=== PATIENT | male | born 1965 | race Caucasian/White ===

== ENCOUNTER 2019-12-07 19:04 | Emergency (ER) | payer SELFPAY ==
[~2019-12-07] VITALS: Ht 180.3 cm; Wt 81.6 kg
--- OUTSIDE RECORDS SUMMARY | 2019-12-07 19:59 | XMS REPORT | Continuity of Care Document ---
Author Author [facility] t Organization [facility] Address [address] [place] [address] Phone Unavailable Care Team Providers Care Surgical Aide Name Role Phone Unavailable Unavailable Payers Payer Name Policy Type Policy Number Effective Date Expiration Date S ource Problems This patient has no known problems. Allergies, Adverse Reactions, Alerts Allergy Name Allergy Type Status Severity Reaction(s) Onset Date Inacti ve Date Treating Clinician Comments Source Penicillins DA Active U 2019-08-23 00:00:00 [facility] No Known Allergies DA Active U 2019-08-23 00:00:00 [facility] Medications This patient has no known medications. Procedures This patient has no known procedures. Results Test Description Test Time Test Comments Results Result Comments Source COVID 19 Asymptomatic IH AG 2019-11-23 14:23:00 Test Item COVID 19 Asymptomatic IH AG (test code = COVNONPUIAG) NEGATIVE BASIC METABOLIC [id number] 07:18:00* Test Item Value Reference Range Interpretation Comments SODIUM (test code = NA) 140 mmol/L 136-145 N POTASSIUM (test code = K) 3.8 mmol/L 3.5-5.1 N CHLORIDE (test code = CL) 108.0 mmol/L 98-107 H CARBON DIOXIDE (test code = CO2) 26.0 mmol/L 21-32 N ANION GAP (test code = GAP) 9.8 10-20 L GLUCOSE (test code = GLU) 86 mg/dL 74-106 N BLOOD UREA NITROGEN (test code = BUN) 16 mg/dL 7-18 N GLOMERULAR FILTRATION RATE (test code = GFR) > 60 mL/min >=60 Estimated GFR by using Modified MDRD formula.Chronic kidney disease is defined as either kidney damageor GFR <60 mL/min/1.73 m2 for >3 months. CREATININE (test code = CREAT) 1.00 mg/dL 0.7-1.3 N BUN/CREATININE RATIO (test code = BUN/CREA) 15.7 10-20 N CALCIUM (test code = CA) 8.5 mg/dL 8.5-10.1 N BASIC METABOLIC [id number] 06:57:00* Test Item Value Reference Range Interpretation Comments SODIUM (test code = NA) 140 mmol/L 136-145 N POTASSIUM (test code = K) 3.8 mmol/L 3.5-5.1 N CHLORIDE (test code = CL) 108.0 mmol/L 98-107 H CARBON DIOXIDE (test code = CO2) mmol/L 21-32 ANION GAP (test code = GAP) 10-20 GLUCOSE (test code = GLU) mg/dL 74-106 BLOOD UREA NITROGEN (test code = BUN) mg/dL 7-18 GLOMERULAR FILTRATION RATE (test code = GFR) mL/min >=60 CREATININE (test code = CREAT) mg/dL 0.7-1.3 BUN/CREATININE RATIO (test code = BUN/CREA) 10-20 CALCIUM (test code = CA) mg/dL 8.5-10.1 PROTHROMBIN [id number] 06:37:00* Test Item Value Reference Range Interpretation Comments PROTHROMBIN TIME PATIENT (test code = PTP) 12.7 seconds 9.0-14.0 N INTERNATIONAL NORMAL RATIO (test code = INR) 1.1 0.8-1.2 N The therapeutic range for oral anticoagulant therapy formost indications is an international normalized ratio (INR)of between 2.0 and 3.0. The recommended therapeutic INRrange for various clinical situations is listed below: Clinical Situation INR range Pulmonary e mbolism treatment (2.0-3.0)Venous thrombosis treatmentVenous thrombosis prophylaxis (high risk surgery)Prevention of systemic embolism from: Acute myocardial infarction Valvular heart disease Atrial fibrillation Mechanical prosthetic heart valves (2.5-3.5) IS PATIENT ON ANTICOAGULANTS? YLIST ANTICOAGULANTS LOVENOXCBC W/AUTO DIFF 2019-11-23 06:32:00* Test Item Value Reference Range Interpretation Comments WHITE BLOOD CELL (test code = WBC) 6.8 K/mm3 4.5-12.5 N RED BLOOD CELL (test code = RBC) 5.07 mill/mm3 4.0-5.8 N HEMOGLOBIN (test code = HGB) 15.7 gram/dL 13.0-17.5 N HEMATOCRIT (test code = HCT) 47.0 % 42.0-52.0 N MEAN CELL VOLUME (test code = MCV) 92.7 fL 80-98 N MEAN CELL HGB (test code = MCH) 31.0 picogram 27.0-33.0 N MEAN CELL HGB CONCETRATION (test code = MCHC) 33.4 gram/dL 33.0-36. 0 N RED CELL DISTRIBUTION WIDTH (test code = RDW) 13.4 % 11.6-16. 2 N RED CELL DISTRIBUTION WIDTH SD (test code = RDW-SD) 45.7 fL 37 .0-51.0 N PLATELET COUNT (test code = PLT) 241 K/mm3 150-450 N MEAN PLATELET VOLUME (test code = MPV) 10.4 fL 6.7-11.0 N NEUTROPHIL % (test code = NT%) 43.6 % 39.0-69.0 N IMMATURE GRANULOCYTE % (test code = IG%) 0.3 % 0.0-5.0 N LYMPHOCYTE % (test code = LY%) 41.0 % 25.0-55.0 N MONOCYTE % (test code = MO%) 11.4 % 0.0-10.0 H EOSINOPHIL % (test code = EO%) 2.8 % 0.0-5.0 N BASOPHIL % (test code = BA%) 0.9 % 0.0-1.0 N NUCLEATED RBC % (test code = NRBC%) 0.0 % 0-0 N NEUTROPHIL # (test code = NT#) 2.94 K/mm3 1.8-7.7 N IMMATURE GRANULOCYTE # (test code = IG#) 0.02 x10 3/uL 0-0.03 N LYMPHOCYTE # (test code = LY#) 2.77 K/mm3 1.0-5.0 N MONOCYTE # (test code = MO#) 0.77 K/mm3 0-0.8 N EOSINOPHIL # (test code = EO#) 0.19 K/mm3 0.0-0.5 N BASOPHIL # (test code = BA#) 0.06 K/mm3 0.0-0.2 N NUCLEATED RBC # (test code = NRBC#) 0.00 K/mm3 0.0-0.1 N MANUAL DIFF REQUIRED (test code = MDIFF) NO - XR FEMUR MIN 2 VWS [id number] 18:17:00 FAX: Harvey Rodgers MD [phone] [place]: St: ADM FAX: Sumit Villavicencio NP [phone] FAX: Sven Wild [phone] Name: JAEMELVIN MIRANDA [facility] : 1965 Age/S: 54/M [address] [facility] Unit #: [id number] Loc: V.[address] [place] [address] Phys: Sumit Villavicencio NP Acct: [id number] Dis Date: Status: ADM IN ONE #: [phone] Exam Date: 11/20/20191811 FAX #: [phone] Reason: PAIN S/P FALL AT HOME EXAMS: CPT CODE: [id number] XR FEMUR MIN 2 VWS 70158 REASON FOR EXAM: PAIN S/P FALL AT HOME EXAM ORDER DATE: 11/20/2019 12:00 AM Ordering: Sumit Villavicencio NP Attending:Nilo Rodgers MD Location:[facility] PROCEDURE: - XR FEMUR MIN 2 VWS LT FINDINGS: 3 views of the left femur were obtained. The oss eous structures are unremarkable in size and shape. The joint spaces are maintained. No evidence of fracture. There is normal alignment of the left hip joint IMPRESSION: Unremarkable left femur at 1817 Reported and signed by: Costa Pantoja M.D. CC: Harvey Rodgers MD; Sumit Villavicencio NP; Sven Ayers DO Technologist: RT JAVIER(Michelle) Trnscrd Date/Time/By: 11/20/2019 (1816) : By: Coleman Orig Print D/T: S: 11/20/2019 (1819) PAGE 1 Signed Report - XR SHOULDER 2 + V [id number] 18:16:00 FAX: Harvey Rodgers MD [phone] [place]: St: ADM FAX: Sumit Villavicencio NP [phone] FAX: Sven Wild DO [phone] Name: MELVIN ROWE [facility] : 1965 Age/S: 54/M [address] [facility] Unit #: [id number] Loc: V[address] [place] [address] Phys: Sumit Villavicencio NP Acct: [id number] Dis Date: Status: ADM IN [facility] #: [phone] Exam Date: 11/20/20191811 FAX #: [phone] Reason: PAIN S/P FALL AT HOME EXAMS: CPT CODE: [id number] XR SHOULDER 2 + [place] [address] REASON FOR EXAM: PAIN S/P FALL AT HOME EXAM ORDER DATE: 11/20/2019 12:00 AM Ordering: Sumit Villavicencio NP Attending:Nilo Rodgers MD Location:[facility] PROCEDURE: - XR SHOULDER 2 + V LT FINDINGS: 3 views of the left shoulder were obtained. The o sseous structures are unremarkable in size and shape. The joint spaces ar e maintained. There is normal alignment of the humeral head. No e vidence of fracture. The acromial clavicular joint is intact I MPRESSION: Unremarkable left shoulder at 1816 Reported and signed by: Marguerite Pantoja M.D. CC: Harvey Rodgers MD; Sumit Villavicencio NP; Sven Luna DO Technologist: RT JAVIER(R) Tori rnscrd Date/Time/By: 11/20/2019 (1815) : By: Coleman Orig Print D/T: S: 11/20/2019 (1818) PAGE 1 Sign ed Report [id number] 23:10:00* Test Item Value Reference Range Interpretation Comments TROPONIN-I (test code = TROPI) <0.015 ng/mL 0-0.045 N COMMENTS TO FUNERAL ARRANGEMENT DIRECTOR: COLLECT 3 HOURS AFTER PREVIOUS [id number] 18:56:00* Test Item Value Reference Range Interpretation Comments TROPONIN-I (test code = TROPI) <0.015 ng/mL 0-0.045 N COMMENTS TO FUNERAL ARRANGEMENT DIRECTOR: COLLECT 3 HOURS AFTER PREVIOUS SAMPLEDRUGS OF ABUSE SCREEN [id number] 15:32:00* Test Item Value Reference Range Interpretation Comments UA PH DIPSTICK (test code = CIERA) 5.5 5.0-8.0 URN COCAINE (test code = COCAURN) NEGATIVE <300 ng/mL URN CANNABINOIDS (test code = CANNABURN) NEGATIVE <50 ng/mL URN AMPHETAMINE (test code = AMPHETURN) NEGATIVE <1000 ng/mL URN BARBITURATE (test code = BARBITURN) NEGATIVE <200 ng/mL URN BENZODIAZEPINE (test code = BENZOURN) NEGATIVE <200 ng/mL URN OPIATES (test code = OPIATURN) NEGATIVE <300 ng/mL URN PHENCYCLIDINE (PCP) (test code = PHENCURN) NEGATIVE <25 ng/ mL URN METHADONE (test code = METHAURN) NEGATIVE <300 ng/mL SAMPLE TO BE COLLECTED BY NURSEDRUGS OF ABUSE SCREEN [id number] 14:48:00* Test Item Value Reference Range Interpretation Comments UA PH DIPSTICK (test code = CIERA) 5.0-8.0 URN COCAINE (test code = COCAURN) NEGATIVE <300 ng/mL URN CANNABINOIDS (test code = CANNABURN) NEGATIVE <50 ng/mL URN AMPHETAMINE (test code = AMPHETURN) NEGATIVE <1000 ng/mL URN BARBITURATE (test code = BARBITURN) NEGATIVE <200 ng/mL URN BENZODIAZEPINE (test code = BENZOURN) NEGATIVE <200 ng/mL URN OPIATES (test code = OPIATURN) NEGATIVE <300 ng/mL URN PHENCYCLIDINE (PCP) (test code = PHENCURN) NEGATIVE <25 ng/ mL URN METHADONE (test code = METHAURN) NEGATIVE <300 ng/mL SAMPLE TO BE COLLECTED BY NURSEURINALYSIS [id number] 10:52:00* Test Item Value Reference Range Interpretation Comments UA COLOR (test code = COLU) COLORLESS YELLOW A UA APPEARANCE (test code = APPU) CLEAR CLEAR UA GLUCOSE DIPSTICK (test code = DGLUU) NEGATIVE mg/dL NEGATIVE UA BILIRUBIN DIPSTICK (test code = BILU) NEGATIVE mg/dL NEGATIVE UA KETONE DIPSTICK (test code = KETU) NEGATIVE mg/dL NEGATIVE UA SPECIFIC GRAVITY (test code = SGU) 1.005 1.001-1.035 UA BLOOD DIPSTICK (test code = YAYA) Negative mg/dL NEGATIVE UA PH DIPSTICK (test code = CIERA) 5.5 5.0-8.0 UA PROTEIN DIPSTICK (test code = PROU) NEGATIVE mg/dL NEGATIVE UA UROBILINIOGEN DIPSTICK (test code = URO) Normal mg/dL NEGATIVE UA NITRITE DIPSTICK (test code = JANUSZ) NEGATIVE NEGATIVE UA LEUKOCYTE ESTERASE W REFLEX (test code = LEUUR) NEGATIVE Osmar/uL NEGATIVE UA WBC (test code = WBCU) 0-5 per HPF 0-5 UA RBC (test code = RBCU) NONE SEEN #/HPF 0-5 UA EPITHELIAL CELLS (test code = EPIU) None seen per HPF FEW UA BACTERIA (test code = BACU) NONE SEEN #/HPF NONE Urine Source? Clean Catch- CT C-SPINE W/O [id number] 10:27:00 Name: MELVIN ROWE [facility] : 1965 Age/S: 54 / M [address] [facility] Unit #: [id number] Loc: [place] [address] Phys: NikoKyra tony DO Acct: [id number] Di s Date: Status: REG ER PHONE #: Exam Date: 11/19/2019 1011 FAX #: Reason: Neck Pain EXAMS: CPT CODE: [id number] CT C-SPINE W/O CONTRAST 30519 HISTORY: Neck pain. COMPARISON: None available. CT cervical spine without con trast: Automated exposure control. Location: [facility]. No acute fracture of the cervical spine. No prevertebral soft tissue swelling is noted either. Scattered posterior osteophyte and mild facet hypertrophy without significant canal or foraminal stenosis throughout the cervical spine. Unremarkable thyroid glands. Superior mediastinum is unremarkable. Lung apices are clear. Anatomic alignment. Vertebral body heights are maintained. Disc spaces are preserved. Uncovertebral joints are prese rved. IMPRESSION: No acute fracture. Anatomic alignment. Vertebral body heights are maintained. Electronic ally Signed by Shaista Watson on 11/19/2019 at 1027 R eported and signed by: Ced Watson M.D. CC: Sven Ayers DO; Becky Pope DO Technologist:Nieves HerrmannRT(R),CT CTDI: DLP: Trnscb Date/Time: 11/19/2019 (1027) [email or web address] Orig Print D/T: S: 11/19/2019 (7150) PAGE 1 Signed Report BASIC METABOLIC PANEL 2019-11-19 10:18:00* Test Item Value Reference Range Interpretation Comments SODIUM (test code = NA) 139 mmol/L 136-145 N POTASSIUM (test code = K) 3.9 mmol/L 3.5-5.1 N CHLORIDE (test code = CL) 108.0 mmol/L 98-107 H CARBON DIOXIDE (test code = CO2) 28.0 mmol/L 21-32 N ANION GAP (test code = GAP) 6.9 10-20 L GLUCOSE (test code = GLU) 82 mg/dL 74-106 N BLOOD UREA NITROGEN (test code = BUN) 15 mg/dL 7-18 N GLOMERULAR FILTRATION RATE (test code = GFR) > 60 mL/min >=60 Estimated GFR by using Modified MDRD formula.Chronic kidney disease is defined as either kidney damageor GFR <60 mL/min/1.73 m2 for >3 months. CREATININE (test code = CREAT) 1.00 mg/dL 0.7-1.3 N BUN/CREATININE RATIO (test code = BUN/CREA) 14.9 10-20 N CALCIUM (test code = CA) 8.7 mg/dL 8.5-10.1 N HEPATIC FUNCTION [id number] 10:18:00* Test Item Value Reference Range Interpretation Comments TOTAL PROTEIN (test code = PROT) 6.9 gram/dL 6.4-8.2 N ALBUMIN (test code = ALB) 3.1 g/dL 3.4-5.0 L GLOBULIN (test code = GLOB) 3.8 gram/dL 2.7-4.2 N ALBUMIN/GLOBULIN RATIO (test code = A/G) 0.8 0.75-1.50 N BILIRUBIN TOTAL (test code = BILT) 0.60 mg/dL 0.0-1.0 N BILIRUBIN DIRECT (test code = BILD) 0.15 mg/dL 0.0-0.20 N SGOT/AST (test code = AST) 15 IUnit/L 15-37 N SGPT/ALT (test code = ALT) 30 IUnit/L 12-78 N ALKALINE PHOSPHATASE TOTAL (test code = ALKP) 104 IUnit/L 45-117 N Note change in reference range due to change in reagent. [id number] 10:18:00* Test Item Value Reference Range Interpretation Comments LIPASE (test code = LIP) 71 U/L 73.0-393.0 L [id number] 10:18:00* Test Item Value Reference Range Interpretation Comments TROPONIN-I (test code = TROPI) <0.015 ng/mL 0-0.045 N - CT HEAD/BRAIN W/O [id number] 10:16:00 Name: MELVIN ROWE [facility] : 1965 Age/S: 54 / M [address] Unit #: [id number] Loc: [place] [address] Phys: Becky Pope DO Acct: [id number] Dis Date: Status: REG ER PHONE #: [phone] Exam Date: 11/19/2019 1011 FAX #: [phone] Reason: HEADACHE EXAMS: CPT CODE: [id number] CT HEAD/BRAIN W/O CONT 68629 HISTORY: Pain after trauma. COMPARISON: Head CT from September 09, 2019. Location: [facility]. CT brain without contrast: Automated exposure control. No acute intracranial bleeds or extra-axial collections are noted. No acute territorial vascular infarction is noted. 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 The sulci, gyri, ventricles and subarachnoid spaces and the basilar cisterns are normal for patient's age. No herniation or hydrocephalus or midline shift is noted. Mild periventricular ischemic gliosis is noted. Age-appropriate atrophy is noted as well. Portions of the visualized paranasal sinuses are normal. Underpneumatized and sclerotic bilateral mastoid air cells, greater on the left with mild otitis. No obvious bony calvarial defect is noted. IMPRESSION: No acute intracranial bleeds or extra-axial jose ections. No acute territorial vascular infarction. No herniation or hydrocephalus or midline shift. Chron ic white matter ischemic disease and atrophy . E lectronically Signed by Shaista Watson on 11/19/2019 at 1016 Reported and signed by: Ced Watson M.D. PAGE 1 Signed Report (CONTINUED) Name: MELVIN ROWE [facility] : 1965 Age/S: 54 / M [address] Unit #: [id number] Loc: [place] [address] Phys: Becky Pope DO Acct: [id number] Dis Date: Status: REG ER PHONE #: [phone] Exam Date: 11/19/2019 1011 FAX #: [phone] Reason: HEADACHE EXAMS: CPT CODE: [id number] CT HEAD/BRAIN W/O CONT 47414 <Continued> CC: Sven Ayers DO; Becky Pope DO Technologist:Nieves Herrmann,RT(R),CT CTDI: DLP: Trnscb Date/Time: 11/19/2019 (1016) [email or web address] Orig Print D/T: S: 11/19/2019 (8870) PAGE 2 Signed Report - XR PELVIS 1/2 [id number] 10:12:00 FAX: Sven Wild DO [phone] [place]: St: [facility] FAX: Becky Pope DO Name: MELVIN ROWE [facility] : 1965 Age/S: 54/M [address] [facility] Unit #: [id number] Loc: [place] [address] Phys: Becky Pope DO Acct: [id number] Dis Date: Status: REG ER PHONE #: [phone] Exam Date: 11/19/2019 0957 FAX #: [phone] Reason: PELVIC PAIN EXAMS: CPT CODE: [id number] XR PELVIS 1/2 VIEWS 96090 HISTORY: Pain after trauma. Location: [facility]. Single view chest: COMPARISON: September 02, 2019. No acute infiltrates, effusion or congestion is noted. Mild cardiomegaly. Elevated right hemidiaphragm. IMPRESSION: No acute infiltrates, effusion or congestion. Single v iew pelvis: COMPARISON: September 09, 2019. Pelvi c ring is intact on a single view. Symphysis is well opposed. Pelvic rin g is intact on a single view. Additional views would be of value. Hip wanda ints are preserved without AVN. Trabecular pattern and mineralization ar e normal. SI joints are preserved. IMPRESSION: No acute fracture or dislocation. Hip joints are preserved without AV N. at 1012 Reported and signed by: Ced Watson M.D. CC: Sven Ayers DO; Becky Pope DO Technologist: Lizeth Jones(R); RT Taryn(R) [facility] Date/Time/By: 11/19/2019 (1 012) : By: [email or web address] Orig Print D/T: S: 11/19/2019 (7547) PAGE 1 Signed Report - XR CHEST 1 [id number] 10:12:00 FAX: Sven Wild DO [phone] [place]: St: REG FAX: Becky Pope DO Name: MELVIN ROWE [facility] : 1965 Age/S: 54/M [address] [facility] Unit #: [id number] Loc: [place] [address] Phys: Becky Pope DO Acct: [id number] Dis Date: Status: REG ER PHONE #: [phone] Exam Date: 11/19/2019 0953 FAX #: [phone] Reason: CHEST PAIN EXAMS: CPT CODE: [id number] XR CHEST 1 V 96097 HISTORY: Pain after trauma. Location: [facility]. Single view chest: COMPARISON: September 02, 2019. No acute infiltrates, effusion or congestion is noted. Mild cardiomegaly. Elevated right hemidiaphragm. IMPRESSION: No acute infiltrates, effusion or congestion. Single v iew pelvis: COMPARISON: September 09, 2019. Pelvi c ring is intact on a single view. Symphysis is well opposed. Pelvic rin g is intact on a single view. Additional views would be of value. Hip wanda ints are preserved without AVN. Trabecular pattern and mineralization ar e normal. SI joints are preserved. IMPRESSION: No acute fracture or dislocation. Hip joints are preserved without AV N. at 1012 Reported and signed by: Ced Watson M.D. CC: Sven Ayers DO; Becky Pope DO Technologist: Lizeth Jones(R); RT Taryn(R) Trnnhrd Date/Time/By: 11/19/2019 (1 012) : By: [email or web address] Orig Print D/T: S: 11/19/2019 (7836) PAGE 1 Signed Report PROTHROMBIN [id number] 10:11:00* Test Item Value Reference Range Interpretation Comments PROTHROMBIN TIME PATIENT (test code = PTP) 18.6 seconds 9.0-14.0 H INTERNATIONAL NORMAL RATIO (test code = INR) 1.6 0.8-1.2 H The therapeutic range for oral anticoagulant therapy formost indications is an international normalized ratio (INR)of between 2.0 and 3.0. The recommended therapeutic INRrange for various clinical situations is listed below: Clinical Situation INR range Pulmonary e mbolism treatment (2.0-3.0)Venous thrombosis treatmentVenous thrombosis prophylaxis (high risk surgery)Prevention of systemic embolism from: Acute myocardial infarction Valvular heart disease Atrial fibrillation Mechanical prosthetic heart valves (2.5-3.5) IS PATIENT ON ANTICOAGULANTS? NTHROMBOPLASTIN TIME [id number] 10:11:00* Test Item Value Reference Range Interpretation Comments THROMBOPLASTIN TIME PARTIAL (test code = PTT) 47.5 seconds 23.0-37. 0 H IS PATIENT ON ANTICOAGULANTS? NBASIC METABOLIC [id number] 10:04:00* Test Item Value Reference Range Interpretation Comments SODIUM (test code = NA) 139 mmol/L 136-145 N POTASSIUM (test code = K) 3.9 mmol/L 3.5-5.1 N CHLORIDE (test code = CL) 108.0 mmol/L 98-107 H CARBON DIOXIDE (test code = CO2) mmol/L 21-32 ANION GAP (test code = GAP) 10-20 GLUCOSE (test code = GLU) mg/dL 74-106 BLOOD UREA NITROGEN (test code = BUN) mg/dL 7-18 GLOMERULAR FILTRATION RATE (test code = GFR) mL/min >=60 CREATININE (test code = CREAT) mg/dL 0.7-1.3 BUN/CREATININE RATIO (test code = BUN/CREA) 10-20 CALCIUM (test code = CA) mg/dL 8.5-10.1 HEPATIC FUNCTION [id number] 10:04:00* Test Item Value Reference Range Interpretation Comments TOTAL PROTEIN (test code = PROT) gram/dL 6.4-8.2 ALBUMIN (test code = ALB) g/dL 3.4-5.0 GLOBULIN (test code = GLOB) gram/dL 2.7-4.2 ALBUMIN/GLOBULIN RATIO (test code = A/G) 0.75-1.50 BILIRUBIN TOTAL (test code = BILT) mg/dL 0.0-1.0 BILIRUBIN DIRECT (test code = BILD) mg/dL 0.0-0.20 SGOT/AST (test code = AST) IUnit/L 15-37 SGPT/ALT (test code = ALT) IUnit/L 12-78 ALKALINE PHOSPHATASE TOTAL (test code = ALKP) IUnit/L 45-117 [id number] 10:04:00* Test Item Value Reference Range Interpretation Comments LIPASE (test code = LIP) U/L 73.0-393.0 [id number] 10:04:00* Test Item Value Reference Range Interpretation Comments TROPONIN-I (test code = TROPI) ng/mL 0-0.045 CBC W/O [id number] 10:02:00* Test Item Value Reference Range Interpretation Comments WHITE BLOOD CELL (test code = WBC) 6.7 K/mm3 4.5-12.5 N RED BLOOD CELL (test code = RBC) 5.16 mill/mm3 4.0-5.8 N HEMOGLOBIN (test code = HGB) 16.2 gram/dL 13.0-17.5 N HEMATOCRIT (test code = HCT) 48.1 % 42.0-52.0 N MEAN CELL VOLUME (test code = MCV) 93.2 fL 80-98 N MEAN CELL HGB (test code = MCH) 31.4 picogram 27.0-33.0 N MEAN CELL HGB CONCETRATION (test code = MCHC) 33.7 gram/dL 33.0-36. 0 N RED CELL DISTRIBUTION WIDTH (test code = RDW) 13.4 % 11.6-16. 2 N PLATELET COUNT (test code = PLT) 259 K/mm3 150-450 N MEAN PLATELET VOLUME (test code = MPV) 10.0 fL 6.7-11.0 N COMPREHENSIVE METABOLIC [id number] 12:54:00* Test Item Value Reference Range Interpretation Comments SODIUM (test code = NA) 139 mEq/L 134-147 N POTASSIUM (test code = K) 3.5 mEq/L 3.4-5.0 N CHLORIDE (test code = CL) 107 mEq/L 100-108 N CARBON DIOXIDE (test code = CO2) 26 mEq/L 21-33 N ANION GAP (test code = GAP) 10 0-20 N GLUCOSE (test code = GLU) 130 mg/dL 70-110 H BLOOD UREA NITROGEN (test code = BUN) 17 mg/dL 7-18 N GLOMERULAR FILTRATION RATE (test code = GFR) 78.5 90-95 L Units of measure = ml/min/1.73 m2 CREATININE (test code = CREAT) 1.0 mg/dL 0.6-1.3 N TOTAL PROTEIN (test code = PROT) 6.2 g/dL 6.4-8.2 L ALBUMIN (test code = ALB) 2.50 g/dL 3.4-5.0 L CALCIUM (test code = CA) 8.2 mg/dL 8.0-10.5 N BILIRUBIN TOTAL (test code = BILT) 0.3 MG/DL <1.5 N SGOT/AST (test code = AST) 32 IUnit/L 15-37 N SGPT/ALT (test code = ALT) 100 IUnit/L 15-65 H ALKALINE PHOSPHATASE TOTAL (test code = ALKP) 111 IUnit/L 20-125 N CBC W/AUTO [id number] 12:51:00* Test Item Value Reference Range Interpretation Comments WHITE BLOOD CELL (test code = WBC) 7.95 x10 3/uL 4.5-11.0 N RED BLOOD CELL (test code = RBC) 4.67 x10 6/uL 4.00-5.60 N HEMOGLOBIN (test code = HGB) 15.0 g/dL 12.5-16.9 N HEMATOCRIT (test code = HCT) 44.9 % 37.5-50.7 N MEAN CELL VOLUME (test code = MCV) 96.1 fL 81.0-99.0 N MEAN CELL HGB (test code = MCH) 32.1 pg 27.0-33.0 N MEAN CELL HGB CONCETRATION (test code = MCHC) 33.4 g/dL 33.0-37. 0 N RED CELL DISTRIBUTION WIDTH CV (test code = RDW) 12.8 % 11.5- 14.5 N RED CELL DISTRIBUTION WIDTH SD (test code = RDW-SD) 45.3 fL 37 .0-54.0 N PLATELET COUNT (test code = PLT) 308 x10 3/uL 150-400 N MEAN PLATELET VOLUME (test code = MPV) 10.0 fL 7.0-9.0 H NEUTROPHIL % (test code = NT%) 61.2 % 56.0-77.0 N IMMATURE GRANULOCYTE % (test code = IG%) 0.5 % 0.0-2.0 N LYMPHOCYTE % (test code = LY%) 27.4 % 14.0-32.0 N MONOCYTE % (test code = MO%) 8.6 % 4.8-9.0 N EOSINOPHIL % (test code = EO%) 1.9 % 0.3-3.7 N BASOPHIL % (test code = BA%) 0.4 % 0.0-2.0 N NUCLEATED RBC % (test code = NRBC%) 0.0 % 0-0 N NEUTROPHIL # (test code = NT#) 4.87 x10 3/uL 2.0-7.6 N IMMATURE GRANULOCYTE # (test code = IG#) 0.04 x10 3/uL 0.00-0.03 H LYMPHOCYTE # (test code = LY#) 2.18 x10 3/uL 1.0-3.8 N MONOCYTE # (test code = MO#) 0.68 x10 3/uL 0.1-0.8 N EOSINOPHIL # (test code = EO#) 0.15 x10 3/uL 0.0-0.2 N BASOPHIL # (test code = BA#) 0.03 x10 3/uL 0.0-0.2 N NUCLEATED RBC # (test code = NRBC#) 0.00 x10 3/uL 0.0-0.1 N MANUAL DIFF REQUIRED (test code = MDIFF) NO [id number] 05:50:00* Test Item Value Reference Range Interpretation Comments GLUBED (test code = GLUBED) 98 MG/DL 70-110 N Performed by certified well flow operator at [facility] [id number] 23:37:00* Test Item Value Reference Range Interpretation Comments GLUBED (test code = GLUBED) 120 MG/DL 70-110 H Performed by certified well flow operator at [facility] [id number] 20:53:00* Test Item Value Reference Range Interpretation Comments GLUBED (test code = GLUBED) 114 MG/DL 70-110 H Performed by certified well flow operator at [facility] [id number] 11:55:00* Test Item Value Reference Range Interpretation Comments GLUBED (test code = GLUBED) 112 MG/DL 70-110 H Performed by certified well flow operator at [facility] [id number] 07:59:00* Test Item Value Reference Range Interpretation Comments GLUBED (test code = GLUBED) 102 MG/DL 70-110 N Performed by certified well flow operator at [facility] [id number] 17:46:00* Test Item Value Reference Range Interpretation Comments GLUBED (test code = GLUBED) 106 MG/DL 70-110 N Performed by certified well flow operator at [facility] [id number] 16:57:00* Test Item Value Reference Range Interpretation Comments AMMONIA (test code = AMM) 45 umol/L 0-35 H [id number] 12:22:00* Test Item Value Reference Range Interpretation Comments GLUBED (test code = GLUBED) 102 MG/DL 70-110 N Performed by certified well flow operator at [facility] CBC W/AUTO [id number] 09:42:00* Test Item Value Reference Range Interpretation Comments WHITE BLOOD CELL (test code = WBC) 9.11 x10 3/uL 4.5-11.0 N RED BLOOD CELL (test code = RBC) 4.83 x10 6/uL 4.00-5.60 N HEMOGLOBIN (test code = HGB) 15.7 g/dL 12.5-16.9 N HEMATOCRIT (test code = HCT) 47.9 % 37.5-50.7 N MEAN CELL VOLUME (test code = MCV) 99.2 fL 81.0-99.0 H MEAN CELL HGB (test code = MCH) 32.5 pg 27.0-33.0 N MEAN CELL HGB CONCETRATION (test code = MCHC) 32.8 g/dL 33.0-37. 0 L RED CELL DISTRIBUTION WIDTH CV (test code = RDW) 12.5 % 11.5- 14.5 N RED CELL DISTRIBUTION WIDTH SD (test code = RDW-SD) 45.8 fL 37 .0-54.0 N PLATELET COUNT (test code = PLT) 381 x10 3/uL 150-400 N MEAN PLATELET VOLUME (test code = MPV) 10.1 fL 7.0-9.0 H NEUTROPHIL % (test code = NT%) 57.6 % 56.0-77.0 N IMMATURE GRANULOCYTE % (test code = IG%) 0.7 % 0.0-2.0 N LYMPHOCYTE % (test code = LY%) 24.6 % 14.0-32.0 N MONOCYTE % (test code = MO%) 11.7 % 4.8-9.0 H EOSINOPHIL % (test code = EO%) 4.9 % 0.3-3.7 H BASOPHIL % (test code = BA%) 0.5 % 0.0-2.0 N NUCLEATED RBC % (test code = NRBC%) 0.0 % 0-0 N NEUTROPHIL # (test code = NT#) 5.24 x10 3/uL 2.0-7.6 N IMMATURE GRANULOCYTE # (test code = IG#) 0.06 x10 3/uL 0.00-0.03 H LYMPHOCYTE # (test code = LY#) 2.24 x10 3/uL 1.0-3.8 N MONOCYTE # (test code = MO#) 1.07 x10 3/uL 0.1-0.8 H EOSINOPHIL # (test code = EO#) 0.45 x10 3/uL 0.0-0.2 H BASOPHIL # (test code = BA#) 0.05 x10 3/uL 0.0-0.2 N NUCLEATED RBC # (test code = NRBC#) 0.00 x10 3/uL 0.0-0.1 N MANUAL DIFF REQUIRED (test code = MDIFF) NO COMPREHENSIVE METABOLIC [id number] 08:45:00* Test Item Value Reference Range Interpretation Comments SODIUM (test code = NA) 139 mEq/L 134-147 N POTASSIUM (test code = K) 3.9 mEq/L 3.4-5.0 N CHLORIDE (test code = CL) 108 mEq/L 100-108 N CARBON DIOXIDE (test code = CO2) 29 mEq/L 21-33 N ANION GAP (test code = GAP) 6 0-20 N GLUCOSE (test code = GLU) 100 mg/dL 70-110 N BLOOD UREA NITROGEN (test code = BUN) 22 mg/dL 7-18 H GLOMERULAR FILTRATION RATE (test code = GFR) 88.6 90-95 L Units of measure = ml/min/1.73 m2 CREATININE (test code = CREAT) 0.9 mg/dL 0.6-1.3 N TOTAL PROTEIN (test code = PROT) 6.7 g/dL 6.4-8.2 N ALBUMIN (test code = ALB) 2.40 g/dL 3.4-5.0 L CALCIUM (test code = CA) 8.9 mg/dL 8.0-10.5 N BILIRUBIN TOTAL (test code = BILT) 0.4 MG/DL <1.5 N SGOT/AST (test code = AST) 27 IUnit/L 15-37 N SGPT/ALT (test code = ALT) 41 IUnit/L 15-65 N ALKALINE PHOSPHATASE TOTAL (test code = ALKP) 122 IUnit/L 20-125 N [id number] 07:57:00* Test Item Value Reference Range Interpretation Comments GLUBED (test code = GLUBED) 104 MG/DL 70-110 N Performed by certified well flow operator at [facility] - CT HEAD/BRAIN W/O [id number] 23:34:00 Name: MELVIN ROWE : 1965 Age/S: 54 / M [address] [place] [address] Unit #: [id number] Loc: [place] [address] Phys: Anat Chan SERVICE OBSERVER Acct: [id number] Dis Date: Status: ADM IN PHONE #: [phone] Exam Date: 09/09/2019 2311 FAX #: [phone] Reason: ams eval for hemorrhagic transformation EXAMS: CPT CODE: [id number] CT HEAD/BRAIN W/O CONT 55717 CT HEAD WITHOUT CONTRAST DATED 09/09/2019. INDICATION: Right MCA infarct. Altered mental status. Evaluate for hemorrhagic transformation. COMPARISON: CT head dated 09/03/2019. A CT of the head was performed using thin slice noncontrast axial images with subsequent sagittal and coronal reconstruction. CT imaging performed at this location utilizes radiation dose optimization techniques which include one or more of the followin) Automated exposure control; 2) Adjustment of mA and/or kV; 3) Use of iterative reconstructive technique. CT radiation dose DLP (mGy-cm): 601. FINDINGS: Examination of the intracranial structures reveals no new abnormal areas of increased or decreased density. The subacute nonhemorrhagic infarct involving the right basal ganglia is unchanged in appearance. The ventricular system is stable in size and configuration without midline shift. No intra or extra-axial masses or fluid collections are identified. There is no CT evidence of acute intracranial hemorrhage. No acute CT abnormalities of the calvarium are detected. The included portions of the paranasal sinuses and mastoid air cells appear clear of acute disease. Chronic inflammatory changes are noted in the left frontal recess. IMPRESSION: 1. Stable subacute nonhemorrhagic infarct in the right MCA distribution with involvement the right basal ganglia. There is no CT evidence of acute intracranial hemorrhage, intracranial mass or new intracranial ischemia. SL: 131 at 2334 Reported and signed by: Josr Rapp M.D. PAGE 1 Signed Report (CONTINUED) Name: MELVIN ROWE : 1965 Age/S: 54 / M [address] [place] [address] Unit #: [id number] Loc: [place] [address] Phys: Abraham Chan [facility] SERVICE OBSERVER Acct: [id number] Dis Date: Status: ADM IN PHONE #: Exam Date: 09/09/20192310 FAX #: Reason: ams eval for hemorrhagic transformation EXAMS: CPT CODE: [id number] CT HEAD/BRAIN W /O CONT 07935 <Continued> CC: Sven Ayers DO; Anat Chan SERVICE OBSERVER; Storm Woods MD Technologist:Massiel Cao, RT(R) CTDI: DLP: Trnscb Date/Time: 09/09/2019 (0598) t.XI Orig Print D/T: S: 09/09/2019 (4123) PAGE 2 Signed Report - XR ABDOMEN 1V (KUB)2019-09-09 21:24:00 FAX: Sven Wild DO [phone] [place]: St: ADM FAX: Anat Chan NP [phone] FAX: Storm Granda I --------- Name: MELVIN ROWE [facility] : 1965 Age/S: 54/M [address] [place] [address] Un it #: [id number] Loc: [place] [address] Phys: Anat Chan SERVICE OBSERVER Acct: [id number] Dis Date: Status: ADM IN PH ONE #: [phone] Exam Date: 09/09/20192036 FAX #: [phone] Reason: decreased appetite-eval for constipation EXAMS: CPT CODE: [id number] XR ABDOMEN 1V (KUB) 23335 Abdomen, single view dated 09/09/2019. HISTORY: Decreased appetite. Constipation. AP supine images the abdomen demonstrate an unremarkable bowel gas pattern. Contrast-containing stool is noted in the rectum, likely related to the modified barium swallow on 09/03/2019. There is no evidence of organomegaly or pathologic abdominal calcification. Assessment for f ree intraperitoneal air is limited by supine positioning. The lung bases appear clear. IMPRESSION: 1. No acute radiographic abno rmalities of the abdomen are detected. SL: 131 at 2123 Reported and sig petty by: Josr Rapp M.D. CC: Sven Ayers DO; Anat Chan NP; Storm Woods MD Technologist: DAGMAR Jefferson) Trnscrd Date/Time/By: 09/09/2019 (2123) : By: Darron Orig Print D/T: S: 09/09/2019 (2126) PAGE 1 Signed Report - XR HIP W/PEL UNI 2+V [id number] 19:41:00 FAX: Sven Wild DO [phone] [place]: St: ADM FAX: Anat Chan NP [phone] FAX: Storm Granda I [phone] Name: MELVIN ROWE [facility] : 1965 Age/S: 54/M [address] [place] [address] Unit #: [id number] Loc: [place] [address] Phys: Anat Chan NP Acct: [id number] Dis Date: Status: ADM IN ONE #: [phone] Exam Date: 09/09/20191922 FAX #: [phone] Reason: LEFT HIP PAIN EXAMS: CPT CODE: [id number] XR HIP W/PEL UNI 2+[place] [address] Left hip, 2 vi ews dated 09/09/2019. HISTORY: Left hip pain. Images of the left hip were obtained in 2 projections. The proximal left femur d emonstrates no evidence of fracture or bone destruction. The femoral head is normally located. The left acetabulum and bony pelvis are unremarkabl e. IMPRESSION: 1. No acute bony abnormalities of the le ft hip are detected. SL: 131 a t 1940 Reported and signed by: Josr Rapp M.D. CC: Sven Ayers DO; Anat Chan NP; Storm Woods MD Technologist: RT Mo(R) Trnscrd Date/Time/By: 09/09/2019 (1940) : By: Darron Orig Print D/T: S: 09/09/2019 (1943) PAGE 1 Signed Report [id number] 16:30:00* Test Item Value Reference Range Interpretation Comments GLUBED (test code = GLUBED) 96 MG/DL 70-110 N Performed by certified well flow operator at [facility] [id number] 11:42:00* Test Item Value Reference Range Interpretation Comments GLUBED (test code = GLUBED) 144 MG/DL 70-110 H Performed by certified well flow operator at [facility] [id number] 07:48:00* Test Item Value Reference Range Interpretation Comments GLUBED (test code = GLUBED) 103 MG/DL 70-110 N Performed by certified well flow operator at [facility] COMPREHENSIVE METABOLIC [id number] 07:39:00* Test Item Value Reference Range Interpretation Comments SODIUM (test code = NA) 137 mEq/L 134-147 N POTASSIUM (test code = K) 3.8 mEq/L 3.4-5.0 N CHLORIDE (test code = CL) 106 mEq/L 100-108 N CARBON DIOXIDE (test code = CO2) 29 mEq/L 21-33 N ANION GAP (test code = GAP) 6 0-20 N GLUCOSE (test code = GLU) 97 mg/dL 70-110 N BLOOD UREA NITROGEN (test code = BUN) 18 mg/dL 7-18 N GLOMERULAR FILTRATION RATE (test code = GFR) 101.5 90-95 H Units of measure = ml/min/1.73 m2 CREATININE (test code = CREAT) 0.8 mg/dL 0.6-1.3 N TOTAL PROTEIN (test code = PROT) 6.6 g/dL 6.4-8.2 N ALBUMIN (test code = ALB) 2.20 g/dL 3.4-5.0 L CALCIUM (test code = CA) 8.5 mg/dL 8.0-10.5 N BILIRUBIN TOTAL (test code = BILT) 0.5 MG/DL <1.5 N SGOT/AST (test code = AST) 25 IUnit/L 15-37 N SGPT/ALT (test code = ALT) 33 IUnit/L 15-65 N ALKALINE PHOSPHATASE TOTAL (test code = ALKP) 113 IUnit/L 20-125 N [id number] 07:39:00* Test Item Value Reference Range Interpretation Comments MAGNESIUM (test code = MAG) 2.40 mg/dL 1.8-2.4 N [id number] 20:42:00* Test Item Value Reference Range Interpretation Comments GLUBED (test code = GLUBED) 111 MG/DL 70-110 H Performed by certified well flow operator at [facility] [id number] 12:57:00* Test Item Value Reference Range Interpretation Comments GLUBED (test code = GLUBED) 107 MG/DL 70-110 N Performed by certified well flow operator at [facility] [id number] 09:14:00* Test Item Value Reference Range Interpretation Comments GLUBED (test code = GLUBED) 105 MG/DL 70-110 N Performed by certified well flow operator at [facility] [id number] 07:45:00* Test Item Value Reference Range Interpretation Comments GLUBED (test code = GLUBED) 92 MG/DL 70-110 N Performed by certified well flow operator at [facility] [id number] 17:34:00* Test Item Value Reference Range Interpretation Comments GLUBED (test code = GLUBED) 132 MG/DL 70-110 H Performed by certified well flow operator at [facility] Coronavirus 2019 nCoV [id number] 06:50:00* Test Item Value Reference Range Interpretation Comments Coronavirus 2019 nCoV Bedside (test code = [id number]) Negative Negative Negative results should be treated as presumptive and, ifinconsistent with clinical signs and symptoms or necessaryfor patient management, should be tested with an alternativemolecular assay. Negative results do not preclude [id number] and should not be used as the sole basis forpatient management decisions. Negative results should beconsidered in the context of a patient's recent exposures,history, presence of clinical signs and symptoms consistentwith COVID-19. Acknowledged? [id number] 21:21:00* Test Item Value Reference Range Interpretation Comments GLUBED (test code = GLUBED) 83 MG/DL 70-110 N Performed by certified well flow operator at [facility] [id number] 13:41:00* Test Item Value Reference Range Interpretation Comments GLUBED (test code = GLUBED) 92 MG/DL 70-110 N Performed by certified well flow operator at [facility] - XR SWLW FUNC W/C [id number] 11:24:00 FAX: Sven Wild DO [phone] [place]: St: ADM FAX: Anat Chan NP [phone] FAX: Storm Granda I [phone] Name: MELVIN ROWE [facility] : 1965 Age/S: 54/M [address] [place] [address] Unit #: [id number] Loc: [address] [place] [address] Phys: Anat Chan NP Acct: [id number] Dis Date: Status: ADM IN ONE #: [phone] Exam Date: 09/03/2019 1055 FAX #: [phone] Reason: EVOLVING CVA; WORSENING SWALLOW FUNCTION EXAMS: CPT CODE: [id number] XR SWLW FUNC W/C V 26297 Modified barium swallow: HISTORY: Cerebrovascular accident with worsening swallow function. FINDINGS: The study was performed with speech pathology using various barium consistencies. The oral stage of the swallow is pr olonged with reduced oral pharyngeal coordination. There is a delay in in itiation of the swallow for the pharyngeal phase. Pooling and residual no mini in the valleculae and piriform sinuses with all consistencies. There is a flash of laryngeal penetration with thin liquid. There is no a spiration with any material. Please refer to speech pathology report for additional exam detail. Reference air kerma: 15 mGy, fluoroscopy t ze 4 minutes, 33 seconds SL: EG-H at 1124 Reported and signed by: Carroll Bright M.D. CC: Sven Ayers DO; Anat Chan SERVICE OBSERVER; Storm Woods MD Technologist: RT Josh(R) Trnscrd Date/Time/By: 09/03/2019 (112 4) : By: GuilhermeETG Orig Print D/T: S: 09/03/2019 (1123) PAGE 1 Signed Report - CT HEAD/BRAIN W/O [id number] 11:19:00 Name: MELVIN ROWE [facility] : 1965 Age/S: 54 / M [address] [place] [address] Unit #: [id number] Loc: [place] [address] Phys: Bao Hauser MD Acct: [id number] Dis Date: Status: ADM IN PHONE #: [phone] Exam Date: 09/03/2019 1040 FAX #: [phone] Reason: POSSIBLE HGIC TRANSFORMATION OF RIGHT BG ISCHEM EXAMS: CPT CODE: [id number] CT HEAD/BRAIN W/O CONT 04094 CT head without contrast 09/03/2019 HISTORY: Possible hemorrhagic transformation of basal ganglia stroke PROCEDURE: Multiple axial images from the skull base to the skull vertex were obtained without contrast. Coronal and sagittal reconstructed images were performed CT imaging performed at this location utilizes radiation dose optimization techniques which include one or more of the following: -Automated exposure control -Adjustment of the mA and/or kV according to patient size -Use of iterative reconstruction technique CT Radiation Dose DLP 1016.5 mGy-cm No prior exams are available for comparison FINDINGS: Subacute infarct involving the right basal ganglia is unchanged. There are curvilinear areas of hyperdensity in the right frontal lobe near the insular cortex and sylvian fissure. Since there is no blooming artifact on the MRI performed at same time, this most likely represents cortical laminar necrosis. There is no new infarct identified. No midline shift or hydrocephalus is noted. There are mild white matter hypodensities. The visualized mastoid air cells are clear. There is no paranasal sinus air-fluid level. IMPRESSION: 1. Evolution of subacute infarct in right MCA distribution with developing mild cortical laminar necrosis. 2. No acute intracranial hemorrhage. 3. Mild chronic microvascular ischemic changes. 4. No new infarct. SL: [id number] Electronically Signed by Shaista Sutherland on 0 09/03/2019 at 1119 Reported and signed by: Dayami Sutherland M.D. CC: Bao Hauser MD; Sven Ayers DO; Storm Woods MD Technologist:Pia Choudhary RT(R)(CT) CTDI: DLP: Trn scb Date/Time: 09/03/2019 (1119) [email or web address] Orig Print D/T : S: 09/03/2019 (5318) PAGE 1 Signed Report - MRI BRAIN W/O [id number] 11:10:00 FAX: Sven Wild DO [phone] [place]: St: ADM FAX: Anat Chan NP [phone] FAX: Storm Granda I --------- Name: MELVIN ROWE [facility] : 1965 Age/S: 54/M [address] [place] [address] Un it #: [id number] Loc: [place] [address] Phys: Anat Chan SERVICE OBSERVER Acct: [id number] Dis Date: Status: ADM IN ONE #: [phone] Exam Date: 09/03/2019 1013 FAX #: [phone] Reason: eval degree of icb EXAMS: CPT CODE: [id number] MR I BRAIN W/O CONT 87342 MRI brain with out contrast 09/03/2019 HISTORY: Right MCA infarct. IN OCEDURE: Multiplanar multisequence imaging of the brain is performed witho ut contrast Comparison is made to CT performed 09/02/2019 FINDINGS: Subacute infarct involving the right basal ganglia, right co anurag radiata, and right frontal lobe is unchanged. There is no acute intr acranial hemorrhage, midline shift, extra-axial fluid collection, or hydro cephalus. Craniocervical junction and corpus callosum are within normal l imits. Mild left mastoid fluid is noted. Right mastoid air cells are betina ar. There is no paranasal sinus air-fluid level. The expected intracrani al flow voids are present. IMPRESSION: 1. Evolution of subacute right MCA distribution infarct. 2. No acute intracranial hemor rhage. SL: [id number] Electronically Si gned by Shaista Sutherland on 09/03/2019 at 1110 Reported and signed by: Martir Sutherland M.D. CC: Sven Ayers DO; Anat Chan SERVICE OBSERVER; Storm rodriguez MD Technologist: Loyd German, RT(R)(CT)(MR) Trnscrd Waqas e/Time/By: 09/03/2019 (1110) : By: GuilhermeBJM4 Orig Print D/T: S: 2019 (1113) PAGE 1 Signed Report [id number] 10:46:00* Test Item Value Reference Range Interpretation Comments GLUBED (test code = GLUBED) 82 MG/DL 70-110 N Performed by certified well flow operator at [facility] COMPREHENSIVE METABOLIC [id number] 08:21:00* Test Item Value Reference Range Interpretation Comments SODIUM (test code = NA) 140 mEq/L 134-147 N POTASSIUM (test code = K) 3.9 mEq/L 3.4-5.0 N CHLORIDE (test code = CL) 105 mEq/L 100-108 N CARBON DIOXIDE (test code = CO2) 27 mEq/L 21-33 N ANION GAP (test code = GAP) 12 0-20 N GLUCOSE (test code = GLU) 63 mg/dL 70-110 L BLOOD UREA NITROGEN (test code = BUN) 16 mg/dL 7-18 N GLOMERULAR FILTRATION RATE (test code = GFR) 78.5 90-95 L Units of measure = ml/min/1.73 m2 CREATININE (test code = CREAT) 1.0 mg/dL 0.6-1.3 N TOTAL PROTEIN (test code = PROT) 7.6 g/dL 6.4-8.2 N ALBUMIN (test code = ALB) 3.00 g/dL 3.4-5.0 L CALCIUM (test code = CA) 9.0 mg/dL 8.0-10.5 N BILIRUBIN TOTAL (test code = BILT) 0.6 MG/DL <1.5 N SGOT/AST (test code = AST) 33 IUnit/L 15-37 N SGPT/ALT (test code = ALT) 45 IUnit/L 15-65 N ALKALINE PHOSPHATASE TOTAL (test code = ALKP) 134 IUnit/L 20-125 H CBC W/AUTO [id number] 07:50:00* Test Item Value Reference Range Interpretation Comments WHITE BLOOD CELL (test code = WBC) 9.44 x10 3/uL 4.5-11.0 N RED BLOOD CELL (test code = RBC) 5.44 x10 6/uL 4.00-5.60 N HEMOGLOBIN (test code = HGB) 17.7 g/dL 12.5-16.9 H HEMATOCRIT (test code = HCT) 54.1 % 37.5-50.7 H MEAN CELL VOLUME (test code = MCV) 99.4 fL 81.0-99.0 H MEAN CELL HGB (test code = MCH) 32.5 pg 27.0-33.0 N MEAN CELL HGB CONCETRATION (test code = MCHC) 32.7 g/dL 33.0-37. 0 L RED CELL DISTRIBUTION WIDTH CV (test code = RDW) 13.1 % 11.5- 14.5 N RED CELL DISTRIBUTION WIDTH SD (test code = RDW-SD) 47.9 fL 37 .0-54.0 N PLATELET COUNT (test code = PLT) 363 x10 3/uL 150-400 N MEAN PLATELET VOLUME (test code = MPV) 10.0 fL 7.0-9.0 H NEUTROPHIL % (test code = NT%) 54.9 % 56.0-77.0 L IMMATURE GRANULOCYTE % (test code = IG%) 0.5 % 0.0-2.0 N LYMPHOCYTE % (test code = LY%) 25.3 % 14.0-32.0 N MONOCYTE % (test code = MO%) 14.8 % 4.8-9.0 H EOSINOPHIL % (test code = EO%) 4.0 % 0.3-3.7 H BASOPHIL % (test code = BA%) 0.5 % 0.0-2.0 N NUCLEATED RBC % (test code = NRBC%) 0.0 % 0-0 N NEUTROPHIL # (test code = NT#) 5.17 x10 3/uL 2.0-7.6 N IMMATURE GRANULOCYTE # (test code = IG#) 0.05 x10 3/uL 0.00-0.03 H LYMPHOCYTE # (test code = LY#) 2.39 x10 3/uL 1.0-3.8 N MONOCYTE # (test code = MO#) 1.40 x10 3/uL 0.1-0.8 H EOSINOPHIL # (test code = EO#) 0.38 x10 3/uL 0.0-0.2 H BASOPHIL # (test code = BA#) 0.05 x10 3/uL 0.0-0.2 N NUCLEATED RBC # (test code = NRBC#) 0.00 x10 3/uL 0.0-0.1 N MANUAL DIFF REQUIRED (test code = MDIFF) NO [id number] 00:13:00* Test Item Value Reference Range Interpretation Comments GLUBED (test code = GLUBED) 84 MG/DL 70-110 N Performed by certified well flow operator at [facility] - CT HEAD/BRAIN W/O [id number] 19:26:00 Name: MELVIN ROWE [place] : 1965 Age/S: 54 / M [address] [place] [address] Unit #: [id number] Loc: [place] [address] Phys: Anat Chan NP Acct: [id number] Dis Date: Status: ADM IN PHONE #: [phone] Exam Date: 09/02/2019 1858 FAX #: [phone] Reason: slurred speech EXAMS: CPT CODE: [id number] CT HEAD/BRAIN W/O CONT 27347 Clinical Indication: Slurred speech. Comparison: Prior CT brain study dated 09/01/2019. TECHNIQUE: CT images were obtained from the foramen magnum to the vertex without the use of intravenous contrast on a multidetector CT. Coronal and sagittal reconstructions were obtained. CT imaging performed at this location utilizes radiation dose optimization techniques which include one or more of the following: -Automated exposure control -Adjustment of the mA and/or kV according to patient size -Use of iterative reconstruction technique CT Radiation Dose DLP 964.8 mGy-cm FINDINGS: BRAIN PARENCHYMA: Evolving recent infarct in the right frontotemporal lobe as well as right insula and right basal ganglia. Subtle linear hyperdensity along the right anterior temporal convexity concerning for hemorrhagic transformation within. Unchanged mass effect. No midline shift. No large acute intraparenchymal hemorrhage, extra-axial collection or hydrocephalus. ORBITS, MASTOIDS AND PARANASAL SINUSES: The visualized orbits and paranasal sinuses are unremarkable. The mastoid air cells are clear. SKULL: There are no osseous abnormalities. If there is further concern for intracranial pathology or acute stroke, MRI of the brain may be performed for complete assessment. IMPRESSION: Evolving recent infarct in the right frontote mporal lobe, right insula and right basal ganglia with questionable focu s of hemorrhagic transformation in the right anterior temporal lobe. Fu rther evaluation with MRI brain would be of value. Rambo dominguez were called to Anat Chan NP on 09/02/2019 at 7:20 PM via tele phone. SL: APATIL-H PAGE 1 Sign ed Report (CONTINUED) Name: MELVIN ROWE : 1965 Age/S: 54 / M [address] [place] [address] Unit #: [id number] Loc: [place] [address] Phys: Anat Chan NP Acct: [id number] Dis Date: Status: ADM IN PHONE #: [phone] Exam Date: 09/02/2019 1858 FAX #: [phone] Reason: slurred speech EXAMS: CPT CODE: [id number] CT HEAD/BRAIN W/O CONT 14685 <Continued> at 1926 Reported and signed by: Gena Borja M.D. CC: Sven Ayers DO; Anat Chan NP; Storm Woods MD Technologist:RT Vira(R) CTDI: DLP: Trnscb Date/Time: 09/02/2019 (1925) [email or web address] Orig Print D/T: S: 09/02/2019 (1929) PAGE 2 Signed Report - XR CHEST 1 [id number] 15:29:00 FAX: Sven Wild DO [phone] [place]: St: ADM FAX: Anat Chan NP [phone] FAX: Storm Granda I [phone] Name: MELVIN ROWE [facility] : 1965 Age/S: 54/M [address] [place] [address] Unit #: [id number] Loc: [address] [place] [address] Phys: Anat Chan NP Acct: [id number] Dis Date: Status: ADM IN PH ONE #: [phone] Exam Date: 09/02/2019 1456 FAX #: [phone] Reason: aspiration pna EXAMS: CPT CODE: [id number] XR CHEST 1 V 63247 Single view ch est: HISTORY: Aspiration pneumonia. FINDINGS: Develo pment of minimal infiltrate in the left lung base compared with 08/25/2019. This could be early pneumonia or atelectasis. The right lung is clear. The heart and mediastinal contours are stable. IMPRESSION: M inimal left basilar infiltrate SL: [id number] at 15 29 Reported and signed by: Carroll Bright M.D. CC: Sven Ayers DO; Anat Chan SERVICE OBSERVER; Storm Woods MD Technolo gist: Chelsie Montiel, RT(R), RTT Trnscrd Date/Time/B y: 09/02/2019 (1529) : By: Tam Orig Print D/T: S: 09/02/2019 (15 32) PAGE 1 Signed Report [id number] 12:19:00* Test Item Value Reference Range Interpretation Comments GLUBED (test code = GLUBED) 97 MG/DL 70-110 N Performed by certified well flow operator at [facility] [id number] 09:11:00* Test Item Value Reference Range Interpretation Comments GLUBED (test code = GLUBED) 102 MG/DL 70-110 N Performed by certified well flow operator at [facility] - CT HEAD/BRAIN W/O [id number] 20:43:00 Name: MELVIN [facility] : 1965 Age/S: 54 / M [address] [place] [address] Bl Unit #: [id number] Loc: [place] [address] Phys: Anat Chan NP Acct: [id number] Dis Date: Status: ADM IN PHONE #: [phone] Exam Date: 09/01/20192023 FAX #: [phone] Reason: INCREASED SLURRED SPEECH EXAMS: CPT CODE: [id number] CT HEAD/BRAIN W/O CONT [id number] Clinical Indication: Increased slurred speech.; Comparison: Prior CT brain study dated 08/24/2019 TECHNIQUE: CT images were obtained from the foramen magnum to the vertex without the use of intravenous contrast on a multidetector CT. Coronal and sagittal reconstructions were obtained. 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 No midline shift. No hemorrhagic transformation. There are no intra-axial or extra-axial fluid collections, intraventricular or intraparenchymal hemorrhage. The pineal, sellar, brainstem, cerebellum and skull base regions appear unremarkable. VENTRICLES: The lateral ventricles, third and fourth ventricles appear unremarkable. The basilar cisterns are normal. ORBITS, MASTOIDS AND PARANASAL SINUSES: The visualized orbits and paranasal sinuses are unremarkable. The mastoid air cells are clear. SKULL: There are no osseous abnormalities. If there is further concern for intracranial pathology or acute stroke, MRI of the brain may be performed for complete assessment. IMPRESSION: Evolving recent infarct in the right insula and r ight ganglio- capsular region in the right middle cerebral artery territ ory distribution. No hemorrhagic transformation or midline shift. If there is further concern for intracranial pathology or acute stroke, MRI of the brain may be performed for complete assessment. SL: TOM-Porsche PAGE 1 Signed Report (CONTINUED) Name: MELVIN ROWE [facility] : 1965 Age/S: 54 / M [address] [place] [address] Unit #: [id number] Loc: [place] [address] Phys: Anat Chan SERVICE OBSERVER Acct: [id number] Dis Date: Status: ADM IN PHONE #: [phone] Exam Date: 09/01/20192023 FAX #: [phone] Reason: INCREASED SLURRED SPEECH EXAMS: CPT CODE: [id number] CT HEAD/BRAIN W/O CONT [id number] < Continued> at 2043 Reported and signed by: Gena Borja M.D. CC: Sven Ayers DO; Anat Chan SERVICE OBSERVER; Storm Woods MD Technologist:Neyda Macias, RT(R)(CT) CTDI: DLP: Trnscb Date/Time: 09/01/2019 (2042) [email or web address] Orig Print D/T: S: 09/01/2019 (2045) PAGE 2 Signed Report ANTIPHOSPHATIDYL SERINE [id number] 07:14:00* Test Item Value Reference Range Interpretation Comments APS ABS IGG (test code = APSIGG) 2 GPS IgG 0-11 Performed At: [facility] [id number] Sanjai MD Ph:[phone] APS ABS IGM (test code = APSIGM) 9 MPS IgM 0-25 APS ABS IGA (test code = APSIGA) 2 APS IgA 0-20 [id number] 16:18:00* Test Item Value Reference Range Interpretation Comments GLUBED (test code = GLUBED) 88 MG/DL 70-110 N Performed by certified well flow operator at [facility] [id number] 11:54:00* Test Item Value Reference Range Interpretation Comments GLUBED (test code = GLUBED) 99 MG/DL 70-110 N Performed by certified well flow operator at [facility] ARTERIAL THROMBOPHILIA [id number] 09:52:00* Test Item Value Reference Range Interpretation Comments PROTHROMBIN 3 UNTRANSLATED (test code = [id number]) NO MUTATION DETECT ED () PROTHROMBIN (FACTOR II (H58761P) MUTATION INTERPRETATION:This individual is negative (normal) for the [id number] in the Prothrombin/Factor II gene. Increased riskof thrombophilia can be caused by a variety of genetic andnon- genetic factors not screened for this assay. Laboratory testing supervised and results monitored byDebo Willoughby M.D. MUTATION ANALYSIS:The [id number] mutation in the Prothrombin/FactorII gene is thesecond most common inherited risk factor for thrombosisoccuring in approximately 2% of Caucasions. Presence of themutation is associated with an elevation of prothrombinlevels to about 30% above normal in heterozygotes and to 70%above normal in homozygotes. The Prothrombin/Factor II isperformed on an automated system and integrates samplepurification, nucleic acid amplification, and detection ofthe target sequence in whole blood using real-time polymerase chain reaction (PCR) assays. Although rare. falsepositive or false negative results may occur. All resultsshould be interpreted in the context of clinical findings,relevant history, and other laboratory data. [facility] is certifiedunder the Clinical Laboratory Improvement Amendment (CLIA)as qualified to perform high complexity testing. PROTHROMBIN TIME PATIENT (test code = PTP) 11.7 SECONDS 9.3-12.9 N INTERNATIONAL NORMAL RATIO (test code = INR) 1.1 0.8-1.2 N TARGET INR BY INDICATION Indication INR1. Prophylaxis of venous thrombosis 2.0 - 3.0 (orthopedic surgery), Prophylaxis of venous thrombosis (other than high-risk surgery), Treatment of Deep Vein Thrombosis/Pulmonary Embolism, Prevention of systemic embolism - Tissue heart valves, Acute Myocardial Infarction (to prevent systemic embolism), Valvular heart disease, Atrial Fibrillation, Bileaflet mechanical valve in aortic position.2. Mechanical prosthetic valves (high risk), 2.5 - 3.5 Presence of Lupus Anticoagulant or Antiphospholipid Antibodies, Prevention of systemic embolism - Acute Myocardial Infarction (to prevent recurrent infarct). THROMBOPLASTIN TIME PARTIAL (test code = PTT) 26.2 Seconds 25.0-39. 5 N Therapeutic Range: 50.4 - 88.3 Seconds Effective 06/10/2018 PTT 1:1 MIX SERVICE OBSERVER (test code = PTTMIX2) TEST NOT PERFORMED SECONDS () PTT 1:3 MIX (test code = PTTMIX3) TEST NOT PERFORMED SECONDS () PT 1:2 MIX (test code = PTMIX2) TEST NOT PERFORMED SECONDS () Mixing study not indicated due to normal PT and PTT. RVVT PATIENT (test code = RVVTPAT) 0.9 RATIO 0.0-1.3 ACTIVATED PROT C RESISTANCE (test code = APC) 2.73 RATIO 2.31-5.0 0 Ratios > or = to 2.31 are considered negative for the FactorV Leiden. SILICA CLOTTING TIME (test code = SILCLOT) 0.94 <1.18 PT 12.9 sec (10.5- 13.4)PTT 28 sec (25-37) A Lupus Anticoagulant is NOT DETECTED. This interpretationis based on the test results. PROTEIN S FREE (test code = PROTSFR) 100 % 68-126 Protein S deficiency may be acquired due to recentthrombosis, oral anticoagulant therapy, , oralcontraceptives or hormone replacement therapy, liverdysfunction, recent surgery, DIC, and vitamin K deficiency.Hereditary deficiency of Protein S show decreased levels butare rare. Elevated Protein S levels are not clinicallysignificant. Only decreased levels are associated with anincreased thrombotic risk. LIZET IGG (test code = ACAG) 2.3 GPL <=15 LIZET IGA (test code = ACAA) 2.1 APL <=12 LIZET IGM (test code = ACAM) 7.5 MPL <=12.5 T he Antiphospholipid Syndrome (APS) is a clinical pathologiccondition that includes a clinical event (vascularthrombosis, mortality, thrombocytopenia, etc.) andpersistent positivity of antiphospholipid antibodies (IgG orIgM LIZET>40 GPL/MPL, IgG or IgM anti-B2GPI antibodies, or thepresence of a Lupus Anticoagulant). The InternationalConsensus guidelines suggest that these isotypes must bepresent on two or more occasions and at least 12 weeks apartto confirm antibody persistence. Although the IgA isotypehas been implicated in thrombotic events, these isotypeshave not yet been included into the APS criteria. MPME-4-AFAZU I IGM (test code = GPIIGM) 3.8 SMU 0.0-20.0 PHRB-3-VYQYJ I IGG (test code = GPIIGG) 3.1 SGU 0.0-20.0 ZHPS-7-AZKPG I IGA (test code = GPIIGA) 1.4 LUIS 0.0-20.0 The Antiphospholipid Syndrome (APS) is a clinical pathologiccondition that includes a clinical event (vascularthrombosis, mortality, thrombocytopenia, etc.) andpersistent positivity of antiphospholipid antibodies (IgG orIgM LIZET>40 GPL/MPL, IgG or IgM anti-B2GPI antibodies, or thepresence of a Lupus Anticoagulant). The InternationalConsensus guidelines suggest that these isotypes must bepresent on two or more occasions and at least 12 weeks apartto confirm antibody persistence. Although the IgA isotypehas been implicated in thrombotic events, these isotypeshave not yet been included into the APS criteria. HOMOCYSTEINE (test code = HOMOCY) 10.2 umol/L 3.2-10.7 N [id number] 09:52:00* Test Item Value Reference Range Interpretation Comments FIBRINOGEN (test code = FIB) 368 MG/DL 160-450 N Excess administration of anticoagulants and/or FibrinDegradation Products may affect Fibrinogen value. FACTOR [id number] 09:52:00* Test Item Value Reference Range Interpretation Comments FACTOR VII (test code = FAC7) 86 % 60-140 ANTITHROMBIN III (ATIII)2019-08-31 09:52:00* Test Item Value Reference Range Interpretation Comments ANTITHROMBIN III (ATIII) (test code = AT3) 114 % 83-128 Acquired antithrombin deficiency may occur with renalfailure associated with proteinuria nephrotic syndrome,liver failure or cirrhosis or an immature liver secondary topremature , accelerated consumption due to severeinjury, DIC, or recent thrombosis, and heparin therapy.Hereditary deficiency of antithrombin show decreased levelsbut are rare. Elevated antithrombin levels are notclinicallt significant. PROTEIN C [id number] 09:52:00* Test Item Value Reference Range Interpretation Comments PROTEIN C FUNCTIONAL (test code = PROTCFN) 87 % 70-140 Protein C deficiency may be acquired due to recentthrombosis, oral anticoagulant therapy, hepatic disorders,post-surgery, DIC, and vitamin K deficiency. Hereditarydeficiency show decreased levels but are rare. ElevatedProtein C levels are not clinically significant. Only decreased levels are associated with increased thromboticrisk. However, oral anti-Xa or anti-thrombin medications maycause falsely increased levels of Protein C. PROTEIN C [id number] 09:52:00* Test Item Value Reference Range Interpretation Comments PROTEIN C ANTIGENIC (test code = PROTCAG) 89 % 70-140 Decreased levels of Protein C Antigen may be found incongenital deficiency, treatment with oral anticoagulants,liver disease, D.I.C. and post surgery. Performed by: [facility] [place] [address] PROTEIN S [id number] 09:52:00* Test Item Value Reference Range Interpretation Comments PROTEIN S FUNC (test code = PROTSFN) 128 % 74-148 Protein S deficiency may be acquired due to recentthrombosis, oral anticoagulant therapy, , oralcontraceptives or hormone replacement therapy, liverdysfunction, recent surgery, DIC, and vitamin K deficiency.Hereditary deficiency of Protein S show decreased levels butare rare. Elevated Protein S levels are not clinicallysignificant. Only decreased levels are associated with anincreased thrombotic risk. [id number] 20:46:00* Test Item Value Reference Range Interpretation Comments GLUBED (test code = GLUBED) 97 MG/DL 70-110 N Performed by certified well flow operator at [facility] [id number] 13:23:00* Test Item Value Reference Range Interpretation Comments GLUBED (test code = GLUBED) 83 MG/DL 70-110 N Performed by certified well flow operator at [facility] BASIC METABOLIC [id number] 08:58:00* Test Item Value Reference Range Interpretation Comments SODIUM (test code = NA) 139 mEq/L 134-147 N POTASSIUM (test code = K) 3.6 mEq/L 3.4-5.0 N CHLORIDE (test code = CL) 106 mEq/L 100-108 N CARBON DIOXIDE (test code = CO2) 26 mEq/L 21-33 ANION GAP (test code = GAP) 11 0-20 N GLUCOSE (test code = GLU) 67 mg/dL 70-110 L BLOOD UREA NITROGEN (test code = BUN) 17 mg/dL 7-18 N GLOMERULAR FILTRATION RATE (test code = GFR) 78.5 90-95 L Units of measure = ml/min/1.73 m2 CREATININE (test code = CREAT) 1.0 mg/dL 0.6-1.3 N CALCIUM (test code = CA) 8.3 mg/dL 8.0-10.5 N CBC W/AUTO [id number] 08:54:00* Test Item Value Reference Range Interpretation Comments WHITE BLOOD CELL (test code = WBC) 7.40 x10 3/uL 4.5-11.0 N RED BLOOD CELL (test code = RBC) 4.90 x10 6/uL 4.00-5.60 N HEMOGLOBIN (test code = HGB) 16.0 g/dL 12.5-16.9 N HEMATOCRIT (test code = HCT) 49.0 % 37.5-50.7 N MEAN CELL VOLUME (test code = MCV) 100.0 fL 81.0-99.0 H MEAN CELL HGB (test code = MCH) 32.7 pg 27.0-33.0 N MEAN CELL HGB CONCETRATION (test code = MCHC) 32.7 g/dL 33.0-37. 0 L RED CELL DISTRIBUTION WIDTH CV (test code = RDW) 13.2 % 11.5- 14.5 N RED CELL DISTRIBUTION WIDTH SD (test code = RDW-SD) 49.4 fL 37 .0-54.0 N PLATELET COUNT (test code = PLT) 326 x10 3/uL 150-400 N MEAN PLATELET VOLUME (test code = MPV) 9.8 fL 7.0-9.0 H NEUTROPHIL % (test code = NT%) 48.1 % 56.0-77.0 L IMMATURE GRANULOCYTE % (test code = IG%) 0.9 % 0.0-2.0 N LYMPHOCYTE % (test code = LY%) 31.4 % 14.0-32.0 N MONOCYTE % (test code = MO%) 14.1 % 4.8-9.0 H EOSINOPHIL % (test code = EO%) 5.0 % 0.3-3.7 H BASOPHIL % (test code = BA%) 0.5 % 0.0-2.0 N NUCLEATED RBC % (test code = NRBC%) 0.0 % 0-0 N NEUTROPHIL # (test code = NT#) 3.56 x10 3/uL 2.0-7.6 N IMMATURE GRANULOCYTE # (test code = IG#) 0.07 x10 3/uL 0.00-0.03 H LYMPHOCYTE # (test code = LY#) 2.32 x10 3/uL 1.0-3.8 N MONOCYTE # (test code = MO#) 1.04 x10 3/uL 0.1-0.8 H EOSINOPHIL # (test code = EO#) 0.37 x10 3/uL 0.0-0.2 H BASOPHIL # (test code = BA#) 0.04 x10 3/uL 0.0-0.2 N NUCLEATED RBC # (test code = NRBC#) 0.00 x10 3/uL 0.0-0.1 N MANUAL DIFF REQUIRED (test code = MDIFF) NO COMMENTS: DAILYARTERIAL THROMBOPHILIA [id number] 14:22:00* Test Item Value Reference Range Interpretation Comments PROTHROMBIN 3 UNTRANSLATED (test code = [id number]) NO MUTATION DETECT ED () PROTHROMBIN (FACTOR II (V18032P) MUTATION INTERPRETATION:This individual is negative (normal) for the [id number] in the Prothrombin/Factor II gene. Increased riskof thrombophilia can be caused by a variety of genetic andnon- genetic factors not screened for this assay. Laboratory testing supervised and results monitored byDebo Willoughby M.D. MUTATION ANALYSIS:The [id number] mutation in the Prothrombin/FactorII gene is thesecond most common inherited risk factor for thrombosisoccuring in approximately 2% of Caucasions. Presence of themutation is associated with an elevation of prothrombinlevels to about 30% above normal in heterozygotes and to 70%above normal in homozygotes. The Prothrombin/Factor II isperformed on an automated system and integrates samplepurification, nucleic acid amplification, and detection ofthe target sequence in whole blood using real-time polymerase chain reaction (PCR) assays. Although rare. falsepositive or false negative results may occur. All resultsshould be interpreted in the context of clinical findings,relevant history, and other laboratory data. [facility] is certifiedunder the Clinical Laboratory Improvement Amendment (CLIA)as qualified to perform high complexity testing. PROTHROMBIN TIME PATIENT (test code = PTP) 11.7 SECONDS 9.3-12.9 N INTERNATIONAL NORMAL RATIO (test code = INR) 1.1 0.8-1.2 N TARGET INR BY INDICATION Indication INR1. Prophylaxis of venous thrombosis 2.0 - 3.0 (orthopedic surgery), Prophylaxis of venous thrombosis (other than high-risk surgery), Treatment of Deep Vein Thrombosis/Pulmonary Embolism, Prevention of systemic embolism - Tissue heart valves, Acute Myocardial Infarction (to prevent systemic embolism), Valvular heart disease, Atrial Fibrillation, Bileaflet mechanical valve in aortic position.2. Mechanical prosthetic valves (high risk), 2.5 - 3.5 Presence of Lupus Anticoagulant or Antiphospholipid Antibodies, Prevention of systemic embolism - Acute Myocardial Infarction (to prevent recurrent infarct). THROMBOPLASTIN TIME PARTIAL (test code = PTT) 26.2 Seconds 25.0-39. 5 N Therapeutic Range: 50.4 - 88.3 Seconds Effective 06/10/2018 PTT 1:1 MIX SERVICE OBSERVER (test code = PTTMIX2) TEST NOT PERFORMED SECONDS () PTT 1:3 MIX (test code = PTTMIX3) TEST NOT PERFORMED SECONDS () PT 1:2 MIX (test code = PTMIX2) TEST NOT PERFORMED SECONDS () Mixing study not indicated due to normal PT and PTT. RVVT PATIENT (test code = RVVTPAT) 0.9 RATIO 0.0-1.3 ACTIVATED PROT C RESISTANCE (test code = APC) 2.73 RATIO 2.31-5.0 0 Ratios > or = to 2.31 are considered negative for the FactorV Leiden. SILICA CLOTTING TIME (test code = SILCLOT) 0.94 <1.18 PT 12.9 sec (10.5- 13.4)PTT 28 sec (25-37) A Lupus Anticoagulant is NOT DETECTED. This interpretationis based on the test results. PROTEIN S FREE (test code = PROTSFR) 100 % 68-126 Protein S deficiency may be acquired due to recentthrombosis, oral anticoagulant therapy, , oralcontraceptives or hormone replacement therapy, liverdysfunction, recent surgery, DIC, and vitamin K deficiency.Hereditary deficiency of Protein S show decreased levels butare rare. Elevated Protein S levels are not clinicallysignificant. Only decreased levels are associated with anincreased thrombotic risk. LIZET IGG (test code = ACAG) 2.3 GPL <=15 LIZET IGA (test code = ACAA) 2.1 APL <=12 LIZET IGM (test code = ACAM) 7.5 MPL <=12.5 T he Antiphospholipid Syndrome (APS) is a clinical pathologiccondition that includes a clinical event (vascularthrombosis, mortality, thrombocytopenia, etc.) andpersistent positivity of antiphospholipid antibodies (IgG orIgM LIZTE>40 GPL/MPL, IgG or IgM anti-B2GPI antibodies, or thepresence of a Lupus Anticoagulant). The InternationalConsensus guidelines suggest that these isotypes must bepresent on two or more occasions and at least 12 weeks apartto confirm antibody persistence. Although the IgA isotypehas been implicated in thrombotic events, these isotypeshave not yet been included into the APS criteria. JQYX-3-UQDVB I IGM (test code = GPIIGM) 3.8 SMU 0.0-20.0 UVKZ-0-IIUDQ I IGG (test code = GPIIGG) 3.1 SGU 0.0-20.0 XQSD-3-ZJCTW I IGA (test code = GPIIGA) 1.4 LUIS 0.0-20.0 The Antiphospholipid Syndrome (APS) is a clinical pathologiccondition that includes a clinical event (vascularthrombosis, mortality, thrombocytopenia, etc.) andpersistent positivity of antiphospholipid antibodies (IgG orIgM LIZET>40 GPL/MPL, IgG or IgM anti-B2GPI antibodies, or thepresence of a Lupus Anticoagulant). The InternationalConsensus guidelines suggest that these isotypes must bepresent on two or more occasions and at least 12 weeks apartto confirm antibody persistence. Although the IgA isotypehas been implicated in thrombotic events, these isotypeshave not yet been included into the APS criteria. HOMOCYSTEINE (test code = HOMOCY) 10.2 umol/L 3.2-10.7 N [id number] 14:22:00* Test Item Value Reference Range Interpretation Comments FIBRINOGEN (test code = FIB) 368 MG/DL 160-450 N Excess administration of anticoagulants and/or FibrinDegradation Products may affect Fibrinogen value. FACTOR [id number] 14:22:00* Test Item Value Reference Range Interpretation Comments FACTOR VII (test code = FAC7) 86 % 60-140 ANTITHROMBIN III (ATIII)2019-08-29 14:22:00* Test Item Value Reference Range Interpretation Comments ANTITHROMBIN III (ATIII) (test code = AT3) 114 % 83-128 Acquired antithrombin deficiency may occur with renalfailure associated with proteinuria nephrotic syndrome,liver failure or cirrhosis or an immature liver secondary topremature , accelerated consumption due to severeinjury, DIC, or recent thrombosis, and heparin therapy.Hereditary deficiency of antithrombin show decreased levelsbut are rare. Elevated antithrombin levels are notclinicallt significant. PROTEIN C [id number] 14:22:00* Test Item Value Reference Range Interpretation Comments PROTEIN C FUNCTIONAL (test code = PROTCFN) 87 % 70-140 Protein C deficiency may be acquired due to recentthrombosis, oral anticoagulant therapy, hepatic disorders,post-surgery, DIC, and vitamin K deficiency. Hereditarydeficiency show decreased levels but are rare. ElevatedProtein C levels are not clinically significant. Only decreased levels are associated with increased thromboticrisk. However, oral anti-Xa or anti-thrombin medications maycause falsely increased levels of Protein C. PROTEIN C [id number] 14:22:00* Test Item Value Reference Range Interpretation Comments PROTEIN C ANTIGENIC (test code = PROTCAG) PROTEIN S [id number] 14:22:00* Test Item Value Reference Range Interpretation Comments PROTEIN S FUNC (test code = PROTSFN) 128 % 74-148 Protein S deficiency may be acquired due to recentthrombosis, oral anticoagulant therapy, , oralcontraceptives or hormone replacement therapy, liverdysfunction, recent surgery, DIC, and vitamin K deficiency.Hereditary deficiency of Protein S show decreased levels butare rare. Elevated Protein S levels are not clinicallysignificant. Only decreased levels are associated with anincreased thrombotic risk. CBC W/AUTO [id number] 08:43:00* Test Item Value Reference Range Interpretation Comments WHITE BLOOD CELL (test code = WBC) 6.74 x10 3/uL 4.5-11.0 N RED BLOOD CELL (test code = RBC) 4.95 x10 6/uL 4.00-5.60 N HEMOGLOBIN (test code = HGB) 16.3 g/dL 12.5-16.9 N HEMATOCRIT (test code = HCT) 49.7 % 37.5-50.7 N MEAN CELL VOLUME (test code = MCV) 100.4 fL 81.0-99.0 H MEAN CELL HGB (test code = MCH) 32.9 pg 27.0-33.0 N MEAN CELL HGB CONCETRATION (test code = MCHC) 32.8 g/dL 33.0-37. 0 L RED CELL DISTRIBUTION WIDTH CV (test code = RDW) 13.6 % 11.5- 14.5 N RED CELL DISTRIBUTION WIDTH SD (test code = RDW-SD) 50.4 fL 37 .0-54.0 N PLATELET COUNT (test code = PLT) 281 x10 3/uL 150-400 N MEAN PLATELET VOLUME (test code = MPV) 9.8 fL 7.0-9.0 H NEUTROPHIL % (test code = NT%) 49.3 % 56.0-77.0 L IMMATURE GRANULOCYTE % (test code = IG%) 0.9 % 0.0-2.0 N LYMPHOCYTE % (test code = LY%) 30.7 % 14.0-32.0 N MONOCYTE % (test code = MO%) 12.3 % 4.8-9.0 H EOSINOPHIL % (test code = EO%) 5.8 % 0.3-3.7 H BASOPHIL % (test code = BA%) 1.0 % 0.0-2.0 N NUCLEATED RBC % (test code = NRBC%) 0.0 % 0-0 N NEUTROPHIL # (test code = NT#) 3.32 x10 3/uL 2.0-7.6 N IMMATURE GRANULOCYTE # (test code = IG#) 0.06 x10 3/uL 0.00-0.03 H LYMPHOCYTE # (test code = LY#) 2.07 x10 3/uL 1.0-3.8 N MONOCYTE # (test code = MO#) 0.83 x10 3/uL 0.1-0.8 H EOSINOPHIL # (test code = EO#) 0.39 x10 3/uL 0.0-0.2 H BASOPHIL # (test code = BA#) 0.07 x10 3/uL 0.0-0.2 N NUCLEATED RBC # (test code = NRBC#) 0.00 x10 3/uL 0.0-0.1 N MANUAL DIFF REQUIRED (test code = MDIFF) NO COMMENTS: DAILYBASIC METABOLIC [id number] 08:07:00* Test Item Value Reference Range Interpretation Comments SODIUM (test code = NA) 136 mEq/L 134-147 N POTASSIUM (test code = K) 4.0 mEq/L 3.4-5.0 N CHLORIDE (test code = CL) 107 mEq/L 100-108 N CARBON DIOXIDE (test code = CO2) 20 mEq/L 21-33 L ANION GAP (test code = GAP) 13 0-20 N GLUCOSE (test code = GLU) 73 mg/dL 70-110 N BLOOD UREA NITROGEN (test code = BUN) 14 mg/dL 7-18 N GLOMERULAR FILTRATION RATE (test code = GFR) 88.6 90-95 L Units of measure = ml/min/1.73 m2 CREATININE (test code = CREAT) 0.9 mg/dL 0.6-1.3 N CALCIUM (test code = CA) 8.1 mg/dL 8.0-10.5 N - XR SWLW FUNC W/C [id number] 11:15:00 FAX: Tran Garland NP [phone] [place]: St: ADM FAX: Sven Wild DO [phone] FAX: Storm Granda I [phone] Name: MELVIN ROWE [facility] : 1965 Age/S: 54/M [address] [place] [address] Unit #: [id number] Loc: [address] [address] Phys: Tran Garland NP Acct: [id number] Dis Date: Status: ADM IN ONE #: [phone] Exam Date: 08/28/2019 1037 FAX #: [phone] Reason: S/P CVA; COUGHING ON THIN LIQUIDS EXAMS: CPT CODE: [id number] XR SWLW FUNC W/C V [id number] Study: - XR S WLW FUNC W/C V 08/28/2019 8:23 AM Patient Name: MELVIN ROWE MR: [id number] : 1965; Age: 54 years y/o Male Ordering Physicia n: Tran Garland NP Clinical Indication: S/P CVA; COUGHING ON T HIN LIQUIDS Comparison: None Fluoroscopy time: 76 se conds Reference air kerma: 4.1 mGy FINDINGS: The patient received multiple consistencies of oral barium. No aspiration or laryngeal penetration was seen. Impression: No aspiration or laryngeal penetration. Please see the speech pathology report for further details. SL: [id number] at 1115 Reported and signed by: Darren Ochoa M.D. CC: Gavin Garland NP; Sven Ayers DO; Storm Woods MD Technologist: Debbie Alan RT(R) Trnscdejuan Date/Time/By: 08/28/2019 (01 09) : By: [email or web address] Orig Print D/T: S: 08/28/2019 (9633) PAGE 1 Signed Report ARTERIAL THROMBOPHILIA [id number] 11:14:00* Test Item Value Reference Range Interpretation Comments PROTHROMBIN 3 UNTRANSLATED (test code = [id number]) NO MUTATION DETECT ED () PROTHROMBIN (FACTOR II ([id number]) MUTATION INTERPRETATION:This individual is negative (normal) for the F31157Hitynpsus in the Prothrombin/Factor II gene. Increased riskof thrombophilia can be caused by a variety of genetic andnon- genetic factors not screened for this assay. Laboratory testing supervised and results monitored byDebo Willoughby M.D. MUTATION ANALYSIS:The [id number] mutation in the Prothrombin/FactorII gene is thesecond most common inherited risk factor for thrombosisoccuring in approximately 2% of Caucasions. Presence of themutation is associated with an elevation of prothrombinlevels to about 30% above normal in heterozygotes and to 70%above normal in homozygotes. The Prothrombin/Factor II isperformed on an automated system and integrates samplepurification, nucleic acid amplification, and detection ofthe target sequence in whole blood using real-time polymerase chain reaction (PCR) assays. Although rare. falsepositive or false negative results may occur. All resultsshould be interpreted in the context of clinical findings,relevant history, and other laboratory data. [facility] is certifiedunder the Clinical Laboratory Improvement Amendment (CLIA)as qualified to perform high complexity testing. PROTHROMBIN TIME PATIENT (test code = PTP) 11.7 SECONDS 9.3-12.9 N INTERNATIONAL NORMAL RATIO (test code = INR) 1.1 0.8-1.2 N TARGET INR BY INDICATION Indication INR1. Prophylaxis of venous thrombosis 2.0 - 3.0 (orthopedic surgery), Prophylaxis of venous thrombosis (other than high-risk surgery), Treatment of Deep Vein Thrombosis/Pulmonary Embolism, Prevention of systemic embolism - Tissue heart valves, Acute Myocardial Infarction (to prevent systemic embolism), Valvular heart disease, Atrial Fibrillation, Bileaflet mechanical valve in aortic position.2. Mechanical prosthetic valves (high risk), 2.5 - 3.5 Presence of Lupus Anticoagulant or Antiphospholipid Antibodies, Prevention of systemic embolism - Acute Myocardial Infarction (to prevent recurrent infarct). THROMBOPLASTIN TIME PARTIAL (test code = PTT) 26.2 Seconds 25.0-39. 5 N Therapeutic Range: 50.4 - 88.3 Seconds Effective 06/10/2018 PTT 1:1 MIX SERVICE OBSERVER (test code = PTTMIX2) SECONDS () PTT 1:3 MIX (test code = PTTMIX3) SECONDS () PT 1:2 MIX (test code = PTMIX2) SECONDS () Mixing study not indicated due to normal PT and PTT. RVVT PATIENT (test code = RVVTPAT) 0.9 RATIO 0.0-1.3 ACTIVATED PROT C RESISTANCE (test code = APC) 2.73 RATIO 2.31-5.0 0 Ratios > or = to 2.31 are considered negative for the FactorV Leiden. SILICA CLOTTING TIME (test code = SILCLOT) 0.94 <1.18 PT 12.9 sec (10.5- 13.4)PTT 28 sec (25-37) A Lupus Anticoagulant is NOT DETECTED. This interpretationis based on the test results. PROTEIN S FREE (test code = PROTSFR) 100 % 68-126 Protein S deficiency may be acquired due to recentthrombosis, oral anticoagulant therapy, , oralcontraceptives or hormone replacement therapy, liverdysfunction, recent surgery, DIC, and vitamin K deficiency.Hereditary deficiency of Protein S show decreased levels butare rare. Elevated Protein S levels are not clinicallysignificant. Only decreased levels are associated with anincreased thrombotic risk. LIZET IGG (test code = ACAG) 2.3 GPL <=15 LIZET IGA (test code = ACAA) 2.1 APL <=12 LIZET IGM (test code = ACAM) 7.5 MPL <=12.5 T he Antiphospholipid Syndrome (APS) is a clinical pathologiccondition that includes a clinical event (vascularthrombosis, mortality, thrombocytopenia, etc.) andpersistent positivity of antiphospholipid antibodies (IgG orIgM LIZET>40 GPL/MPL, IgG or IgM anti-B2GPI antibodies, or thepresence of a Lupus Anticoagulant). The InternationalConsensus guidelines suggest that these isotypes must bepresent on two or more occasions and at least 12 weeks apartto confirm antibody persistence. Although the IgA isotypehas been implicated in thrombotic events, these isotypeshave not yet been included into the APS criteria. NVMD-7-ZHPAM I IGM (test code = GPIIGM) SMU 0.0-20.0 YJHS-0-HQABB I IGG (test code = GPIIGG) SGU 0.0-20.0 TPTE-9-GDFBD I IGA (test code = GPIIGA) 1.4 LUIS 0.0-20.0 The Antiphospholipid Syndrome (APS) is a clinical pathologiccondition that includes a clinical event (vascularthrombosis, mortality, thrombocytopenia, etc.) andpersistent positivity of antiphospholipid antibodies (IgG orIgM LIZET>40 GPL/MPL, IgG or IgM anti-B2GPI antibodies, or thepresence of a Lupus Anticoagulant). The InternationalConsensus guidelines suggest that these isotypes must bepresent on two or more occasions and at least 12 weeks apartto confirm antibody persistence. Although the IgA isotypehas been implicated in thrombotic events, these isotypeshave not yet been included into the APS criteria. HOMOCYSTEINE (test code = HOMOCY) 10.2 umol/L 3.2-10.7 N [id number] 11:14:00* Test Item Value Reference Range Interpretation Comments FIBRINOGEN (test code = FIB) 368 MG/DL 160-450 N Excess administration of anticoagulants and/or FibrinDegradation Products may affect Fibrinogen value. FACTOR [id number] 11:14:00* Test Item Value Reference Range Interpretation Comments FACTOR VII (test code = FAC7) 86 % 60-140 ANTITHROMBIN III (ATIII)2019-08-28 11:14:00* Test Item Value Reference Range Interpretation Comments ANTITHROMBIN III (ATIII) (test code = AT3) 114 % 83-128 Acquired antithrombin deficiency may occur with renalfailure associated with proteinuria nephrotic syndrome,liver failure or cirrhosis or an immature liver secondary topremature , accelerated consumption due to severeinjury, DIC, or recent thrombosis, and heparin therapy.Hereditary deficiency of antithrombin show decreased levelsbut are rare. Elevated antithrombin levels are notclinicallt significant. PROTEIN C [id number] 11:14:00* Test Item Value Reference Range Interpretation Comments PROTEIN C FUNCTIONAL (test code = PROTCFN) 87 % 70-140 Protein C deficiency may be acquired due to recentthrombosis, oral anticoagulant therapy, hepatic disorders,post-surgery, DIC, and vitamin K deficiency. Hereditarydeficiency show decreased levels but are rare. ElevatedProtein C levels are not clinically significant. Only decreased levels are associated with increased thromboticrisk. However, oral anti-Xa or anti-thrombin medications maycause falsely increased levels of Protein C. PROTEIN C [id number] 11:14:00* Test Item Value Reference Range Interpretation Comments PROTEIN C ANTIGENIC (test code = PROTCAG) PROTEIN S [id number] 11:14:00* Test Item Value Reference Range Interpretation Comments PROTEIN S FUNC (test code = PROTSFN) 128 % 74-148 Protein S deficiency may be acquired due to recentthrombosis, oral anticoagulant therapy, , oralcontraceptives or hormone replacement therapy, liverdysfunction, recent surgery, DIC, and vitamin K deficiency.Hereditary deficiency of Protein S show decreased levels butare rare. Elevated Protein S levels are not clinicallysignificant. Only decreased levels are associated with anincreased thrombotic risk. ARTERIAL THROMBOPHILIA [id number] 10:26:00* Test Item Value Reference Range Interpretation Comments PROTHROMBIN 3 UNTRANSLATED (test code = MI7LLUY) NO MUTATION DETECT ED () PROTHROMBIN (FACTOR II ([id number]) MUTATION INTERPRETATION:This individual is negative (normal) for the F32612Vaxmfmcjg in the Prothrombin/Factor II gene. Increased riskof thrombophilia can be caused by a variety of genetic andnon- genetic factors not screened for this assay. Laboratory testing supervised and results monitored byDebo Willoughby M.D. MUTATION ANALYSIS:The U42910J mutation in the Prothrombin/FactorII gene is thesecond most common inherited risk factor for thrombosisoccuring in approximately 2% of Caucasions. Presence of themutation is associated with an elevation of prothrombinlevels to about 30% above normal in heterozygotes and to 70%above normal in homozygotes. The Prothrombin/Factor II isperformed on an automated system and integrates samplepurification, nucleic acid amplification, and detection ofthe target sequence in whole blood using real-time polymerase chain reaction (PCR) assays. Although rare. falsepositive or false negative results may occur. All resultsshould be interpreted in the context of clinical findings,relevant history, and other laboratory data. [facility] is certifiedunder the Clinical Laboratory Improvement Amendment (CLIA)as qualified to perform high complexity testing. PROTHROMBIN TIME PATIENT (test code = PTP) 11.7 SECONDS 9.3-12.9 N INTERNATIONAL NORMAL RATIO (test code = INR) 1.1 0.8-1.2 N TARGET INR BY INDICATION Indication INR1. Prophylaxis of venous thrombosis 2.0 - 3.0 (orthopedic surgery), Prophylaxis of venous thrombosis (other than high-risk surgery), Treatment of Deep Vein Thrombosis/Pulmonary Embolism, Prevention of systemic embolism - Tissue heart valves, Acute Myocardial Infarction (to prevent systemic embolism), Valvular heart disease, Atrial Fibrillation, Bileaflet mechanical valve in aortic position.2. Mechanical prosthetic valves (high risk), 2.5 - 3.5 Presence of Lupus Anticoagulant or Antiphospholipid Antibodies, Prevention of systemic embolism - Acute Myocardial Infarction (to prevent recurrent infarct). THROMBOPLASTIN TIME PARTIAL (test code = PTT) 26.2 Seconds 25.0-39. 5 N Therapeutic Range: 50.4 - 88.3 Seconds Effective 06/10/2018 PTT 1:1 MIX SERVICE OBSERVER (test code = PTTMIX2) SECONDS () PTT 1:3 MIX (test code = PTTMIX3) SECONDS () PT 1:2 MIX (test code = PTMIX2) SECONDS () Mixing study not indicated due to normal PT and PTT. RVVT PATIENT (test code = RVVTPAT) 0.9 RATIO 0.0-1.3 ACTIVATED PROT C RESISTANCE (test code = APC) 2.73 RATIO 2.31-5.0 0 Ratios > or = to 2.31 are considered negative for the FactorV Leiden. SILICA CLOTTING TIME (test code = SILCLOT) 0.94 <1.18 PT 12.9 sec (10.5- 13.4)PTT 28 sec (25-37) A Lupus Anticoagulant is NOT DETECTED. This interpretationis based on the test results. PROTEIN S FREE (test code = PROTSFR) 100 % 68-126 Protein S deficiency may be acquired due to recentthrombosis, oral anticoagulant therapy, , oralcontraceptives or hormone replacement therapy, liverdysfunction, recent surgery, DIC, and vitamin K deficiency.Hereditary deficiency of Protein S show decreased levels butare rare. Elevated Protein S levels are not clinicallysignificant. Only decreased levels are associated with anincreased thrombotic risk. LIZET IGG (test code = ACAG) LIZET IGA (test code = ACAA) LIZET IGM (test code = ACAM) QRSR-1-ELDYZ I IGM (test code = GPIIGM) SMU 0.0-20.0 HVXA-1-FDFMG I IGG (test code = GPIIGG) SGU 0.0-20.0 NFJK-6-DYOGF I IGA (test code = GPIIGA) 1.4 LUIS 0.0-20.0 The Antiphospholipid Syndrome (APS) is a clinical pathologiccondition that includes a clinical event (vascularthrombosis, mortality, thrombocytopenia, etc.) andpersistent positivity of antiphospholipid antibodies (IgG orIgM LIZET>40 GPL/MPL, IgG or IgM anti-B2GPI antibodies, or thepresence of a Lupus Anticoagulant). The InternationalConsensus guidelines suggest that these isotypes must bepresent on two or more occasions and at least 12 weeks apartto confirm antibody persistence. Although the IgA isotypehas been implicated in thrombotic events, these isotypeshave not yet been included into the APS criteria. HOMOCYSTEINE (test code = HOMOCY) 10.2 umol/L 3.2-10.7 N [id number] 10:26:00* Test Item Value Reference Range Interpretation Comments FIBRINOGEN (test code = FIB) 368 MG/DL 160-450 N Excess administration of anticoagulants and/or FibrinDegradation Products may affect Fibrinogen value. FACTOR [id number] 10:26:00* Test Item Value Reference Range Interpretation Comments FACTOR VII (test code = FAC7) 86 % 60-140 ANTITHROMBIN III (ATIII)2019-08-28 10:26:00* Test Item Value Reference Range Interpretation Comments ANTITHROMBIN III (ATIII) (test code = AT3) 114 % 83-128 Acquired antithrombin deficiency may occur with renalfailure associated with proteinuria nephrotic syndrome,liver failure or cirrhosis or an immature liver secondary topremature , accelerated consumption due to severeinjury, DIC, or recent thrombosis, and heparin therapy.Hereditary deficiency of antithrombin show decreased levelsbut are rare. Elevated antithrombin levels are notclinicallt significant. PROTEIN C [id number] 10:26:00* Test Item Value Reference Range Interpretation Comments PROTEIN C FUNCTIONAL (test code = PROTCFN) 87 % 70-140 Protein C deficiency may be acquired due to recentthrombosis, oral anticoagulant therapy, hepatic disorders,post-surgery, DIC, and vitamin K deficiency. Hereditarydeficiency show decreased levels but are rare. ElevatedProtein C levels are not clinically significant. Only decreased levels are associated with increased thromboticrisk. However, oral anti-Xa or anti-thrombin medications maycause falsely increased levels of Protein C. PROTEIN C [id number] 10:26:00* Test Item Value Reference Range Interpretation Comments PROTEIN C ANTIGENIC (test code = PROTCAG) PROTEIN S [id number] 10:26:00* Test Item Value Reference Range Interpretation Comments PROTEIN S FUNC (test code = PROTSFN) 128 % 74-148 Protein S deficiency may be acquired due to recentthrombosis, oral anticoagulant therapy, , oralcontraceptives or hormone replacement therapy, liverdysfunction, recent surgery, DIC, and vitamin K deficiency.Hereditary deficiency of Protein S show decreased levels butare rare. Elevated Protein S levels are not clinicallysignificant. Only decreased levels are associated with anincreased thrombotic risk. BASIC METABOLIC [id number] 07:43:00* Test Item Value Reference Range Interpretation Comments SODIUM (test code = NA) 136 mEq/L 134-147 N POTASSIUM (test code = K) 3.9 mEq/L 3.4-5.0 N CHLORIDE (test code = CL) 106 mEq/L 100-108 N CARBON DIOXIDE (test code = CO2) 23 mEq/L 21-33 N ANION GAP (test code = GAP) 11 0-20 N GLUCOSE (test code = GLU) 75 mg/dL 70-110 N BLOOD UREA NITROGEN (test code = BUN) 14 mg/dL 7-18 N GLOMERULAR FILTRATION RATE (test code = GFR) 78.5 90-95 L Units of measure = ml/min/1.73 m2 CREATININE (test code = CREAT) 1.0 mg/dL 0.6-1.3 N CALCIUM (test code = CA) 8.2 mg/dL 8.0-10.5 N CBC W/AUTO [id number] 07:10:00* Test Item Value Reference Range Interpretation Comments WHITE BLOOD CELL (test code = WBC) 7.91 x10 3/uL 4.5-11.0 N RED BLOOD CELL (test code = RBC) 4.80 x10 6/uL 4.00-5.60 N HEMOGLOBIN (test code = HGB) 15.4 g/dL 12.5-16.9 N HEMATOCRIT (test code = HCT) 47.2 % 37.5-50.7 N MEAN CELL VOLUME (test code = MCV) 98.3 fL 81.0-99.0 N MEAN CELL HGB (test code = MCH) 32.1 pg 27.0-33.0 N MEAN CELL HGB CONCETRATION (test code = MCHC) 32.6 g/dL 33.0-37. 0 L RED CELL DISTRIBUTION WIDTH CV (test code = RDW) 13.6 % 11.5- 14.5 N RED CELL DISTRIBUTION WIDTH SD (test code = RDW-SD) 50.1 fL 37 .0-54.0 N PLATELET COUNT (test code = PLT) 273 x10 3/uL 150-400 N MEAN PLATELET VOLUME (test code = MPV) 9.8 fL 7.0-9.0 H NEUTROPHIL % (test code = NT%) 57.7 % 56.0-77.0 N IMMATURE GRANULOCYTE % (test code = IG%) 1.1 % 0.0-2.0 N LYMPHOCYTE % (test code = LY%) 23.5 % 14.0-32.0 N MONOCYTE % (test code = MO%) 13.3 % 4.8-9.0 H EOSINOPHIL % (test code = EO%) 3.8 % 0.3-3.7 H BASOPHIL % (test code = BA%) 0.6 % 0.0-2.0 N NUCLEATED RBC % (test code = NRBC%) 0.0 % 0-0 N NEUTROPHIL # (test code = NT#) 4.56 x10 3/uL 2.0-7.6 N IMMATURE GRANULOCYTE # (test code = IG#) 0.09 x10 3/uL 0.00-0.03 H LYMPHOCYTE # (test code = LY#) 1.86 x10 3/uL 1.0-3.8 N MONOCYTE # (test code = MO#) 1.05 x10 3/uL 0.1-0.8 H EOSINOPHIL # (test code = EO#) 0.30 x10 3/uL 0.0-0.2 H BASOPHIL # (test code = BA#) 0.05 x10 3/uL 0.0-0.2 N NUCLEATED RBC # (test code = NRBC#) 0.00 x10 3/uL 0.0-0.1 N MANUAL DIFF REQUIRED (test code = MDIFF) NO COMMENTS: DAILYARTERIAL THROMBOPHILIA [id number] 12:07:00* Test Item Value Reference Range Interpretation Comments PROTHROMBIN 3 UNTRANSLATED (test code = [id number]) PROTHROMBIN TIME PATIENT (test code = PTP) 11.7 SECONDS 9.3-12.9 N INTERNATIONAL NORMAL RATIO (test code = INR) 1.1 0.8-1.2 N TARGET INR BY INDICATION Indication INR1. Prophylaxis of venous thrombosis 2.0 - 3.0 (orthopedic surgery), Prophylaxis of venous thrombosis (other than high-risk surgery), Treatment of Deep Vein Thrombosis/Pulmonary Embolism, Prevention of systemic embolism - Tissue heart valves, Acute Myocardial Infarction (to prevent systemic embolism), Valvular heart disease, Atrial Fibrillation, Bileaflet mechanical valve in aortic position.2. Mechanical prosthetic valves (high risk), 2.5 - 3.5 Presence of Lupus Anticoagulant or Antiphospholipid Antibodies, Prevention of systemic embolism - Acute Myocardial Infarction (to prevent recurrent infarct). THROMBOPLASTIN TIME PARTIAL (test code = PTT) 26.2 Seconds 25.0-39. 5 N Therapeutic Range: 50.4 - 88.3 Seconds Effective 06/10/2018 PTT 1:1 MIX SERVICE OBSERVER (test code = PTTMIX2) SECONDS () PTT 1:3 MIX (test code = PTTMIX3) SECONDS () PT 1:2 MIX (test code = PTMIX2) SECONDS () Mixing study not indicated due to normal PT and PTT. RVVT PATIENT (test code = RVVTPAT) 0.9 RATIO 0.0-1.3 ACTIVATED PROT C RESISTANCE (test code = APC) 2.73 RATIO 2.31-5.0 0 Ratios > or = to 2.31 are considered negative for the FactorV Leiden. SILICA CLOTTING TIME (test code = SILCLOT) 0.94 <1.18 PT 12.9 sec (10.5- 13.4)PTT 28 sec (25-37) A Lupus Anticoagulant is NOT DETECTED. This interpretationis based on the test results. PROTEIN S FREE (test code = PROTSFR) 100 % 68-126 Protein S deficiency may be acquired due to recentthrombosis, oral anticoagulant therapy, , oralcontraceptives or hormone replacement therapy, liverdysfunction, recent surgery, DIC, and vitamin K deficiency.Hereditary deficiency of Protein S show decreased levels butare rare. Elevated Protein S levels are not clinicallysignificant. Only decreased levels are associated with anincreased thrombotic risk. LIZET IGG (test code = ACAG) LIZET IGA (test code = ACAA) LIZET IGM (test code = ACAM) WNVU-5-CQDNJ I IGM (test code = GPIIGM) SMU 0.0-20.0 GEZD-3-BJJCB I IGG (test code = GPIIGG) SGU 0.0-20.0 YJEF-3-HCXEU I IGA (test code = GPIIGA) 1.4 LUIS 0.0-20.0 The Antiphospholipid Syndrome (APS) is a clinical pathologiccondition that includes a clinical event (vascularthrombosis, mortality, thrombocytopenia, etc.) andpersistent positivity of antiphospholipid antibodies (IgG orIgM LIZET>40 GPL/MPL, IgG or IgM anti-B2GPI antibodies, or thepresence of a Lupus Anticoagulant). The InternationalConsensus guidelines suggest that these isotypes must bepresent on two or more occasions and at least 12 weeks apartto confirm antibody persistence. Although the IgA isotypehas been implicated in thrombotic events, these isotypeshave not yet been included into the APS criteria. HOMOCYSTEINE (test code = HOMOCY) 10.2 umol/L 3.2-10.7 N [id number] 12:07:00* Test Item Value Reference Range Interpretation Comments FIBRINOGEN (test code = FIB) 368 MG/DL 160-450 N Excess administration of anticoagulants and/or FibrinDegradation Products may affect Fibrinogen value. FACTOR [id number] 12:07:00* Test Item Value Reference Range Interpretation Comments FACTOR VII (test code = FAC7) 86 % 60-140 ANTITHROMBIN III (ATIII)2019-08-27 12:07:00* Test Item Value Reference Range Interpretation Comments ANTITHROMBIN III (ATIII) (test code = AT3) 114 % 83-128 Acquired antithrombin deficiency may occur with renalfailure associated with proteinuria nephrotic syndrome,liver failure or cirrhosis or an immature liver secondary topremature , accelerated consumption due to severeinjury, DIC, or recent thrombosis, and heparin therapy.Hereditary deficiency of antithrombin show decreased levelsbut are rare. Elevated antithrombin levels are notclinicallt significant. PROTEIN C [id number] 12:07:00* Test Item Value Reference Range Interpretation Comments PROTEIN C FUNCTIONAL (test code = PROTCFN) 87 % 70-140 Protein C deficiency may be acquired due to recentthrombosis, oral anticoagulant therapy, hepatic disorders,post-surgery, DIC, and vitamin K deficiency. Hereditarydeficiency show decreased levels but are rare. ElevatedProtein C levels are not clinically significant. Only decreased levels are associated with increased thromboticrisk. However, oral anti-Xa or anti-thrombin medications maycause falsely increased levels of Protein C. PROTEIN C [id number] 12:07:00* Test Item Value Reference Range Interpretation Comments PROTEIN C ANTIGENIC (test code = PROTCAG) PROTEIN S [id number] 12:07:00* Test Item Value Reference Range Interpretation Comments PROTEIN S FUNC (test code = PROTSFN) 128 % 74-148 Protein S deficiency may be acquired due to recentthrombosis, oral anticoagulant therapy, , oralcontraceptives or hormone replacement therapy, liverdysfunction, recent surgery, DIC, and vitamin K deficiency.Hereditary deficiency of Protein S show decreased levels butare rare. Elevated Protein S levels are not clinicallysignificant. Only decreased levels are associated with anincreased thrombotic risk. BASIC METABOLIC [id number] 08:08:00* Test Item Value Reference Range Interpretation Comments SODIUM (test code = NA) 138 mEq/L 134-147 N POTASSIUM (test code = K) 3.5 mEq/L 3.4-5.0 N CHLORIDE (test code = CL) 106 mEq/L 100-108 N CARBON DIOXIDE (test code = CO2) 23 mEq/L 21-33 N ANION GAP (test code = GAP) 13 0-20 N GLUCOSE (test code = GLU) 92 mg/dL 70-110 N BLOOD UREA NITROGEN (test code = BUN) 13 mg/dL 7-18 N GLOMERULAR FILTRATION RATE (test code = GFR) 88.6 90-95 L Units of measure = ml/min/1.73 m2 CREATININE (test code = CREAT) 0.9 mg/dL 0.6-1.3 N CALCIUM (test code = CA) 8.0 mg/dL 8.0-10.5 N CBC W/AUTO [id number] 07:35:00* Test Item Value Reference Range Interpretation Comments WHITE BLOOD CELL (test code = WBC) 10.14 x10 3/uL 4.5-11.0 N RED BLOOD CELL (test code = RBC) 4.82 x10 6/uL 4.00-5.60 N HEMOGLOBIN (test code = HGB) 15.7 g/dL 12.5-16.9 N HEMATOCRIT (test code = HCT) 46.3 % 37.5-50.7 N MEAN CELL VOLUME (test code = MCV) 96.1 fL 81.0-99.0 N MEAN CELL HGB (test code = MCH) 32.6 pg 27.0-33.0 N MEAN CELL HGB CONCETRATION (test code = MCHC) 33.9 g/dL 33.0-37. 0 N RED CELL DISTRIBUTION WIDTH CV (test code = RDW) 13.7 % 11.5- 14.5 N RED CELL DISTRIBUTION WIDTH SD (test code = RDW-SD) 48.4 fL 37 .0-54.0 N PLATELET COUNT (test code = PLT) 252 x10 3/uL 150-400 N MEAN PLATELET VOLUME (test code = MPV) 10.1 fL 7.0-9.0 H NEUTROPHIL % (test code = NT%) 61.9 % 56.0-77.0 N IMMATURE GRANULOCYTE % (test code = IG%) 0.7 % 0.0-2.0 N LYMPHOCYTE % (test code = LY%) 21.9 % 14.0-32.0 N MONOCYTE % (test code = MO%) 12.7 % 4.8-9.0 H EOSINOPHIL % (test code = EO%) 2.4 % 0.3-3.7 N BASOPHIL % (test code = BA%) 0.4 % 0.0-2.0 N NUCLEATED RBC % (test code = NRBC%) 0.0 % 0-0 N NEUTROPHIL # (test code = NT#) 6.28 x10 3/uL 2.0-7.6 N IMMATURE GRANULOCYTE # (test code = IG#) 0.07 x10 3/uL 0.00-0.03 H LYMPHOCYTE # (test code = LY#) 2.22 x10 3/uL 1.0-3.8 N MONOCYTE # (test code = MO#) 1.29 x10 3/uL 0.1-0.8 H EOSINOPHIL # (test code = EO#) 0.24 x10 3/uL 0.0-0.2 H BASOPHIL # (test code = BA#) 0.04 x10 3/uL 0.0-0.2 N NUCLEATED RBC # (test code = NRBC#) 0.00 x10 3/uL 0.0-0.1 N MANUAL DIFF REQUIRED (test code = MDIFF) NO COMMENTS: DAILYC REACTIVE [id number] 07:14:00* Test Item Value Reference Range Interpretation Comments C REACTIVE PROTEIN (test code = CRP) 27.6 MG/L 0.0-2.9 H RHEUMATOID FACTOR [id number] 07:14:00* Test Item Value Reference Range Interpretation Comments RHEUMATOID FACTOR SCREEN (test code = RA) < 10.0 IU/mL 0.0-13.9 Performed At: [facility] [address] [id number] Rae MD Ph:[phone] ANTINUCLEAR ANTIBODIES [id number] 07:14:00* Test Item Value Reference Range Interpretation Comments KRYSTAL SCREEN (test code = ANASCR) Negative () Negative <1:80 Borderline 1:80 Positive >1:80Performed At: [facility] [address] [id number] Rae MD Ph:[phone] [id number] 20:30:00* Test Item Value Reference Range Interpretation Comments GLUBED (test code = GLUBED) 111 MG/DL 70-110 H Performed by certified well flow operator at [facility] - XR SHOULDER 2 + V [id number] 14:37:00 FAX: Sven Wild DO [phone] [place]: St: ADM FAX: Anat Chan NP [phone] FAX: Storm Granda I [phone] Name: MELVIN ROWE [facility] Shobonier : 1965 Age/S: 54/M [address] [place] [address] Unit #: [id number] Loc: [address] [address] Phys: Anat Chan NP Acct: [id number] Dis Date: Status: ADM IN ONE #: [phone] Exam Date: 08/26/2019 1321 FAX #: [phone] Reason: FALL WITH STROKE EXAMS: CPT CODE: [id number] XR SHOULDER 2 + [place] [id number] Left shoulder 3 views: HISTORY: Fall with stroke. FINDINGS: Normal alignment. No fracture or dislocation. SL: [id number] at 1437 Reported and signed by: Carroll Bright M.D. CC: Sven Ayers DO; Anat Chan SERVICE OBSERVER; Storm Valle echnologist: ANITA Bellamy RT(R) Trnscrd Date /Time/By: 08/26/2019 (1437) : By: GuilhermeETG Orig Print D/T: S: 020 (3468) PAGE 1 Signed Report BASIC METABOLIC [id number] 05:29:00* Test Item Value Reference Range Interpretation Comments SODIUM (test code = NA) 138 mEq/L 134-147 N POTASSIUM (test code = K) 3.6 mEq/L 3.4-5.0 N CHLORIDE (test code = CL) 108 mEq/L 100-108 N CARBON DIOXIDE (test code = CO2) 23 mEq/L 21-33 N ANION GAP (test code = GAP) 11 0-20 N GLUCOSE (test code = GLU) 94 mg/dL 70-110 N BLOOD UREA NITROGEN (test code = BUN) 14 mg/dL 7-18 N GLOMERULAR FILTRATION RATE (test code = GFR) 78.5 90-95 L Units of measure = ml/min/1.73 m2 CREATININE (test code = CREAT) 1.0 mg/dL 0.6-1.3 N CALCIUM (test code = CA) 8.0 mg/dL 8.0-10.5 N CBC W/AUTO [id number] 05:15:00* Test Item Value Reference Range Interpretation Comments WHITE BLOOD CELL (test code = WBC) 8.32 x10 3/uL 4.5-11.0 N RED BLOOD CELL (test code = RBC) 4.92 x10 6/uL 4.00-5.60 N HEMOGLOBIN (test code = HGB) 16.3 g/dL 12.5-16.9 N HEMATOCRIT (test code = HCT) 47.1 % 37.5-50.7 N MEAN CELL VOLUME (test code = MCV) 95.7 fL 81.0-99.0 N MEAN CELL HGB (test code = MCH) 33.1 pg 27.0-33.0 H MEAN CELL HGB CONCETRATION (test code = MCHC) 34.6 g/dL 33.0-37. 0 N RED CELL DISTRIBUTION WIDTH CV (test code = RDW) 13.5 % 11.5- 14.5 N RED CELL DISTRIBUTION WIDTH SD (test code = RDW-SD) 47.8 fL 37 .0-54.0 N PLATELET COUNT (test code = PLT) 225 x10 3/uL 150-400 N MEAN PLATELET VOLUME (test code = MPV) 9.5 fL 7.0-9.0 H NEUTROPHIL % (test code = NT%) 52.2 % 56.0-77.0 L IMMATURE GRANULOCYTE % (test code = IG%) 0.5 % 0.0-2.0 N LYMPHOCYTE % (test code = LY%) 29.4 % 14.0-32.0 N MONOCYTE % (test code = MO%) 14.4 % 4.8-9.0 H EOSINOPHIL % (test code = EO%) 2.9 % 0.3-3.7 N BASOPHIL % (test code = BA%) 0.6 % 0.0-2.0 N NUCLEATED RBC % (test code = NRBC%) 0.0 % 0-0 N NEUTROPHIL # (test code = NT#) 4.34 x10 3/uL 2.0-7.6 N IMMATURE GRANULOCYTE # (test code = IG#) 0.04 x10 3/uL 0.00-0.03 H LYMPHOCYTE # (test code = LY#) 2.45 x10 3/uL 1.0-3.8 N MONOCYTE # (test code = MO#) 1.20 x10 3/uL 0.1-0.8 H EOSINOPHIL # (test code = EO#) 0.24 x10 3/uL 0.0-0.2 H BASOPHIL # (test code = BA#) 0.05 x10 3/uL 0.0-0.2 N NUCLEATED RBC # (test code = NRBC#) 0.00 x10 3/uL 0.0-0.1 N MANUAL DIFF REQUIRED (test code = MDIFF) NO COMMENTS: DAILYARTERIAL THROMBOPHILIA [id number] 16:14:00* Test Item Value Reference Range Interpretation Comments PROTHROMBIN 3 UNTRANSLATED (test code = [id number]) PROTHROMBIN TIME PATIENT (test code = PTP) 11.7 SECONDS 9.3-12.9 N INTERNATIONAL NORMAL RATIO (test code = INR) 1.1 0.8-1.2 N TARGET INR BY INDICATION Indication INR1. Prophylaxis of venous thrombosis 2.0 - 3.0 (orthopedic surgery), Prophylaxis of venous thrombosis (other than high-risk surgery), Treatment of Deep Vein Thrombosis/Pulmonary Embolism, Prevention of systemic embolism - Tissue heart valves, Acute Myocardial Infarction (to prevent systemic embolism), Valvular heart disease, Atrial Fibrillation, Bileaflet mechanical valve in aortic position.2. Mechanical prosthetic valves (high risk), 2.5 - 3.5 Presence of Lupus Anticoagulant or Antiphospholipid Antibodies, Prevention of systemic embolism - Acute Myocardial Infarction (to prevent recurrent infarct). THROMBOPLASTIN TIME PARTIAL (test code = PTT) 26.2 Seconds 25.0-39. 5 N Therapeutic Range: 50.4 - 88.3 Seconds Effective 06/10/2018 PTT 1:1 MIX SERVICE OBSERVER (test code = PTTMIX2) SECONDS () PTT 1:3 MIX (test code = PTTMIX3) SECONDS () PT 1:2 MIX (test code = PTMIX2) SECONDS () Mixing study not indicated due to normal PT and PTT. RVVT PATIENT (test code = RVVTPAT) 0.9 RATIO 0.0-1.3 ACTIVATED PROT C RESISTANCE (test code = APC) 2.73 RATIO 2.31-5.0 0 Ratios > or = to 2.31 are considered negative for the FactorV Leiden. SILICA CLOTTING TIME (test code = SILCLOT) 0.94 <1.18 PT 12.9 sec (10.5- 13.4)PTT 28 sec (25-37) A Lupus Anticoagulant is NOT DETECTED. This interpretationis based on the test results. PROTEIN S FREE (test code = PROTSFR) 100 % 68-126 Protein S deficiency may be acquired due to recentthrombosis, oral anticoagulant therapy, , oralcontraceptives or hormone replacement therapy, liverdysfunction, recent surgery, DIC, and vitamin K deficiency.Hereditary deficiency of Protein S show decreased levels butare rare. Elevated Protein S levels are not clinicallysignificant. Only decreased levels are associated with anincreased thrombotic risk. LIZET IGG (test code = ACAG) LIZET IGA (test code = ACAA) LIZET IGM (test code = ACAM) IHUJ-8-VPZCK I IGM (test code = GPIIGM) SMU <20 BLOQ-6-NYPZJ I IGG (test code = GPIIGG) UNITS <20 PVZJ-1-ONPLT I IGA (test code = GPIIGA) 0.0-20.0 HOMOCYSTEINE (test code = HOMOCY) 10.2 umol/L 3.2-10.7 N [id number] 16:14:00* Test Item Value Reference Range Interpretation Comments FIBRINOGEN (test code = FIB) 368 MG/DL 160-450 N Excess administration of anticoagulants and/or FibrinDegradation Products may affect Fibrinogen value. FACTOR [id number] 16:14:00* Test Item Value Reference Range Interpretation Comments FACTOR VII (test code = FAC7) 86 % 60-140 ANTITHROMBIN III (ATIII)2019-08-25 16:14:00* Test Item Value Reference Range Interpretation Comments ANTITHROMBIN III (ATIII) (test code = AT3) 114 % 83-128 Acquired antithrombin deficiency may occur with renalfailure associated with proteinuria nephrotic syndrome,liver failure or cirrhosis or an immature liver secondary topremature , accelerated consumption due to severeinjury, DIC, or recent thrombosis, and heparin therapy.Hereditary deficiency of antithrombin show decreased levelsbut are rare. Elevated antithrombin levels are notclinicallt significant. PROTEIN C [id number] 16:14:00* Test Item Value Reference Range Interpretation Comments PROTEIN C FUNCTIONAL (test code = PROTCFN) 87 % 70-140 Protein C deficiency may be acquired due to recentthrombosis, oral anticoagulant therapy, hepatic disorders,post-surgery, DIC, and vitamin K deficiency. Hereditarydeficiency show decreased levels but are rare. ElevatedProtein C levels are not clinically significant. Only decreased levels are associated with increased thromboticrisk. However, oral anti-Xa or anti-thrombin medications maycause falsely increased levels of Protein C. PROTEIN C [id number] 16:14:00* Test Item Value Reference Range Interpretation Comments PROTEIN C ANTIGENIC (test code = PROTCAG) PROTEIN S [id number] 16:14:00* Test Item Value Reference Range Interpretation Comments PROTEIN S FUNC (test code = PROTSFN) 128 % 74-148 Protein S deficiency may be acquired due to recentthrombosis, oral anticoagulant therapy, , oralcontraceptives or hormone replacement therapy, liverdysfunction, recent surgery, DIC, and vitamin K deficiency.Hereditary deficiency of Protein S show decreased levels butare rare. Elevated Protein S levels are not clinicallysignificant. Only decreased levels are associated with anincreased thrombotic risk. ARTERIAL THROMBOPHILIA [id number] 16:11:00* Test Item Value Reference Range Interpretation Comments PROTHROMBIN 3 UNTRANSLATED (test code = [id number]) PROTHROMBIN TIME PATIENT (test code = PTP) 11.7 SECONDS 9.3-12.9 N INTERNATIONAL NORMAL RATIO (test code = INR) 1.1 0.8-1.2 N TARGET INR BY INDICATION Indication INR1. Prophylaxis of venous thrombosis 2.0 - 3.0 (orthopedic surgery), Prophylaxis of venous thrombosis (other than high-risk surgery), Treatment of Deep Vein Thrombosis/Pulmonary Embolism, Prevention of systemic embolism - Tissue heart valves, Acute Myocardial Infarction (to prevent systemic embolism), Valvular heart disease, Atrial Fibrillation, Bileaflet mechanical valve in aortic position.2. Mechanical prosthetic valves (high risk), 2.5 - 3.5 Presence of Lupus Anticoagulant or Antiphospholipid Antibodies, Prevention of systemic embolism - Acute Myocardial Infarction (to prevent recurrent infarct). THROMBOPLASTIN TIME PARTIAL (test code = PTT) 26.2 Seconds 25.0-39. 5 N Therapeutic Range: 50.4 - 88.3 Seconds Effective 06/10/2018 PTT 1:1 MIX SERVICE OBSERVER (test code = PTTMIX2) SECONDS () PTT 1:3 MIX (test code = PTTMIX3) SECONDS () PT 1:2 MIX (test code = PTMIX2) SECONDS () Mixing study not indicated due to normal PT and PTT. RVVT PATIENT (test code = RVVTPAT) 0.9 RATIO 0.0-1.3 ACTIVATED PROT C RESISTANCE (test code = APC) SILICA CLOTTING TIME (test code = SILCLOT) 0.94 <1.18 PT 12.9 sec (10.5- 13.4)PTT 28 sec (25-37) A Lupus Anticoagulant is NOT DETECTED. This interpretationis based on the test results. PROTEIN S FREE (test code = PROTSFR) 100 % 68-126 Protein S deficiency may be acquired due to recentthrombosis, oral anticoagulant therapy, , oralcontraceptives or hormone replacement therapy, liverdysfunction, recent surgery, DIC, and vitamin K deficiency.Hereditary deficiency of Protein S show decreased levels butare rare. Elevated Protein S levels are not clinicallysignificant. Only decreased levels are associated with anincreased thrombotic risk. LIZET IGG (test code = ACAG) LIZET IGA (test code = ACAA) LIZET IGM (test code = ACAM) DKAJ-8-CHSFZ I IGM (test code = GPIIGM) SMU <20 HJKC-8-RHEZR I IGG (test code = GPIIGG) UNITS <20 SDZW-2-RJINH I IGA (test code = GPIIGA) 0.0-20.0 HOMOCYSTEINE (test code = HOMOCY) 10.2 umol/L 3.2-10.7 N [id number] 16:11:00* Test Item Value Reference Range Interpretation Comments FIBRINOGEN (test code = FIB) 368 MG/DL 160-450 N Excess administration of anticoagulants and/or FibrinDegradation Products may affect Fibrinogen value. FACTOR [id number] 16:11:00* Test Item Value Reference Range Interpretation Comments FACTOR VII (test code = FAC7) 86 % 60-140 ANTITHROMBIN III (ATIII)2019-08-25 16:11:00* Test Item Value Reference Range Interpretation Comments ANTITHROMBIN III (ATIII) (test code = AT3) 114 % 83-128 Acquired antithrombin deficiency may occur with renalfailure associated with proteinuria nephrotic syndrome,liver failure or cirrhosis or an immature liver secondary topremature , accelerated consumption due to severeinjury, DIC, or recent thrombosis, and heparin therapy.Hereditary deficiency of antithrombin show decreased levelsbut are rare. Elevated antithrombin levels are notclinicallt significant. PROTEIN C [id number] 16:11:00* Test Item Value Reference Range Interpretation Comments PROTEIN C FUNCTIONAL (test code = PROTCFN) 87 % 70-140 Protein C deficiency may be acquired due to recentthrombosis, oral anticoagulant therapy, hepatic disorders,post-surgery, DIC, and vitamin K deficiency. Hereditarydeficiency show decreased levels but are rare. ElevatedProtein C levels are not clinically significant. Only decreased levels are associated with increased thromboticrisk. However, oral anti-Xa or anti-thrombin medications maycause falsely increased levels of Protein C. PROTEIN C [id number] 16:11:00* Test Item Value Reference Range Interpretation Comments PROTEIN C ANTIGENIC (test code = PROTCAG) PROTEIN S [id number] 16:11:00* Test Item Value Reference Range Interpretation Comments PROTEIN S FUNC (test code = PROTSFN) 128 % 74-148 Protein S deficiency may be acquired due to recentthrombosis, oral anticoagulant therapy, , oralcontraceptives or hormone replacement therapy, liverdysfunction, recent surgery, DIC, and vitamin K deficiency.Hereditary deficiency of Protein S show decreased levels butare rare. Elevated Protein S levels are not clinicallysignificant. Only decreased levels are associated with anincreased thrombotic risk. ARTERIAL THROMBOPHILIA [id number] 16:09:00* Test Item Value Reference Range Interpretation Comments PROTHROMBIN 3 UNTRANSLATED (test code = [id number]) PROTHROMBIN TIME PATIENT (test code = PTP) 11.7 SECONDS 9.3-12.9 N INTERNATIONAL NORMAL RATIO (test code = INR) 1.1 0.8-1.2 N TARGET INR BY INDICATION Indication INR1. Prophylaxis of venous thrombosis 2.0 - 3.0 (orthopedic surgery), Prophylaxis of venous thrombosis (other than high-risk surgery), Treatment of Deep Vein Thrombosis/Pulmonary Embolism, Prevention of systemic embolism - Tissue heart valves, Acute Myocardial Infarction (to prevent systemic embolism), Valvular heart disease, Atrial Fibrillation, Bileaflet mechanical valve in aortic position.2. Mechanical prosthetic valves (high risk), 2.5 - 3.5 Presence of Lupus Anticoagulant or Antiphospholipid Antibodies, Prevention of systemic embolism - Acute Myocardial Infarction (to prevent recurrent infarct). THROMBOPLASTIN TIME PARTIAL (test code = PTT) 26.2 Seconds 25.0-39. 5 N Therapeutic Range: 50.4 - 88.3 Seconds Effective 06/10/2018 PTT 1:1 MIX SERVICE OBSERVER (test code = PTTMIX2) SECONDS () PTT 1:3 MIX (test code = PTTMIX3) SECONDS () PT 1:2 MIX (test code = PTMIX2) SECONDS () Mixing study not indicated due to normal PT and PTT. RVVT PATIENT (test code = RVVTPAT) 0.9 RATIO 0.0-1.3 ACTIVATED PROT C RESISTANCE (test code = APC) SILICA CLOTTING TIME (test code = SILCLOT) 0.94 <1.18 PT 12.9 sec (10.5- 13.4)PTT 28 sec (25-37) A Lupus Anticoagulant is NOT DETECTED. This interpretationis based on the test results. PROTEIN S FREE (test code = PROTSFR) % LIZET IGG (test code = ACAG) LIZET IGA (test code = ACAA) LIZET IGM (test code = ACAM) NZNA-7-MYDGZ I IGM (test code = GPIIGM) SMU <20 AYTJ-6-GTBDO I IGG (test code = GPIIGG) UNITS <20 JNHE-1-OUIGU I IGA (test code = GPIIGA) 0.0-20.0 HOMOCYSTEINE (test code = HOMOCY) 10.2 umol/L 3.2-10.7 N [id number] 16:09:00* Test Item Value Reference Range Interpretation Comments FIBRINOGEN (test code = FIB) 368 MG/DL 160-450 N Excess administration of anticoagulants and/or FibrinDegradation Products may affect Fibrinogen value. FACTOR [id number] 16:09:00* Test Item Value Reference Range Interpretation Comments FACTOR VII (test code = FAC7) 86 % 60-140 ANTITHROMBIN III (ATIII)2019-08-25 16:09:00* Test Item Value Reference Range Interpretation Comments ANTITHROMBIN III (ATIII) (test code = AT3) 114 % 83-128 Acquired antithrombin deficiency may occur with renalfailure associated with proteinuria nephrotic syndrome,liver failure or cirrhosis or an immature liver secondary topremature , accelerated consumption due to severeinjury, DIC, or recent thrombosis, and heparin therapy.Hereditary deficiency of antithrombin show decreased levelsbut are rare. Elevated antithrombin levels are notclinicallt significant. PROTEIN C [id number] 16:09:00* Test Item Value Reference Range Interpretation Comments PROTEIN C FUNCTIONAL (test code = PROTCFN) % PROTEIN C [id number] 16:09:00* Test Item Value Reference Range Interpretation Comments PROTEIN C ANTIGENIC (test code = PROTCAG) PROTEIN S [id number] 16:09:00* Test Item Value Reference Range Interpretation Comments PROTEIN S FUNC (test code = PROTSFN) ARTERIAL THROMBOPHILIA [id number] 16:09:00* Test Item Value Reference Range Interpretation Comments PROTHROMBIN 3 UNTRANSLATED (test code = [id number]) PROTHROMBIN TIME PATIENT (test code = PTP) 11.7 SECONDS 9.3-12.9 N INTERNATIONAL NORMAL RATIO (test code = INR) 1.1 0.8-1.2 N TARGET INR BY INDICATION Indication INR1. Prophylaxis of venous thrombosis 2.0 - 3.0 (orthopedic surgery), Prophylaxis of venous thrombosis (other than high-risk surgery), Treatment of Deep Vein Thrombosis/Pulmonary Embolism, Prevention of systemic embolism - Tissue heart valves, Acute Myocardial Infarction (to prevent systemic embolism), Valvular heart disease, Atrial Fibrillation, Bileaflet mechanical valve in aortic position.2. Mechanical prosthetic valves (high risk), 2.5 - 3.5 Presence of Lupus Anticoagulant or Antiphospholipid Antibodies, Prevention of systemic embolism - Acute Myocardial Infarction (to prevent recurrent infarct). THROMBOPLASTIN TIME PARTIAL (test code = PTT) 26.2 Seconds 25.0-39. 5 N Therapeutic Range: 50.4 - 88.3 Seconds Effective 06/10/2018 PTT 1:1 MIX SERVICE OBSERVER (test code = PTTMIX2) SECONDS () PTT 1:3 MIX (test code = PTTMIX3) SECONDS () PT 1:2 MIX (test code = PTMIX2) SECONDS () Mixing study not indicated due to normal PT and PTT. RVVT PATIENT (test code = RVVTPAT) 0.9 RATIO 0.0-1.3 ACTIVATED PROT C RESISTANCE (test code = APC) SILICA CLOTTING TIME (test code = SILCLOT) 0.94 <1.18 PT 12.9 sec (10.5- 13.4)PTT 28 sec (25-37) A Lupus Anticoagulant is NOT DETECTED. This interpretationis based on the test results. PROTEIN S FREE (test code = PROTSFR) % LIZET IGG (test code = ACAG) LIZET IGA (test code = ACAA) LIZET IGM (test code = ACAM) GJIJ-6-UYEPT I IGM (test code = GPIIGM) SMU <20 GWQF-0-GRRUB I IGG (test code = GPIIGG) UNITS <20 TEGT-1-LFMZH I IGA (test code = GPIIGA) 0.0-20.0 HOMOCYSTEINE (test code = HOMOCY) 10.2 umol/L 3.2-10.7 N [id number] 16:09:00* Test Item Value Reference Range Interpretation Comments FIBRINOGEN (test code = FIB) 368 MG/DL 160-450 N Excess administration of anticoagulants and/or FibrinDegradation Products may affect Fibrinogen value. FACTOR [id number] 16:09:00* Test Item Value Reference Range Interpretation Comments FACTOR VII (test code = FAC7) 86 % 60-140 ANTITHROMBIN III (ATIII)2019-08-25 16:09:00* Test Item Value Reference Range Interpretation Comments ANTITHROMBIN III (ATIII) (test code = AT3) 114 % 83-128 Acquired antithrombin deficiency may occur with renalfailure associated with proteinuria nephrotic syndrome,liver failure or cirrhosis or an immature liver secondary topremature , accelerated consumption due to severeinjury, DIC, or recent thrombosis, and heparin therapy.Hereditary deficiency of antithrombin show decreased levelsbut are rare. Elevated antithrombin levels are notclinicallt significant. PROTEIN C [id number] 16:09:00* Test Item Value Reference Range Interpretation Comments PROTEIN C FUNCTIONAL (test code = PROTCFN) 87 % 70-140 Protein C deficiency may be acquired due to recentthrombosis, oral anticoagulant therapy, hepatic disorders,post-surgery, DIC, and vitamin K deficiency. Hereditarydeficiency show decreased levels but are rare. ElevatedProtein C levels are not clinically significant. Only decreased levels are associated with increased thromboticrisk. However, oral anti-Xa or anti-thrombin medications maycause falsely increased levels of Protein C. PROTEIN C [id number] 16:09:00* Test Item Value Reference Range Interpretation Comments PROTEIN C ANTIGENIC (test code = PROTCAG) PROTEIN S [id number] 16:09:00* Test Item Value Reference Range Interpretation Comments PROTEIN S FUNC (test code = PROTSFN) FACTOR [id number] 16:08:00* Test Item Value Reference Range Interpretation Comments FACTOR VIII (test code = FAC8) 137 % 50-200 ARTERIAL THROMBOPHILIA [id number] 16:07:00* Test Item Value Reference Range Interpretation Comments PROTHROMBIN 3 UNTRANSLATED (test code = [id number]) PROTHROMBIN TIME PATIENT (test code = PTP) 11.7 SECONDS 9.3-12.9 N INTERNATIONAL NORMAL RATIO (test code = INR) 1.1 0.8-1.2 N TARGET INR BY INDICATION Indication INR1. Prophylaxis of venous thrombosis 2.0 - 3.0 (orthopedic surgery), Prophylaxis of venous thrombosis (other than high-risk surgery), Treatment of Deep Vein Thrombosis/Pulmonary Embolism, Prevention of systemic embolism - Tissue heart valves, Acute Myocardial Infarction (to prevent systemic embolism), Valvular heart disease, Atrial Fibrillation, Bileaflet mechanical valve in aortic position.2. Mechanical prosthetic valves (high risk), 2.5 - 3.5 Presence of Lupus Anticoagulant or Antiphospholipid Antibodies, Prevention of systemic embolism - Acute Myocardial Infarction (to prevent recurrent infarct). THROMBOPLASTIN TIME PARTIAL (test code = PTT) 26.2 Seconds 25.0-39. 5 N Therapeutic Range: 50.4 - 88.3 Seconds Effective 06/10/2018 PTT 1:1 MIX SERVICE OBSERVER (test code = PTTMIX2) SECONDS () PTT 1:3 MIX (test code = PTTMIX3) SECONDS () PT 1:2 MIX (test code = PTMIX2) SECONDS () Mixing study not indicated due to normal PT and PTT. RVVT PATIENT (test code = RVVTPAT) 0.9 RATIO 0.0-1.3 ACTIVATED PROT C RESISTANCE (test code = APC) SILICA CLOTTING TIME (test code = SILCLOT) 0.94 <1.18 PT 12.9 sec (10.5- 13.4)PTT 28 sec (25-37) A Lupus Anticoagulant is NOT DETECTED. This interpretationis based on the test results. PROTEIN S FREE (test code = PROTSFR) % LIZET IGG (test code = ACAG) LIZET IGA (test code = ACAA) LIZET IGM (test code = ACAM) WAAJ-2-SCXWN I IGM (test code = GPIIGM) SMU <20 VBNU-3-ODDVQ I IGG (test code = GPIIGG) UNITS <20 EUWJ-2-KJOCW I IGA (test code = GPIIGA) 0.0-20.0 HOMOCYSTEINE (test code = HOMOCY) 10.2 umol/L 3.2-10.7 N [id number] 16:07:00* Test Item Value Reference Range Interpretation Comments FIBRINOGEN (test code = FIB) 368 MG/DL 160-450 N Excess administration of anticoagulants and/or FibrinDegradation Products may affect Fibrinogen value. FACTOR [id number] 16:07:00* Test Item Value Reference Range Interpretation Comments FACTOR VII (test code = FAC7) 86 % 60-140 ANTITHROMBIN III (ATIII)2019-08-25 16:07:00* Test Item Value Reference Range Interpretation Comments ANTITHROMBIN III (ATIII) (test code = AT3) PROTEIN C [id number] 16:07:00* Test Item Value Reference Range Interpretation Comments PROTEIN C FUNCTIONAL (test code = PROTCFN) % PROTEIN C [id number] 16:07:00* Test Item Value Reference Range Interpretation Comments PROTEIN C ANTIGENIC (test code = PROTCAG) PROTEIN S [id number] 16:07:00* Test Item Value Reference Range Interpretation Comments PROTEIN S FUNC (test code = PROTSFN) ARTERIAL THROMBOPHILIA [id number] 15:53:00* Test Item Value Reference Range Interpretation Comments PROTHROMBIN 3 UNTRANSLATED (test code = [id number]) PROTHROMBIN TIME PATIENT (test code = PTP) 11.7 SECONDS 9.3-12.9 N INTERNATIONAL NORMAL RATIO (test code = INR) 1.1 0.8-1.2 N TARGET INR BY INDICATION Indication INR1. Prophylaxis of venous thrombosis 2.0 - 3.0 (orthopedic surgery), Prophylaxis of venous thrombosis (other than high-risk surgery), Treatment of Deep Vein Thrombosis/Pulmonary Embolism, Prevention of systemic embolism - Tissue heart valves, Acute Myocardial Infarction (to prevent systemic embolism), Valvular heart disease, Atrial Fibrillation, Bileaflet mechanical valve in aortic position.2. Mechanical prosthetic valves (high risk), 2.5 - 3.5 Presence of Lupus Anticoagulant or Antiphospholipid Antibodies, Prevention of systemic embolism - Acute Myocardial Infarction (to prevent recurrent infarct). THROMBOPLASTIN TIME PARTIAL (test code = PTT) 26.2 Seconds 25.0-39. 5 N Therapeutic Range: 50.4 - 88.3 Seconds Effective 06/10/2018 PTT 1:1 MIX SERVICE OBSERVER (test code = PTTMIX2) SECS PT 1:2 MIX (test code = PTMIX2) SECS RVVT PATIENT (test code = RVVTPAT) 0.9 RATIO 0.0-1.3 ACTIVATED PROT C RESISTANCE (test code = APC) SILICA CLOTTING TIME (test code = SILCLOT) 0.94 <1.18 PT 12.9 sec (10.5- 13.4)PTT 28 sec (25-37) A Lupus Anticoagulant is NOT DETECTED. This interpretationis based on the test results. PROTEIN S FREE (test code = PROTSFR) % LIZET IGG (test code = ACAG) LIEZT IGA (test code = ACAA) LIZET IGM (test code = ACAM) HVRV-5-LWUQR I IGM (test code = GPIIGM) SMU <20 ZQJY-8-CAELU I IGG (test code = GPIIGG) UNITS <20 XHPW-8-XEVOP I IGA (test code = GPIIGA) 0.0-20.0 HOMOCYSTEINE (test code = HOMOCY) 10.2 umol/L 3.2-10.7 N [id number] 15:53:00* Test Item Value Reference Range Interpretation Comments FIBRINOGEN (test code = FIB) 368 MG/DL 160-450 N Excess administration of anticoagulants and/or FibrinDegradation Products may affect Fibrinogen value. FACTOR [id number] 15:53:00* Test Item Value Reference Range Interpretation Comments FACTOR VII (test code = FAC7) % ANTITHROMBIN III (ATIII)2019-08-25 15:53:00* Test Item Value Reference Range Interpretation Comments ANTITHROMBIN III (ATIII) (test code = AT3) PROTEIN C [id number] 15:53:00* Test Item Value Reference Range Interpretation Comments PROTEIN C FUNCTIONAL (test code = PROTCFN) % PROTEIN C [id number] 15:53:00* Test Item Value Reference Range Interpretation Comments PROTEIN C ANTIGENIC (test code = PROTCAG) PROTEIN S [id number] 15:53:00* Test Item Value Reference Range Interpretation Comments PROTEIN S FUNC (test code = PROTSFN) - XR CHEST 1 [id number] 12:49:00 FAX: Tran Garland NP [phone] La[place]: St: ADM FAX: Sven Wild DO [phone] FAX: Storm Granda I [phone] Name: [facility] : 1965 Age/S: 54/M [address] [place] [address] Unit #: [id number] Loc: G.[address] [place] [address] Phys: Tran Garland NP Acct: [id number] Dis Date: Status: ADM IN ONE #: [phone] Exam Date: 08/25/2019 09 FAX #: [phone] Reason: copd EXAMS: CPT CODE: [id number] XR CHEST 1 V 63115 Clinical Indic ation: COPD. Comparison: 08/23/2019. Impression: Chest, s aleena view. Prior median sternotomy. Asymmetric elevation of the right hemidiaphragm, new since prior. No consolidation, pleural effusion, or pneumothorax. Osseous structures are unchanged. SL: [id number] at 1249 Reported and signed by: Hero Rodas M.D. CC: Tran Garland SERVICE OBSERVER; Sven Ayers DO; Storm Woods MD Technologist: Rhys Lopez RT(R) Trnscrd Date/Time/By: 07/28 (5654) : By: [email or web address] Orig Print D/T: S: 08/25/2019 ([id number]) PAGE 1 Signed Report C REACTIVE [id number] 11:10:00* Test Item Value Reference Range Interpretation Comments C REACTIVE PROTEIN (test code = CRP) 27.6 MG/L 0.0-2.9 H RHEUMATOID FACTOR [id number] 11:10:00* Test Item Value Reference Range Interpretation Comments RHEUMATOID FACTOR SCREEN (test code = RA) < 10.0 IU/mL 0.0-13.9 Performed At: [facility] [id number] Devan Rae MD Ph:[phone] ANTINUCLEAR ANTIBODIES [id number] 11:10:00* Test Item Value Reference Range Interpretation Comments KRYSTAL SCREEN (test code = ANASCR) [id number] 06:05:00* Test Item Value Reference Range Interpretation Comments AMMONIA (test code = AMM) 29 umol/L 0-35 BASIC METABOLIC [id number] 01:34:00* Test Item Value Reference Range Interpretation Comments SODIUM (test code = NA) 140 mEq/L 134-147 N POTASSIUM (test code = K) 3.9 mEq/L 3.4-5.0 N CHLORIDE (test code = CL) 111 mEq/L 100-108 H CARBON DIOXIDE (test code = CO2) 23 mEq/L 21-33 N ANION GAP (test code = GAP) 10 0-20 N GLUCOSE (test code = GLU) 85 mg/dL 70-110 N BLOOD UREA NITROGEN (test code = BUN) 13 mg/dL 7-18 N GLOMERULAR FILTRATION RATE (test code = GFR) 70.3 90-95 L Units of measure = ml/min/1.73 m2 CREATININE (test code = CREAT) 1.1 mg/dL 0.6-1.3 N CALCIUM (test code = CA) 7.6 mg/dL 8.0-10.5 L [id number]:34:00* Test Item Value Reference Range Interpretation Comments PHOSPHOROUS (test code = PHOS) 2.8 MG/DL 2.5-4.9 N [id number]:34:00* Test Item Value Reference Range Interpretation Comments MAGNESIUM (test code = MAG) 2.10 mg/dL 1.8-2.4 N CALCIUM [id number]:34:00* Test Item Value Reference Range Interpretation Comments CALCIUM IONIZED (test code = GAURAV) 1.12 MMOL/L 1.12-1.32 N BASIC METABOLIC [id number] 01:09:00* Test Item Value Reference Range Interpretation Comments SODIUM (test code = NA) mEq/L 134-147 POTASSIUM (test code = K) mEq/L 3.4-5.0 CHLORIDE (test code = CL) mEq/L 100-108 CARBON DIOXIDE (test code = CO2) mEq/L 21-33 ANION GAP (test code = GAP) 0-20 GLUCOSE (test code = GLU) mg/dL 70-110 BLOOD UREA NITROGEN (test code = BUN) mg/dL 7-18 GLOMERULAR FILTRATION RATE (test code = GFR) 90-95 CREATININE (test code = CREAT) mg/dL 0.6-1.3 CALCIUM (test code = CA) mg/dL 8.0-10.5 [id number] 01:09:00* Test Item Value Reference Range Interpretation Comments PHOSPHOROUS (test code = PHOS) MG/DL 2.5-4.9 [id number] 01:09:00* Test Item Value Reference Range Interpretation Comments MAGNESIUM (test code = MAG) mg/dL 1.8-2.4 CALCIUM [id number] 01:09:00* Test Item Value Reference Range Interpretation Comments CALCIUM IONIZED (test code = GAURAV) 1.12 MMOL/L 1.12-1.32 N CBC W/AUTO [id number] 01:08:00* Test Item Value Reference Range Interpretation Comments WHITE BLOOD CELL (test code = WBC) 8.21 x10 3/uL 4.5-11.0 N RED BLOOD CELL (test code = RBC) 4.59 x10 6/uL 4.00-5.60 N HEMOGLOBIN (test code = HGB) 15.2 g/dL 12.5-16.9 N HEMATOCRIT (test code = HCT) 44.6 % 37.5-50.7 N MEAN CELL VOLUME (test code = MCV) 97.2 fL 81.0-99.0 N MEAN CELL HGB (test code = MCH) 33.1 pg 27.0-33.0 H MEAN CELL HGB CONCETRATION (test code = MCHC) 34.1 g/dL 33.0-37. 0 N RED CELL DISTRIBUTION WIDTH CV (test code = RDW) 13.7 % 11.5- 14.5 N RED CELL DISTRIBUTION WIDTH SD (test code = RDW-SD) 49.1 fL 37 .0-54.0 N PLATELET COUNT (test code = PLT) 220 x10 3/uL 150-400 N MEAN PLATELET VOLUME (test code = MPV) 9.9 fL 7.0-9.0 H NEUTROPHIL % (test code = NT%) 51.5 % 56.0-77.0 L IMMATURE GRANULOCYTE % (test code = IG%) 0.2 % 0.0-2.0 N LYMPHOCYTE % (test code = LY%) 30.9 % 14.0-32.0 N MONOCYTE % (test code = MO%) 14.3 % 4.8-9.0 H EOSINOPHIL % (test code = EO%) 2.7 % 0.3-3.7 N BASOPHIL % (test code = BA%) 0.4 % 0.0-2.0 N NUCLEATED RBC % (test code = NRBC%) 0.0 % 0-0 N NEUTROPHIL # (test code = NT#) 4.23 x10 3/uL 2.0-7.6 N IMMATURE GRANULOCYTE # (test code = IG#) 0.02 x10 3/uL 0.00-0.03 N LYMPHOCYTE # (test code = LY#) 2.54 x10 3/uL 1.0-3.8 N MONOCYTE # (test code = MO#) 1.17 x10 3/uL 0.1-0.8 H EOSINOPHIL # (test code = EO#) 0.22 x10 3/uL 0.0-0.2 H BASOPHIL # (test code = BA#) 0.03 x10 3/uL 0.0-0.2 N NUCLEATED RBC # (test code = NRBC#) 0.00 x10 3/uL 0.0-0.1 N MANUAL DIFF REQUIRED (test code = MDIFF) NO [id number] 23:30:00* Test Item Value Reference Range Interpretation Comments GLUBED (test code = GLUBED) 94 MG/DL 70-110 N Performed by certified well flow operator at [facility] ARTERIAL THROMBOPHILIA [id number] 16:00:00* Test Item Value Reference Range Interpretation Comments PROTHROMBIN 3 UNTRANSLATED (test code = [id number]) PROTHROMBIN TIME PATIENT (test code = PTP) 11.7 SECONDS 9.3-12.9 N INTERNATIONAL NORMAL RATIO (test code = INR) 1.1 0.8-1.2 N TARGET INR BY INDICATION Indication INR1. Prophylaxis of venous thrombosis 2.0 - 3.0 (orthopedic surgery), Prophylaxis of venous thrombosis (other than high-risk surgery), Treatment of Deep Vein Thrombosis/Pulmonary Embolism, Prevention of systemic embolism - Tissue heart valves, Acute Myocardial Infarction (to prevent systemic embolism), Valvular heart disease, Atrial Fibrillation, Bileaflet mechanical valve in aortic position.2. Mechanical prosthetic valves (high risk), 2.5 - 3.5 Presence of Lupus Anticoagulant or Antiphospholipid Antibodies, Prevention of systemic embolism - Acute Myocardial Infarction (to prevent recurrent infarct). THROMBOPLASTIN TIME PARTIAL (test code = PTT) 26.2 Seconds 25.0-39. 5 N Therapeutic Range: 50.4 - 88.3 Seconds Effective 06/10/2018 PTT 1:1 MIX SERVICE OBSERVER (test code = PTTMIX2) SECS PT 1:2 MIX (test code = PTMIX2) SECS RVVT PATIENT (test code = RVVTPAT) ACTIVATED PROT C RESISTANCE (test code = APC) SILICA CLOTTING TIME (test code = SILCLOT) PROTEIN S FREE (test code = PROTSFR) % LIZET IGG (test code = ACAG) LIZET IGA (test code = ACAA) LIZET IGM (test code = ACAM) QXFP-9-OOSTN I IGM (test code = GPIIGM) SMU <20 IIOZ-4-CNWXG I IGG (test code = GPIIGG) UNITS <20 WGGN-8-JHWOB I IGA (test code = GPIIGA) 0.0-20.0 HOMOCYSTEINE (test code = HOMOCY) 10.2 umol/L 3.2-10.7 N [id number] 16:00:00* Test Item Value Reference Range Interpretation Comments FIBRINOGEN (test code = FIB) 368 MG/DL 160-450 N Excess administration of anticoagulants and/or FibrinDegradation Products may affect Fibrinogen value. FACTOR [id number] 16:00:00* Test Item Value Reference Range Interpretation Comments FACTOR VII (test code = FAC7) % ANTITHROMBIN III (ATIII)2019-08-24 16:00:00* Test Item Value Reference Range Interpretation Comments ANTITHROMBIN III (ATIII) (test code = AT3) PROTEIN C [id number] 16:00:00* Test Item Value Reference Range Interpretation Comments PROTEIN C FUNCTIONAL (test code = PROTCFN) % PROTEIN C [id number] 16:00:00* Test Item Value Reference Range Interpretation Comments PROTEIN C ANTIGENIC (test code = PROTCAG) PROTEIN S [id number] 16:00:00* Test Item Value Reference Range Interpretation Comments PROTEIN S FUNC (test code = PROTSFN) ARTERIAL THROMBOPHILIA [id number] 15:33:00* Test Item Value Reference Range Interpretation Comments PROTHROMBIN 3 UNTRANSLATED (test code = [id number]) PROTHROMBIN TIME PATIENT (test code = PTP) 11.7 SECONDS 9.3-12.9 N INTERNATIONAL NORMAL RATIO (test code = INR) 1.1 0.8-1.2 N TARGET INR BY INDICATION Indication INR1. Prophylaxis of venous thrombosis 2.0 - 3.0 (orthopedic surgery), Prophylaxis of venous thrombosis (other than high-risk surgery), Treatment of Deep Vein Thrombosis/Pulmonary Embolism, Prevention of systemic embolism - Tissue heart valves, Acute Myocardial Infarction (to prevent systemic embolism), Valvular heart disease, Atrial Fibrillation, Bileaflet mechanical valve in aortic position.2. Mechanical prosthetic valves (high risk), 2.5 - 3.5 Presence of Lupus Anticoagulant or Antiphospholipid Antibodies, Prevention of systemic embolism - Acute Myocardial Infarction (to prevent recurrent infarct). THROMBOPLASTIN TIME PARTIAL (test code = PTT) 26.2 Seconds 25.0-39. 5 N Therapeutic Range: 50.4 - 88.3 Seconds Effective 06/10/2018 PTT 1:1 MIX SERVICE OBSERVER (test code = PTTMIX2) SECS PTT 1:3 MIX (test code = PTTMIX3) SECS PT 1:2 MIX (test code = PTMIX2) SECS RVVT PATIENT (test code = RVVTPAT) ACTIVATED PROT C RESISTANCE (test code = APC) SILICA CLOTTING TIME (test code = SILCLOT) PROTEIN S FREE (test code = PROTSFR) % LIZET IGG (test code = ACAG) LIZET IGA (test code = ACAA) LIZET IGM (test code = ACAM) DSCH-2-ZFQLF I IGM (test code = GPIIGM) SMU <20 NXYH-0-OEUON I IGG (test code = GPIIGG) UNITS <20 MIVY-3-TBUWI I IGA (test code = GPIIGA) 0.0-20.0 HOMOCYSTEINE (test code = HOMOCY) 10.2 umol/L 3.2-10.7 N [id number] 15:33:00* Test Item Value Reference Range Interpretation Comments FIBRINOGEN (test code = FIB) 368 MG/DL 160-450 N Excess administration of anticoagulants and/or FibrinDegradation Products may affect Fibrinogen value. FACTOR [id number] 15:33:00* Test Item Value Reference Range Interpretation Comments FACTOR VII (test code = FAC7) % ANTITHROMBIN III (ATIII)2019-08-24 15:33:00* Test Item Value Reference Range Interpretation Comments ANTITHROMBIN III (ATIII) (test code = AT3) PROTEIN C [id number] 15:33:00* Test Item Value Reference Range Interpretation Comments PROTEIN C FUNCTIONAL (test code = PROTCFN) % PROTEIN C [id number] 15:33:00* Test Item Value Reference Range Interpretation Comments PROTEIN C ANTIGENIC (test code = PROTCAG) PROTEIN S [id number] 15:33:00* Test Item Value Reference Range Interpretation Comments PROTEIN S FUNC (test code = PROTSFN) ARTERIAL THROMBOPHILIA [id number] 15:16:00* Test Item Value Reference Range Interpretation Comments PROTHROMBIN 3 UNTRANSLATED (test code = [id number]) PROTHROMBIN TIME PATIENT (test code = PTP) SECONDS 9.3-12.9 INTERNATIONAL NORMAL RATIO (test code = INR) 0.8-1.2 THROMBOPLASTIN TIME PARTIAL (test code = PTT) Seconds 25.0-39. 5 PTT 1:1 MIX SERVICE OBSERVER (test code = PTTMIX2) SECS PTT 1:3 MIX (test code = PTTMIX3) SECS PT 1:2 MIX (test code = PTMIX2) SECS RVVT PATIENT (test code = RVVTPAT) ACTIVATED PROT C RESISTANCE (test code = APC) SILICA CLOTTING TIME (test code = SILCLOT) PROTEIN S FREE (test code = PROTSFR) % LIZET IGG (test code = ACAG) LIZET IGA (test code = ACAA) LIZET IGM (test code = ACAM) MBYS-2-TFCCE I IGM (test code = GPIIGM) SMU <20 FSBA-7-DFLMV I IGG (test code = GPIIGG) UNITS <20 JXPW-0-RRNYW I IGA (test code = GPIIGA) 0.0-20.0 HOMOCYSTEINE (test code = HOMOCY) 10.2 umol/L 3.2-10.7 N [id number] 15:16:00* Test Item Value Reference Range Interpretation Comments FIBRINOGEN (test code = FIB) MG/DL 160-450 FACTOR [id number] 15:16:00* Test Item Value Reference Range Interpretation Comments FACTOR VII (test code = FAC7) % ANTITHROMBIN III (ATIII)2019-08-24 15:16:00* Test Item Value Reference Range Interpretation Comments ANTITHROMBIN III (ATIII) (test code = AT3) PROTEIN C [id number] 15:16:00* Test Item Value Reference Range Interpretation Comments PROTEIN C FUNCTIONAL (test code = PROTCFN) % PROTEIN C [id number] 15:16:00* Test Item Value Reference Range Interpretation Comments PROTEIN C ANTIGENIC (test code = PROTCAG) PROTEIN S [id number] 15:16:00* Test Item Value Reference Range Interpretation Comments PROTEIN S FUNC (test code = PROTSFN) SED RATE [id number] 14:17:00* Test Item Value Reference Range Interpretation Comments SED RATE WESTERGREN (test code = SEDW) 5 mm/hr 0-15 N C REACTIVE [id number] 13:41:00* Test Item Value Reference Range Interpretation Comments C REACTIVE PROTEIN (test code = CRP) 27.6 MG/L 0.0-2.9 H RHEUMATOID FACTOR [id number] 13:41:00* Test Item Value Reference Range Interpretation Comments RHEUMATOID FACTOR SCREEN (test code = RA) ANTINUCLEAR ANTIBODIES [id number] 13:41:00* Test Item Value Reference Range Interpretation Comments KRYSTAL SCREEN (test code = ANASCR) BASIC METABOLIC [id number] 13:33:00* Test Item Value Reference Range Interpretation Comments SODIUM (test code = NA) 140 mEq/L 134-147 N POTASSIUM (test code = K) 4.4 mEq/L 3.4-5.0 N CHLORIDE (test code = CL) 112 mEq/L 100-108 H CARBON DIOXIDE (test code = CO2) 24 mEq/L 21-33 N ANION GAP (test code = GAP) 8 0-20 N GLUCOSE (test code = GLU) 85 mg/dL 70-110 N BLOOD UREA NITROGEN (test code = BUN) 11 mg/dL 7-18 N GLOMERULAR FILTRATION RATE (test code = GFR) 78.5 90-95 L Units of measure = ml/min/1.73 m2 CREATININE (test code = CREAT) 1.0 mg/dL 0.6-1.3 N CALCIUM (test code = CA) 7.5 mg/dL 8.0-10.5 L CBC W/AUTO [id number] 13:18:00* Test Item Value Reference Range Interpretation Comments WHITE BLOOD CELL (test code = WBC) 8.21 x10 3/uL 4.5-11.0 N RED BLOOD CELL (test code = RBC) 4.67 x10 6/uL 4.00-5.60 N HEMOGLOBIN (test code = HGB) 15.4 g/dL 12.5-16.9 N HEMATOCRIT (test code = HCT) 44.9 % 37.5-50.7 N MEAN CELL VOLUME (test code = MCV) 96.1 fL 81.0-99.0 N MEAN CELL HGB (test code = MCH) 33.0 pg 27.0-33.0 N MEAN CELL HGB CONCETRATION (test code = MCHC) 34.3 g/dL 33.0-37. 0 N RED CELL DISTRIBUTION WIDTH CV (test code = RDW) 14.1 % 11.5- 14.5 N RED CELL DISTRIBUTION WIDTH SD (test code = RDW-SD) 49.5 fL 37 .0-54.0 N PLATELET COUNT (test code = PLT) 204 x10 3/uL 150-400 N MEAN PLATELET VOLUME (test code = MPV) 9.9 fL 7.0-9.0 H NEUTROPHIL % (test code = NT%) 62.4 % 56.0-77.0 N IMMATURE GRANULOCYTE % (test code = IG%) 0.4 % 0.0-2.0 N LYMPHOCYTE % (test code = LY%) 21.8 % 14.0-32.0 N MONOCYTE % (test code = MO%) 12.1 % 4.8-9.0 H EOSINOPHIL % (test code = EO%) 2.9 % 0.3-3.7 N BASOPHIL % (test code = BA%) 0.4 % 0.0-2.0 N NUCLEATED RBC % (test code = NRBC%) 0.0 % 0-0 N NEUTROPHIL # (test code = NT#) 5.13 x10 3/uL 2.0-7.6 N IMMATURE GRANULOCYTE # (test code = IG#) 0.03 x10 3/uL 0.00-0.03 N LYMPHOCYTE # (test code = LY#) 1.79 x10 3/uL 1.0-3.8 N MONOCYTE # (test code = MO#) 0.99 x10 3/uL 0.1-0.8 H EOSINOPHIL # (test code = EO#) 0.24 x10 3/uL 0.0-0.2 H BASOPHIL # (test code = BA#) 0.03 x10 3/uL 0.0-0.2 N NUCLEATED RBC # (test code = NRBC#) 0.00 x10 3/uL 0.0-0.1 N MANUAL DIFF REQUIRED (test code = MDIFF) NO [id number] 06:54:00* Test Item Value Reference Range Interpretation Comments GLUBED (test code = GLUBED) 106 MG/DL 70-110 N Performed by certified well flow operator at [facility] COMPREHENSIVE METABOLIC [id number] 06:25:00* Test Item Value Reference Range Interpretation Comments SODIUM (test code = NA) 139 mEq/L 134-147 N POTASSIUM (test code = K) 3.8 mEq/L 3.4-5.0 CHLORIDE (test code = CL) 111 mEq/L 100-108 H CARBON DIOXIDE (test code = CO2) 22 mEq/L 21-33 N ANION GAP (test code = GAP) 10 0-20 N GLUCOSE (test code = GLU) 97 mg/dL 70-110 N BLOOD UREA NITROGEN (test code = BUN) 10 mg/dL 7-18 N GLOMERULAR FILTRATION RATE (test code = GFR) 88.6 90-95 L Units of measure = ml/min/1.73 m2 CREATININE (test code = CREAT) 0.9 mg/dL 0.6-1.3 N TOTAL PROTEIN (test code = PROT) 5.8 g/dL 6.4-8.2 L ALBUMIN (test code = ALB) 2.30 g/dL 3.4-5.0 L CALCIUM (test code = CA) 7.4 mg/dL 8.0-10.5 L BILIRUBIN TOTAL (test code = BILT) 0.4 MG/DL <1.5 N SGOT/AST (test code = AST) 42 IUnit/L 15-37 H SGPT/ALT (test code = ALT) 47 IUnit/L 15-65 N ALKALINE PHOSPHATASE TOTAL (test code = ALKP) 87 IUnit/L 20-125 N COMMENTS: Fasting in AMLIPID PROFILE (CORONARY RISK)2019-08-24 06:25:00* Test Item Value Reference Range Interpretation Comments TRIGLYCERIDES (test code = TRIG) 168 mg/dL 40-150 H CHOLESTEROL (test code = CHOL) 173 mg/dL <200 CHOLESTEROL/HDL RATIO (test code = CHOLHDL) 5.77 RATIO 3.43-4.97 H RISK ASSOCIATED WITH CHOL/HDL RATIOS: RISK MALE FEMALE1/2 AVERAGE 3.43 3.27AVERAGE 4.97 4.442X AVERAGE 9.55 7.053X AVERAGE 23.39 11.04 NOTE THAT THE REFERENCE VALUE IS RELATEDTO RISK LEVELS RECOMMENDED BY THE NATL.HEART, LUNG, AND BLOOD INST. HDL CHOLESTEROL (test code = HDL) 30.0 mg/dL 32-72 L LIPOPROTEIN LDL (test code = LDL) 121 mg/dL 0-100 H <100 [id number] NEAR OPTIMAL/ABOVE [id number] HIGH>UH=838 VERY HIGH*Guidelines provided by the National Cholesterol EducationProgram Adult Treatment Panel III COMMENTS: Fasting in [id number] 06:25:00* Test Item Value Reference Range Interpretation Comments PHOSPHOROUS (test code = PHOS) 2.4 MG/DL 2.5-4.9 L COMMENTS: Fasting in [id number] 06:25:00* Test Item Value Reference Range Interpretation Comments MAGNESIUM (test code = MAG) 2.40 mg/dL 1.8-2.4 N COMMENTS: Fasting in [id number] 06:25:00* Test Item Value Reference Range Interpretation Comments TROPONIN-I (test code = TROPI) < 0.015 ng/mL 0.000-0.045 N Negative: <= 0.045 Positive: >= 0.046 Correlation with serial results, other cardiac markers andclinical findings is necessary to determine the clinicalsignificance of this result. Results using different methodologies should not be comparedto one another as quantitative results may vary by method. COMMENTS: Fasting in AMCALCIUM [id number] 06:25:00* Test Item Value Reference Range Interpretation Comments CALCIUM IONIZED (test code = GAURAV) 1.13 MMOL/L 1.12-1.32 N COMMENTS: Fasting in MYNKUU0N%2019-08-24 06:11:00* Test Item Value Reference Range Interpretation Comments HGBA1C% (test code = HGBA1C%) 5.6 %A1C 4.8-6.0 N COMPREHENSIVE METABOLIC [id number] 06:05:00* Test Item Value Reference Range Interpretation Comments SODIUM (test code = NA) mEq/L 134-147 POTASSIUM (test code = K) mEq/L 3.4-5.0 CHLORIDE (test code = CL) mEq/L 100-108 CARBON DIOXIDE (test code = CO2) mEq/L 21-33 ANION GAP (test code = GAP) 0-20 GLUCOSE (test code = GLU) mg/dL 70-110 BLOOD UREA NITROGEN (test code = BUN) mg/dL 7-18 GLOMERULAR FILTRATION RATE (test code = GFR) 90-95 CREATININE (test code = CREAT) mg/dL 0.6-1.3 TOTAL PROTEIN (test code = PROT) g/dL 6.4-8.2 ALBUMIN (test code = ALB) g/dL 3.4-5.0 CALCIUM (test code = CA) mg/dL 8.0-10.5 BILIRUBIN TOTAL (test code = BILT) MG/DL <1.5 SGOT/AST (test code = AST) IUnit/L 15-37 SGPT/ALT (test code = ALT) IUnit/L 15-65 ALKALINE PHOSPHATASE TOTAL (test code = ALKP) IUnit/L 20-125 COMMENTS: Fasting in AMLIPID PROFILE (CORONARY RISK)2019-08-24 06:05:00* Test Item Value Reference Range Interpretation Comments TRIGLYCERIDES (test code = TRIG) mg/dL 40-150 CHOLESTEROL (test code = CHOL) mg/dL <200 CHOLESTEROL/HDL RATIO (test code = CHOLHDL) RATIO 3.43-4.97 HDL CHOLESTEROL (test code = HDL) mg/dL 32-72 LIPOPROTEIN LDL (test code = LDL) mg/dL 0-100 COMMENTS: Fasting in [id number] 06:05:00* Test Item Value Reference Range Interpretation Comments PHOSPHOROUS (test code = PHOS) MG/DL 2.5-4.9 COMMENTS: Fasting in [id number] 06:05:00* Test Item Value Reference Range Interpretation Comments MAGNESIUM (test code = MAG) mg/dL 1.8-2.4 COMMENTS: Fasting in [id number] 06:05:00* Test Item Value Reference Range Interpretation Comments TROPONIN-I (test code = TROPI) ng/mL 0.000-0.045 COMMENTS: Fasting in AMCALCIUM [id number] 06:05:00* Test Item Value Reference Range Interpretation Comments CALCIUM IONIZED (test code = GAURAV) 1.13 MMOL/L 1.12-1.32 N COMMENTS: Fasting in AMCBC W/AUTO [id number] 05:51:00* Test Item Value Reference Range Interpretation Comments WHITE BLOOD CELL (test code = WBC) 6.96 x10 3/uL 4.5-11.0 N RED BLOOD CELL (test code = RBC) 4.72 x10 6/uL 4.00-5.60 N HEMOGLOBIN (test code = HGB) 15.5 g/dL 12.5-16.9 N HEMATOCRIT (test code = HCT) 45.5 % 37.5-50.7 N MEAN CELL VOLUME (test code = MCV) 96.4 fL 81.0-99.0 N MEAN CELL HGB (test code = MCH) 32.8 pg 27.0-33.0 N MEAN CELL HGB CONCETRATION (test code = MCHC) 34.1 g/dL 33.0-37. 0 N RED CELL DISTRIBUTION WIDTH CV (test code = RDW) 13.8 % 11.5- 14.5 N RED CELL DISTRIBUTION WIDTH SD (test code = RDW-SD) 49.0 fL 37 .0-54.0 N PLATELET COUNT (test code = PLT) 198 x10 3/uL 150-400 N MEAN PLATELET VOLUME (test code = MPV) 9.6 fL 7.0-9.0 H NEUTROPHIL % (test code = NT%) 53.0 % 56.0-77.0 L IMMATURE GRANULOCYTE % (test code = IG%) 0.3 % 0.0-2.0 N LYMPHOCYTE % (test code = LY%) 28.9 % 14.0-32.0 N MONOCYTE % (test code = MO%) 13.9 % 4.8-9.0 H EOSINOPHIL % (test code = EO%) 3.3 % 0.3-3.7 N BASOPHIL % (test code = BA%) 0.6 % 0.0-2.0 N NUCLEATED RBC % (test code = NRBC%) 0.0 % 0-0 N NEUTROPHIL # (test code = NT#) 3.69 x10 3/uL 2.0-7.6 N IMMATURE GRANULOCYTE # (test code = IG#) 0.02 x10 3/uL 0.00-0.03 N LYMPHOCYTE # (test code = LY#) 2.01 x10 3/uL 1.0-3.8 N MONOCYTE # (test code = MO#) 0.97 x10 3/uL 0.1-0.8 H EOSINOPHIL # (test code = EO#) 0.23 x10 3/uL 0.0-0.2 H BASOPHIL # (test code = BA#) 0.04 x10 3/uL 0.0-0.2 N NUCLEATED RBC # (test code = NRBC#) 0.00 x10 3/uL 0.0-0.1 N MANUAL DIFF REQUIRED (test code = MDIFF) NO - CT HEAD/BRAIN W/O [id number] 05:10:00 Name: MELVIN ROWE : 1965 Age/S: 54 / M [address] [place] [address] Unit #: [id number] Loc: [place] [address] Phys: Tran Garland NP Acct: [id number] Dis Date: Status: ADM IN PHONE #: [phone] Exam Date: 08/24/2019 0451 FAX #: [phone] Reason: FOLLOW UP STROKE EXAMS: CPT CODE: [id number] CT HEAD/BRAIN W/O CONT [id number] STUDY: - CT HEAD/BRAIN W/O CONT 08/24/2019 5:00 AM Ordering Physician: Tran Garland NP Patient Name: MELVIN ROWE MR: [id number] : 1965; Age: 54 years y/o Male Clinical Indication: FOLLOW UP STROKE Comparison: 08/23/2019 TECHNIQUE: Multiple contiguous transaxial noncontrast CT images were obtained through the head. Coronal and sagittal reformatted images were prepared. CT imaging performed at this location utilizes radiation dose optimization techniques which include one or more of the following: -Automated exposure control -Adjustment of the mA and/or kV according to patient size -Use of iterative reconstruction technique CT Radiation Dose DLP: 1068.10 mGy-cm FINDINGS: BRAIN PARENCHYMA: Minimal diffuse age- appropriate cerebral atrophy. Increasing low-attenuation seen centrally in the right MCA distribution greatest in the right temporal lobe, right frontal lobe, and right insula/basal ganglia consistent with known evolving acute right MCA distribution infarction. Increasing sulcal effacement is present consistent with edema surrounding the infarction. Mild residual density within the right MCA may represent residual t hrombosis, but has decreased since the prior examination. No acute intracranial hemorrhage, extra-axial fluid collection, or midline shift is appreciated.. VENTRICLES: The lateral ventricles, third ventricle, fourth ventricle, and basilar cisterns are appropriate for degree of at rophy present. PARANASAL SINUSES: Mild diffuse mucoperiosteal thic kening in the ethmoid sinus and the right maxillary sinus. The visualized portions PAGE 1 Signed Report (CON TINUED) Name: MELVIN ROWE : 1965 Age/S: 54 / M [address] [place] [address] Blvd Unit #: [id number] Loc: [place] [address] Phys: Tran Jay SERVICE OBSERVER Acct: [id number] Dis Date: Status: ADM IN PH ONE #: [phone] Exam Date: 08/24/2019 0451 FAX #: Reason: FOLLOW UP STROKE EXA MS: CPT CODE: [id number] CT HE AD/BRAIN W/O CONT 10065 <Continued> of the remaining paranasal sinuses are clear. MASTOIDS: Clear. ORBITS: The visualized portions of the orbits are normal. SOFT TISSUES: No significant abnormality. SKULL: No acute fracture or suspicious osseous lesion. IMPRESSION: Minimal diffuse age-appropriate cerebral atrophy. Evolving acute right MCA distribution infarction without acute intracranial hemorrhage or midline shift as above-described. Mild residual density within the right MCA may represent residual thrombosis, but has decreased since the prior examination. Mild chronic sinusitis. at 0510 Report ed and signed by: Abdi Patel M.D. CC: Tran Garland SERVICE OBSERVER; Tori Ayers DO; Storm Woods MD Technologist:RT Justin(R) CTDI: DLP: Trnscb Date/Time: 08/24/2019 (0510) [email or web address] Orig Print D/T: S: 08/24/2019 (0513) PAGE 2 Signed Report [id number] 00:30:00* Test Item Value Reference Range Interpretation Comments GLUBED (test code = GLUBED) 108 MG/DL 70-110 N Performed by certified well flow operator at [facility] DRUGS OF ABUSE SCREEN [id number] 20:46:00* Test Item Value Reference Range Interpretation Comments URN COCAINE (test code = COCAURN) NEGATIVE NEGATIVE URN CANNABINOIDS (test code = CANNABURN) NEGATIVE NEGATIVE URN AMPHETAMINE (test code = AMPHETURN) NEGATIVE NEGATIVE URN BARBITURATE (test code = BARBITURN) NEGATIVE NEGATIVE URN BENZODIAZEPINE (test code = BENZOURN) NEGATIVE NEGATIVE Cut-off value:200 ng/mL URN OPIATES (test code = OPIATURN) NEGATIVE NEGATIVE Cut-off value:2000 ng/mL URN PHENCYCLIDINE (PCP) (test code = PHENCURN) NEGATIVE NEGATIV E Cutoffs:Barbiturates 200 ng/mLBenzodiazepines 200 ng/mLTHC Cannabinoids 50 ng/mLOpiates(Morphine) 2000 ng/mLAmphetamine 1000 ng/mLCocaine 300 ng/mLPCP phencyclidine 25 ng/mL Unconfirmed screening results shouldnot be used for non-medical purposes. URINALYSIS [id number] 20:40:00* Test Item Value Reference Range Interpretation Comments UA COLOR (test code = COLU) YELLOW YEL/STRAW UA APPEARANCE (test code = APPU) CLEAR CLEAR UA GLUCOSE DIPSTICK (test code = DGLUU) NEGATIVE NEGATIVE UA BILIRUBIN DIPSTICK (test code = BILU) NEGATIVE NEGATIVE UA KETONE DIPSTICK (test code = KETU) TRACE NEGATIVE A UA SPECIFIC GRAVITY (test code = SGU) 1.056 1.005-1.030 H UA BLOOD DIPSTICK (test code = YAYA) NEGATIVE NEGATIVE UA PH DIPSTICK (test code = CIERA) 5.0 5.0-7.0 N UA PROTEIN DIPSTICK (test code = PROU) NEGATIVE NEGATIVE UA UROBILINIOGEN DIPSTICK (test code = URO) 0.2 mg/dL 0.2-1.0 UA NITRITE DIPSTICK (test code = JANUSZ) NEGATIVE NEGATIVE UA LEUKOCYTE ESTERASE DIPSTICK (test code = LEUU) NEGATIVE NEGA TIVE UA RBC (test code = RBCU) 0-3 RBC/HPF 0-3 UA WBC NO REFLEX (test code = WBCUCL) 0-3 WBC/HPF 0-3 UA BACTERIA (test code = BACU) TRACE /HPF NONE SEEN UA SQUAMOUS CELLS (test code = SQU) NONE SEEN /HPF NONE SEEN UA MUCUS (test code = MUCU) TRACE /LPF NONE SEEN BASIC METABOLIC [id number] 17:42:00* Test Item Value Reference Range Interpretation Comments SODIUM (test code = NA) 137 mEq/L 134-147 N POTASSIUM (test code = K) 5.0 mEq/L 3.4-5.0 N SP ECIMEN SLIGHTLY HEMOLYZED.Results known to be adversely affected by hemolysis are: Potassium Magnesium LDH Phosphorus CHLORIDE (test code = CL) 110 mEq/L 100-108 H CARBON DIOXIDE (test code = CO2) 21 mEq/L 21-33 N ANION GAP (test code = GAP) 11 0-20 N GLUCOSE (test code = GLU) 103 mg/dL 70-110 N BLOOD UREA NITROGEN (test code = BUN) 11 mg/dL 7-18 N GLOMERULAR FILTRATION RATE (test code = GFR) 88.6 90-95 L Units of measure = ml/min/1.73 m2 CREATININE (test code = CREAT) 0.9 mg/dL 0.6-1.3 N CALCIUM (test code = CA) 7.5 mg/dL 8.0-10.5 L LIPID PROFILE (CORONARY RISK)2019-08-23 17:42:00* Test Item Value Reference Range Interpretation Comments TRIGLYCERIDES (test code = TRIG) 178 mg/dL 40-150 H CHOLESTEROL (test code = CHOL) 193 mg/dL <200 CHOLESTEROL/HDL RATIO (test code = CHOLHDL) 6.43 RATIO 3.43-4.97 H RISK ASSOCIATED WITH CHOL/HDL RATIOS: RISK MALE FEMALE1/2 AVERAGE 3.43 3.27AVERAGE 4.97 4.442X AVERAGE 9.55 7.053X AVERAGE 23.39 11.04 NOTE THAT THE REFERENCE VALUE IS RELATEDTO RISK LEVELS RECOMMENDED BY THE NATL.HEART, LUNG, AND BLOOD INST. HDL CHOLESTEROL (test code = HDL) 30.0 mg/dL 32-72 L LIPOPROTEIN LDL (test code = LDL) 134 mg/dL 0-100 H <100 [id number] NEAR OPTIMAL/ABOVE [id number] HIGH>VC=385 VERY HIGH*Guidelines provided by the National Cholesterol EducationProgram Adult Treatment Panel III HEPATIC FUNCTION [id number] 17:42:00* Test Item Value Reference Range Interpretation Comments TOTAL PROTEIN (test code = PROT) 6.1 g/dL 6.4-8.2 L ALBUMIN (test code = ALB) 2.50 g/dL 3.4-5.0 L BILIRUBIN TOTAL (test code = BILT) 0.5 MG/DL <1.5 N BILIRUBIN DIRECT (test code = BILD) < 0.10 MG/DL 0.0-0.30 N BILIRUBIN INDIRECT (test code = BILIND) 0.40 MG/DL SGOT/AST (test code = AST) 52 IUnit/L 15-37 H SGPT/ALT (test code = ALT) 45 IUnit/L 15-65 N ALKALINE PHOSPHATASE TOTAL (test code = ALKP) 88 IUnit/L 20-125 N [id number] 17:42:00* Test Item Value Reference Range Interpretation Comments PHOSPHOROUS (test code = PHOS) 3.3 MG/DL 2.5-4.9 N [id number] 17:42:00* Test Item Value Reference Range Interpretation Comments LIPASE (test code = LIP) 85 IUnit/L 73-393 N [id number] 17:42:00* Test Item Value Reference Range Interpretation Comments MAGNESIUM (test code = MAG) 2.20 mg/dL 1.8-2.4 N [id number] 17:42:00* Test Item Value Reference Range Interpretation Comments ALCOHOL (test code = ALC) < 0.003 G/dL <0.003 Et hyl Alcohol Interpretation: 0.100 gm/dL - Legally Intoxicated 0.300-0.400 gm/dL - Severely Intoxicated >0.400 gm/dL - Potentially LethalResults are for Medical purposes only, and not for Legal orEmployment evaluation purposes. CALCIUM [id number] 17:42:00* Test Item Value Reference Range Interpretation Comments CALCIUM IONIZED (test code = GAURAV) 1.00 MMOL/L 1.12-1.32 L [id number] 17:41:00* Test Item Value Reference Range Interpretation Comments AMMONIA (test code = AMM) 42 umol/L 0-35 H BASIC METABOLIC [id number] 17:37:00* Test Item Value Reference Range Interpretation Comments SODIUM (test code = NA) 137 mEq/L 134-147 N POTASSIUM (test code = K) 5.0 mEq/L 3.4-5.0 N SP ECIMEN SLIGHTLY HEMOLYZED.Results known to be adversely affected by hemolysis are: Potassium Magnesium LDH Phosphorus CHLORIDE (test code = CL) 110 mEq/L 100-108 H CARBON DIOXIDE (test code = CO2) 21 mEq/L 21-33 N ANION GAP (test code = GAP) 11 0-20 N GLUCOSE (test code = GLU) 103 mg/dL 70-110 N BLOOD UREA NITROGEN (test code = BUN) 11 mg/dL 7-18 N GLOMERULAR FILTRATION RATE (test code = GFR) 90-95 CREATININE (test code = CREAT) mg/dL 0.6-1.3 CALCIUM (test code = CA) 7.5 mg/dL 8.0-10.5 L LIPID PROFILE (CORONARY RISK)2019-08-23 17:37:00* Test Item Value Reference Range Interpretation Comments TRIGLYCERIDES (test code = TRIG) mg/dL 40-150 CHOLESTEROL (test code = CHOL) mg/dL <200 CHOLESTEROL/HDL RATIO (test code = CHOLHDL) RATIO 3.43-4.97 HDL CHOLESTEROL (test code = HDL) mg/dL 32-72 LIPOPROTEIN LDL (test code = LDL) mg/dL 0-100 HEPATIC FUNCTION [id number] 17:37:00* Test Item Value Reference Range Interpretation Comments TOTAL PROTEIN (test code = PROT) g/dL 6.4-8.2 ALBUMIN (test code = ALB) 2.50 g/dL 3.4-5.0 L BILIRUBIN TOTAL (test code = BILT) MG/DL <1.5 BILIRUBIN DIRECT (test code = BILD) MG/DL 0.0-0.30 SGOT/AST (test code = AST) IUnit/L 15-37 SGPT/ALT (test code = ALT) IUnit/L 15-65 ALKALINE PHOSPHATASE TOTAL (test code = ALKP) IUnit/L 20-125 [id number] 17:37:00* Test Item Value Reference Range Interpretation Comments PHOSPHOROUS (test code = PHOS) MG/DL 2.5-4.9 [id number] 17:37:00* Test Item Value Reference Range Interpretation Comments LIPASE (test code = LIP) IUnit/L 73-393 [id number] 17:37:00* Test Item Value Reference Range Interpretation Comments MAGNESIUM (test code = MAG) 2.20 mg/dL 1.8-2.4 N [id number] 17:37:00* Test Item Value Reference Range Interpretation Comments ALCOHOL (test code = ALC) G/dL <0.003 CALCIUM [id number] 17:37:00* Test Item Value Reference Range Interpretation Comments CALCIUM IONIZED (test code = GAURAV) 1.00 MMOL/L 1.12-1.32 L BASIC METABOLIC [id number] 17:30:00* Test Item Value Reference Range Interpretation Comments SODIUM (test code = NA) mEq/L 134-147 POTASSIUM (test code = K) mEq/L 3.4-5.0 CHLORIDE (test code = CL) mEq/L 100-108 CARBON DIOXIDE (test code = CO2) mEq/L 21-33 ANION GAP (test code = GAP) 0-20 GLUCOSE (test code = GLU) mg/dL 70-110 BLOOD UREA NITROGEN (test code = BUN) mg/dL 7-18 GLOMERULAR FILTRATION RATE (test code = GFR) 90-95 CREATININE (test code = CREAT) mg/dL 0.6-1.3 CALCIUM (test code = CA) mg/dL 8.0-10.5 LIPID PROFILE (CORONARY RISK)2019-08-23 17:30:00* Test Item Value Reference Range Interpretation Comments TRIGLYCERIDES (test code = TRIG) mg/dL 40-150 CHOLESTEROL (test code = CHOL) mg/dL <200 CHOLESTEROL/HDL RATIO (test code = CHOLHDL) RATIO 3.43-4.97 HDL CHOLESTEROL (test code = HDL) mg/dL 32-72 LIPOPROTEIN LDL (test code = LDL) mg/dL 0-100 HEPATIC FUNCTION [id number] 17:30:00* Test Item Value Reference Range Interpretation Comments TOTAL PROTEIN (test code = PROT) g/dL 6.4-8.2 ALBUMIN (test code = ALB) g/dL 3.4-5.0 BILIRUBIN TOTAL (test code = BILT) MG/DL <1.5 BILIRUBIN DIRECT (test code = BILD) MG/DL 0.0-0.30 SGOT/AST (test code = AST) IUnit/L 15-37 SGPT/ALT (test code = ALT) IUnit/L 15-65 ALKALINE PHOSPHATASE TOTAL (test code = ALKP) IUnit/L 20-125 [id number] 17:30:00* Test Item Value Reference Range Interpretation Comments PHOSPHOROUS (test code = PHOS) MG/DL 2.5-4.9 [id number] 17:30:00* Test Item Value Reference Range Interpretation Comments LIPASE (test code = LIP) IUnit/L 73-393 [id number] 17:30:00* Test Item Value Reference Range Interpretation Comments MAGNESIUM (test code = MAG) mg/dL 1.8-2.4 [id number] 17:30:00* Test Item Value Reference Range Interpretation Comments ALCOHOL (test code = ALC) G/dL <0.003 CALCIUM [id number] 17:30:00* Test Item Value Reference Range Interpretation Comments CALCIUM IONIZED (test code = GAURAV) 1.00 MMOL/L 1.12-1.32 L CBC W/AUTO [id number] 17:26:00* Test Item Value Reference Range Interpretation Comments WHITE BLOOD CELL (test code = WBC) 7.33 x10 3/uL 4.5-11.0 N RED BLOOD CELL (test code = RBC) 4.89 x10 6/uL 4.00-5.60 N HEMOGLOBIN (test code = HGB) 15.9 g/dL 12.5-16.9 N HEMATOCRIT (test code = HCT) 47.4 % 37.5-50.7 N MEAN CELL VOLUME (test code = MCV) 96.9 fL 81.0-99.0 N MEAN CELL HGB (test code = MCH) 32.5 pg 27.0-33.0 N MEAN CELL HGB CONCETRATION (test code = MCHC) 33.5 g/dL 33.0-37. 0 N RED CELL DISTRIBUTION WIDTH CV (test code = RDW) 14.0 % 11.5- 14.5 N RED CELL DISTRIBUTION WIDTH SD (test code = RDW-SD) 50.0 fL 37 .0-54.0 N PLATELET COUNT (test code = PLT) 220 x10 3/uL 150-400 N MEAN PLATELET VOLUME (test code = MPV) 9.5 fL 7.0-9.0 H NEUTROPHIL % (test code = NT%) 58.9 % 56.0-77.0 N IMMATURE GRANULOCYTE % (test code = IG%) 0.4 % 0.0-2.0 N LYMPHOCYTE % (test code = LY%) 22.9 % 14.0-32.0 N MONOCYTE % (test code = MO%) 15.3 % 4.8-9.0 H EOSINOPHIL % (test code = EO%) 2.2 % 0.3-3.7 N BASOPHIL % (test code = BA%) 0.3 % 0.0-2.0 N NUCLEATED RBC % (test code = NRBC%) 0.0 % 0-0 N NEUTROPHIL # (test code = NT#) 4.32 x10 3/uL 2.0-7.6 N IMMATURE GRANULOCYTE # (test code = IG#) 0.03 x10 3/uL 0.00-0.03 N LYMPHOCYTE # (test code = LY#) 1.68 x10 3/uL 1.0-3.8 N MONOCYTE # (test code = MO#) 1.12 x10 3/uL 0.1-0.8 H EOSINOPHIL # (test code = EO#) 0.16 x10 3/uL 0.0-0.2 N BASOPHIL # (test code = BA#) 0.02 x10 3/uL 0.0-0.2 N NUCLEATED RBC # (test code = NRBC#) 0.00 x10 3/uL 0.0-0.1 N MANUAL DIFF REQUIRED (test code = MDIFF) NO - XR CHEST 1 [id number] 16:23:00 FAX: Tran Garland NP [phone] Lares: St: ADM FAX: Sven Wild DO [phone] FAX: Storm Granda I [phone] Name: JAEMELVIN MIRANDA [facility] : 1965 Age/S: 54/M [address] [place] [address] Unit #: [id number] Loc: [place], [place] [address] Phys: Tran Garland NP Acct: [id number] Dis Date: Status: ADM IN ONE #: [phone] Exam Date: 08/23/2019 1612 FAX #: [phone] Reason: SOB EXAMS: CPT CODE: [id number] XR CHEST 1 V 71745 PROCEDURE: [facility] ST SINGLE VIEW 08/23/2019 at 1609 hours INDICATION: Shortness of br eath COMPARISON: 08/23/2019 at 0711 hours FINDINGS: A P portable chest obtained the patient semiupright. Lung volumes are low. EKG leads overlie the chest. Hazy increased opacities and increased inte rstitial lines likely accentuated by portable technique and low lung volum es. There is no consolidation. No pleural abnormality. Previous median sternotomy. The cardiomediastinal silhouette is stable allowing for proje ction and lung volumes. The pulmonary vasculature is indistinct. There i s no acute skeletal abnormality. IMPRESSION: Findings comp atible with interstitial edema. Cardiomegaly and pulmonary vascular con gestion favoring congestive failure/volume loading. Noncardiogenic caus es and inflammation in the differential. SL: ALYSSA at 1623 Reported and signed by: Cricket Collazo M.D. CC: Tran Garland SERVICE OBSERVER; Sven Ayers DO; Storm Woods MD Technologist: RT Yael(R) Trnscrd Date/Time/By: 08/23/2019 (7781) : By: Piyush Orig Print D/T: S: 08/23/2019 (1220) PAGE 1 Signed Report [id number] 12:40:00* Test Item Value Reference Range Interpretation Comments MAGNESIUM (test code = MAG) 2.30 mg/dL 1.8-2.4 N THYROID STIMULATING [id number] 12:40:00* Test Item Value Reference Range Interpretation Comments THYROID STIMULATING HORMONE (test code = TSH) 1.68 0.42-5.4 7 N Results in delmar- International Units/mL Coronavirus 2018 nCoV [id number] 09:06:00* Test Item Value Reference Range Interpretation Comments Coronavirus 2019 nCoV Bedside (test code = [id number]) Negative SPECIMEN COMMENTS: 2Is patient requiring admission or transfer? YIndication for rapid COVID-19 testing: Emergent Procedure- CTA [id number] 08:20:00 Name: MELVIN ROWE [facility] : 1965 Age[facility]S: 54 / M [address] [facility] Unit #: [id number] Loc: [place] [address] Phys: Rachna Dyson MD Acct: [id number] Di s Date: Status: REG ER PHONE #: [phone] Exam Date: 08/23/2019 0750 FAX #: Reason: Code stroke EXAMS: CPT CODE: [id number] CTA NECK 87134 HISTORY: Stroke. COMPARISON: None available. Location: TH. CTA NECK: 3-D images not available. 100 mL of Isovue-370. Automated e xposure control. NASCET criteria. The lung bases are clear. Depe ndent changes. The superior mediastinum is unremarkable. Thyroid glands are unremarkable. Mild DJD of the cervical spine. No pathologic adenopat hy. Patent airway. Unremarkable thyroid glands. Symmetrical fossa of Ro senmueller. The tonsils are enlarged. Visualized brain parenchyma is enh ancing homogeneously with effacement of the right frontal and temporal and parietal cortex suggestive of developing acute MCA infarct. Intrao rbital contents are unremarkable. Right side: Subclavian artery is widely patent. Vertebral artery is codominant and widely patent. CCA is widely patent. Minimal atherosclerotic plaque at the carotid bulb. ECA and ICA are widely patent. Left side: Subclavian artery is w idely patent. Codominant vertebral artery is widely patent. CCA, ICA and ECA are widely patent. IMPRESSION: Widely pat ent bilateral ICA, CCA and ECA and codominant vertebral arteries. Developing right MCA infarct with effacement of the frontal, temporal and parietal cortex. CTA [place] of [place]: 3-D images not available. Basilar artery is widely patent. S uperior cerebellar arteries are widely patent. Both STUDENT SERVICES COUNSELOR remain patent. Right posterior communicating artery is absent. The left is patent. A nterior communicating artery is patent. Bilateral elda ous, cavernous and the supraclinoid ICA remain widely patent. Diminutiv e left A1 segment on the left. A2 segment is normal PAGE 1 Signed Report (CONTINUED) Name: MELVIN ROWE [facility] : 1965 Age/S: 54 / M [address] [facility] Unit #: [id number] Loc: [place] [address] Phys: Perry Dyson MD Acct: [id number] Dis Date: Status: REG ER PHONE #: [phone] Exam Date: 0 08/23/2019749 FAX #: [phone] Reason: Code stroke EXAMS: CPT CODE: [id number] CTA NECK 61351 <Continued> and widely patent. Right A1 and A2 segments are widely patent. Right M1 segment occludes in the midportion. No flow noted distally. IMPRESSION: Occluded mid right M1 segment with no flow noted. Developing right MCA infarct is now visible. These findings were discussed with Dr. Dyson at 8:17 AM. FOR INTERNAL CODING PURPOSES ONLY RESULT CODE: CVR at 0820 Reported and signed by: Ced Watson M.D. CC: Perry Dyson MD Technologist:Luciana Herrmann RT(R)(CT) CTDI: DLP: Trnscb Date/Time: 08/23/2019 (08) t.[email or web address] Orig Print D/T: S: 08/23/2019 (0881) PAGE 2 Signed Report - CTA HEAD 2019-08-23 08:20:00 Name: MELVIN ROWE [facility] : 1965 Age/S: 54 / M [address] [facility] Unit #: [id number] Loc: [place] [address] Phys: Perry Dyson MD Acct: [id number] Dis Date: Status: REG ER PHONE #: [phone] Exam Date: 08/23/2019749 FAX #: [phone] Reason: Code stroke EXAMS: CPT CODE: [id number] CTA HEAD 52059 HISTORY: Stroke. COMPARISON: None available. Location: TH. CTA NECK: 3-D images not available. 100 mL of Isovue-370. Automated exposure control. NASCET criteria. The lung bases are clear. Dependent changes. The superior mediastinum is unremarkable. Thyroid glands are unremarkable. Mild DJD of the cervical spine. No pathologic adenopathy. Patent airway. Unremarkable thyroid glands. Symmetrical fossa of Rosenmueller. The tonsils are enlarged. Visualized brain parenchyma is enhancing homogeneously with effacement of the right frontal and temporal and parietal cortex suggestive of developing acute MCA infarct. Intraorbital contents are unremarkable. Right side: Subclavian artery is widely patent. Vertebral artery is codominant and widely patent. CCA is widely patent. Minimal atherosclerotic plaque at the carotid bulb. ECA and ICA are widely patent. Left side: Subclavian artery is widely patent. Codominant vertebral artery is widely patent. CCA, ICA and ECA are widely patent. IMPRESSION: Widely patent bilateral ICA, CCA and ECA and codominant vertebral arteries. Developing right MCA infarct with effacement of the frontal, temporal and parietal cortex. CTA [place] of [place]: 3-D images not available. Basilar artery is widely patent. S uperior cerebellar arteries are widely patent. Both STUDENT SERVICES COUNSELOR remain patent. Right posterior communicating artery is absent. The left is patent. A nterior communicating artery is patent. Bilateral elda ous, cavernous and the supraclinoid ICA remain widely patent. Diminutiv e left A1 segment on the left. A2 segment is normal PAGE 1 Signed Report (CONTINUED) Name: MELVIN ROWE [facility] : 1965 Age/S: 54 / M [address] [facility] Unit #: [id number] Loc: [place] [address] Phys: Perry Dyson MD Acct: [id number] Dis Date: Status: REG ER PHONE #: [phone] Exam Date: 08/23/2019 0750 FAX #: [phone] Reason: Code stroke EXAMS: CPT CODE: [id number] CTA HEAD 97297 <Continued> and widely patent. Right A1 and A2 segments are widely patent. Right M1 segment occludes in the midportion. No flow noted distally. IMPRESSION: Occluded mid right M1 segment with no flow noted. Developing right MCA infarct is now visible. These findings were discussed with Dr. Dyson at 8:17 AM. FOR INTERNAL CODING PURPOSES ONLY RESULT CODE: CVR at 0820 Reported and signed by: Ced Watson M.D. CC: Perry Dyson MD Technologist:Luciana Herrmann RT(R)(CT) CTDI: DLP: Trnscb Date/Time: 08/23/2019 (819) [email or web address] Orig Print D/T: S: 08/23/2019 (6647) PAGE 2 Signed Report BASIC METABOLIC [id number] 07:36:00* Test Item Value Reference Range Interpretation Comments SODIUM (test code = NA) 137 mmol/L 136-145 N POTASSIUM (test code = K) 3.8 mmol/L 3.5-5.1 N CHLORIDE (test code = CL) 111.0 mmol/L 98-107 H CARBON DIOXIDE (test code = CO2) 20.0 mmol/L 21-32 L ANION GAP (test code = GAP) 9.8 10-20 L GLUCOSE (test code = GLU) 121 mg/dL 74-106 H BLOOD UREA NITROGEN (test code = BUN) 13 mg/dL 7-18 N GLOMERULAR FILTRATION RATE (test code = GFR) > 60 mL/min >=60 Estimated GFR by using Modified MDRD formula.Chronic kidney disease is defined as either kidney damageor GFR <60 mL/min/1.73 m2 for >3 months. CREATININE (test code = CREAT) 1.00 mg/dL 0.7-1.3 N BUN/CREATININE RATIO (test code = BUN/CREA) 13.4 10-20 N CALCIUM (test code = CA) 8.7 mg/dL 8.5-10.1 N [id number] 07:36:00* Test Item Value Reference Range Interpretation Comments TROPONIN-I (test code = TROPI) <0.015 ng/mL 0-0.045 N - XR CHEST 1 [id number] 07:29:00 FAX: Palmira Don MD [phone] Lares: B St: REG Name: MELVIN YO [facility] : [birth year] Age/S: 54/M [facility]ina Cardenas Unit #: [id number] Loc: [place] [address] Phys: Palmira Don MD Acct: [id number] Dis Date: Status: REG ER PHONE #: [phone] Exam Date: 08/23/2019 0711 FAX #: [phone] Reason: CODE STROKE EXAMS: CPT CODE: [id number] XR CHEST 1 V 30475 HISTORY: Stroke. COM PARISON: None available. Location: TH. No acute infi ltrates, effusion or congestion is noted. Suboptimal inspiration with dep endent changes. Mild cardiomegaly. IMPRESSION: No acute infiltrates, effusion or congestion. Electronically Sig petty by Shaista Watson on 08/23/2019 at 0729 Reported and signed by: Ced Watson M.D. CC: Palmira Don MD Technologist: NATTY ZUÑIGA RT(R) Trnscrd Date/Time/By: 08/23/2019 (07) : By: Karly CotterTH4 Orig Print D/T: S: 08/23/2019 (0732) PAG E 1 Signed Report BASIC METABOLIC [id number] 07:27:00* Test Item Value Reference Range Interpretation Comments SODIUM (test code = NA) 137 mmol/L 136-145 N POTASSIUM (test code = K) 3.8 mmol/L 3.5-5.1 N CHLORIDE (test code = CL) 111.0 mmol/L 98-107 H CARBON DIOXIDE (test code = CO2) mmol/L 21-32 ANION GAP (test code = GAP) 10-20 GLUCOSE (test code = GLU) mg/dL 74-106 BLOOD UREA NITROGEN (test code = BUN) mg/dL 7-18 GLOMERULAR FILTRATION RATE (test code = GFR) mL/min >=60 CREATININE (test code = CREAT) mg/dL 0.7-1.3 BUN/CREATININE RATIO (test code = BUN/CREA) 10-20 CALCIUM (test code = CA) 8.7 mg/dL 8.5-10.1 N [id number] 07:27:00* Test Item Value Reference Range Interpretation Comments TROPONIN-I (test code = TROPI) ng/mL 0-0.045 - CT HEAD/BRAIN W/O [id number] 07:24:00 Name: MELVIN ROWE [facility] : 1965 Age[facility]S: 54 / [facility] [address] [facility] [id number] Loc: [place] [address] Phys: Palmira Don MD Acct: [id number] Dis Date: Status: REG ER PHONE #: [phone] Exam Date: 08/23/2019 07 FAX #: [phone] Reason: L deficit w/ droop EXAMS: CPT CODE: [id number] CT HEAD/BRAIN W/O CONT 43932 HISTORY: Left deficit and facial droop. COMPARISON: None available. CT brain without contrast: Automated exposure control. Location: TH. No acute intracranial bleeds or extra-axial collections are noted. No acute territorial vascular infarction is noted. Suspicion for right dense MCA sign. The sulci, gyri, ventricles and subarachnoid spaces and the basilar cisterns are normal for patient's age. No herniation or h ydrocephalus or midline shift is noted. Mild periventricular ischemic gliosis is noted. Age-appropriate atrophy is noted as well. Portions of the visualized paranasal sinuses demonstrated bilateral ethmoid sinusitis. Underpneumatized mastoid air cells bilaterally. No obvious bony calvarial defect is noted. IMPRESSION: No acute intracranial bleeds or extra-axial collections. No acute territorial vascular infarction. Possible dense right MCA sign. No herniation or hydrocephalus or midline shift. Chronic white matter ischemic disease and atrophy . These findings were discussed with Dr. Dyson at 7:21 AM. FOR INTERNAL CODING PURPOSES ONLY RESULT CODE: CVR Electronically Signed by Shaista Watson on 08/22 at 0724 Reported and signed by: Ced Watson M.D. PAGE 1 Signed Report (CONTINUED) Name: MELVIN ROWE [place] D OB: 1965 Age/S: 54 / M [address] [facility] Unit #: [id number] Loc: [place] [address] Phys: Palmira Don MD Acct: [id number] Dis Date: Status: REG ER PHONE #: [phone] Exam Date: 08/23/2019 0710 FAX #: Reason: L deficit w/ droop EXAMS: CPT CODE: [id number] CT HEAD/BRAIN W/O CONT [id number] <Continued> CC: Palmira Don MD Technologist:Luciana Herrmann RT(R)(CT) CTDI: DLP: Trnscb Date/Time: 08/23/2019 (723) [email or web address] Orig Print D/T: S: 08/23/2019 (07) PAGE 2 Signed Report CBC W/AUTO [id number] 07:21:00* Test Item Value Reference Range Interpretation Comments WHITE BLOOD CELL (test code = WBC) 8.5 K/mm3 4.5-12.5 N RED BLOOD CELL (test code = RBC) 5.35 mill/mm3 4.0-5.8 N HEMOGLOBIN (test code = HGB) 17.8 gram/dL 13.0-17.5 H HEMATOCRIT (test code = HCT) 51.3 % 42.0-52.0 N MEAN CELL VOLUME (test code = MCV) 95.9 fL 80-98 N MEAN CELL HGB (test code = MCH) 33.3 picogram 27.0-33.0 H MEAN CELL HGB CONCETRATION (test code = MCHC) 34.7 gram/dL 33.0-36. 0 N RED CELL DISTRIBUTION WIDTH (test code = RDW) 13.9 % 11.6-16. 2 N RED CELL DISTRIBUTION WIDTH SD (test code = RDW-SD) 49.0 fL 37 .0-51.0 N PLATELET COUNT (test code = PLT) 225 K/mm3 150-450 N MEAN PLATELET VOLUME (test code = MPV) 9.7 fL 6.7-11.0 N NEUTROPHIL % (test code = NT%) 70.2 % 39.0-69.0 H IMMATURE GRANULOCYTE % (test code = IG%) 0.4 % 0.0-5.0 N LYMPHOCYTE % (test code = LY%) 16.4 % 25.0-55.0 L MONOCYTE % (test code = MO%) 11.6 % 0.0-10.0 H EOSINOPHIL % (test code = EO%) 1.2 % 0.0-5.0 N BASOPHIL % (test code = BA%) 0.2 % 0.0-1.0 N NUCLEATED RBC % (test code = NRBC%) 0.0 % 0-0 N NEUTROPHIL # (test code = NT#) 5.97 K/mm3 1.8-7.7 N IMMATURE GRANULOCYTE # (test code = IG#) 0.03 x10 3/uL 0-0.03 N LYMPHOCYTE # (test code = LY#) 1.39 K/mm3 1.0-5.0 N MONOCYTE # (test code = MO#) 0.99 K/mm3 0-0.8 H EOSINOPHIL # (test code = EO#) 0.10 K/mm3 0.0-0.5 N BASOPHIL # (test code = BA#) 0.02 K/mm3 0.0-0.2 N NUCLEATED RBC # (test code = NRBC#) 0.00 K/mm3 0.0-0.1 N PROTHROMBIN [id number] 07:18:00* Test Item Value Reference Range Interpretation Comments PROTHROMBIN TIME PATIENT (test code = PTP) 11.8 seconds 9.0-14.0 N INTERNATIONAL NORMAL RATIO (test code = INR) 1.0 0.8-1.2 N The therapeutic range for oral anticoagulant therapy formost indications is an international normalized ratio (INR)of between 2.0 and 3.0. The recommended therapeutic INRrange for various clinical situations is listed below: Clinical Situation INR range Pulmonary e mbolism treatment (2.0-3.0)Venous thrombosis treatmentVenous thrombosis prophylaxis (high risk surgery)Prevention of systemic embolism from: Acute myocardial infarction Valvular heart disease Atrial fibrillation Mechanical prosthetic heart valves (2.5-3.5) IS PATIENT ON ANTICOAGULANTS? NTHROMBOPLASTIN TIME [id number] 07:18:00* Test Item Value Reference Range Interpretation Comments THROMBOPLASTIN TIME PARTIAL (test code = PTT) 35.1 seconds 23.0-37. 0 N IS PATIENT ON ANTICOAGULANTS? N
--- NOTE | 2019-12-07 20:38 | NUR ---
bladder scan amount =20cc after straight cath was done. straight cath total= 60 cc
[2019-12-07 20:42] LABS: CLARITY,URINE SL CLOUDY (CLEAR); COLOR,URINE YELLOW (YELLOW)
[2019-12-07 20:43] LABS: BILIRUBIN,URINE SMALL (NEGATIVE); KETONES,URINE TRACE (NEGATIVE); LEUKOCYTE ESTERASE ,URINE NEGATIVE (NEGATIVE); NITRITE,URINE NEGATIVE (NEGATIVE); PROTEIN,URINE DIPSTICK NEGATIVE (NEGATIVE); URINE UROBILINOGEN 1 mg/dL (0.2 - 1)
[2019-12-07 20:46] LABS: BACTERIA,URINE RARE /HPF; EPITHELIAL CELLS,URINE RARE /LPF; MUCUS,URINE FEW (RARE); RBC,URINE 0-5 /HPF (0-5); WBC,URINE (MAN) 0-5 /HPF (0-5)
[2019-12-07 20:58] LABS: PHENCYCLIDINE SCREEN,URINE NEGATIVE (NEGATIVE)
[2019-12-07 20:59] LABS: AMPHETAMINES SCREEN,URINE POSITIVE (NEGATIVE); BENZODIAZEPINES SCREEN,URINE NEGATIVE (NEGATIVE)
--- NOTE | 2019-12-07 21:07 | Emergency Department Note ---
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 PRESENTS TO ED WITH REPORT OF FOUL ODOR TO URINE AND DYSURIA X1 WEEK; DENIES ANY FURTHER COMPLAINTS Historian: Patient, Supervisor Partial Denture Department/EMS Arrival Mode: [place] Worker Required: No Onset (how long ago): week(s) (1) Location: Urine Quality: decreaes output Radiation: Reports non-radiation Severity: mild Onset quality: gradual Duration (how long): week(s) (1) Timing of current episode: constant Progression: unchanged Chronicity: new Context: Denies recent illness, Denies recent surgery Relieving factors: none Exacerbating factors: none Associated symptoms: Reports denies other symptoms Treatments prior to arrival: none Past Medical/Family History Physician Review I have reviewed the patient's past medical and family history. Any updates have been documented here. Past Medical History Recent Fever: No Clinical Suspicion of Infectio: No New/Unexplained Change in Ment: No Past Medical History: Hypertension, CVA, A-Fib, CAD Other Medical History: LEFT SIDED DEFICIT Other Surgery: MITRAL VALVE REPAIR Review of Systems Review of Systems Constitutional: Reports no symptoms EENTM: Reports no symptoms Cardiovascular: Reports no symptoms Respiratory: Reports no symptoms Gastrointestinal: Reports no symptoms Genitourinary: Reports as per HPI Musculoskeletal: Reports no symptoms Integumentary: Reports no symptoms Neurological: Reports no symptoms Psychological: Reports no symptoms Endocrine: Reports no symptoms Hematological/Lymphatic: Reports no symptoms Physical Exam Related Data Allergies: Coded Allergies: Penicillins (Verified Allergy, Intermediate, 12/07/19) Triage Vital Signs Vital Signs Date Time Temp Pulse Resp B/P (MAP) Pulse Ox O2 Delivery O2 Flow Rate FiO2 12/07/19 19:11 100 18 111/74 97 12/07/19 19:43 98.2 Room Air Vital signs reviewed: Yes Physical Exam CONSTITUTIONAL Constitutional: Present well-developed, Present well-nourished HENT HENT: Present normocephalic, Present atraumatic, Present oropharynx clear/moist, Present nose normal HENT L/R: Present left ext ear normal, Present right ext ear normal EYES Eyes: Reports PERRL, Reports conjunctivae normal NECK Neck: Present ROM normal PULMONARY Pulmonary: Present effort normal, Present breath sounds normal CARDIOVASCULAR Cardiovascular: Present regular rhythm, Present heart sounds normal, Present capillary refill normal, Present normal rate GASTROINTESTINAL Abdominal: Present soft, Present nontender, Present bowel sounds normal GENITOURINARY Genitourinary: Present exam deferred SKIN Skin: Present warm, Present dry MUSCULOSKELETAL Musculoskeletal: Present ROM normal NEUROLOGICAL Neurological: Present alert, Present oriented x 3, Present weakness (L arm (chronic)), Present other (Left hand held in flexion at the wrist (chronic since stroke)); Absent cranial nerve deficit PSYCHOLOGICAL Psychological: Present mood/affect normal, Present judgement normal Results Laboratory Laboratory Laboratory Tests Test 12/07/19 19:55 Urine Color Yellow (YELLOW) Urine Clarity Sl cloudy (CLEAR) Urine pH 5.5 (5 - 7) Urine Specific [place] 1.030 (1.010-1.025) Urine Protein Negative (NEGATIVE) Urine Glucose (UA) Negative (NEGATIVE) Urine Ketones Trace (NEGATIVE) Urine Blood Negative (NEGATIVE) Urine Nitrite Negative (NEGATIVE) Urine Bilirubin Small (NEGATIVE) Urine Urobilinogen 1 mg/dL (0.2 - 1) Urine Leukocyte Esterase Negative (NEGATIVE) Urine RBC 0-5 /HPF (0-5) Urine WBC 0-5 /HPF (0-5) Urine Epithelial Cells Rare /LPF (NONE) Urine Bacteria Rare /HPF (NONE) Urine Mucus Few (RARE) Urine Opiates Screen Negative (NEGATIVE) Urine Methadone Screen Negative (NEGATIVE) Urine Barbiturates Screen Negative (NEGATIVE) Urine Phencyclidine Screen Negative (NEGATIVE) Urine Amphetamines Screen Positive (NEGATIVE) Urine Methamphetamines Screen Negative (NEGATIVE) Urine Benzodiazepines Screen Negative (NEGATIVE) Urine Cocaine Screen Negative (NEGATIVE) Urine Cannabinoids Screen Negative (NEGATIVE) Assessment & Plan Medical Decision Making MDM 54 -year-old male with a past medical history significant for recent stroke presents to the emergency department for decreased urine output. Initial differential includes urinary retention versus urinary tract infection versus dehydration among others. W/u benign. Doubt UTI at this time. He was able to void and does not have any significant retention. Discussed need to f/u w/ his PCP or return to the ED for new/worsening symptoms. Reassessment Reassessment time: 21:06 Reassessment Well appearing, NAD Assessment & Plan Final Impression: (1) Decreased urine output Depart Disposition: HOME, SELF-CARE Last Vital Signs Date Time Temp Pulse Resp B/P (MAP) Pulse Ox O2 Delivery O2 Flow Rate FiO2 12/07/19 19:43 98.2 97 16 104/80 99 Room Air AMIRAH LAWSON MD Dec 07, 2019 21:07
[2019-12-07 21:12] LABS: BASOPHILS % 0.3 % (0.0-1.0); EOSINOPHILS # (AUTO) 0.1 (0.0-0.4); EOSINOPHILS % 1.2 % (0.0-6.0); HEMATOCRIT 46.9 % (38.2-49.6); HEMOGLOBIN 15.4 g/dL (14.0-18.0); LYMPHOCYTES # (AUTO) 1.9 (1.0-3.2); LYMPHOCYTES % 28.1 % (18.0-39.1); MEAN CORPUSCULAR HEMOGLOBIN 30.3 pg (28-32); MEAN CORPUSCULAR HGB CONC 32.8 g/dL (31-35); MEAN CORPUSCULAR VOLUME 92.3 fL (81-99); MONOCYTES # (AUTO) 0.7 (0.2-0.8); NEUTROPHILS # (AUTO) 3.9 (2.1-6.9); NEUTROPHILS % 58.9 % (38.7-80.0); PLATELET COUNT 253 x10e3/uL (140-360); RED BLOOD COUNT 5.08 x10e6/uL (4.3-5.7); RED CELL DISTRIBUTION WIDTH 13.6 % (11.7-14.4)
[2019-12-07 21:29] LABS: ALANINE AMINOTRANSFERASE 29 IU/L (0-55); ALBUMIN 3.4 g/dL (3.5-5.0); ALBUMIN/GLOBULIN RATIO 1.1 (0.8-2.0); ALKALINE PHOSPHATASE 102 IU/L (40-150); BLOOD UREA NITROGEN 19 mg/dL (7-26); BUN/CREATININE RATIO 16 (6-25); CALCIUM 8.1 mg/dL (8.4-10.2); CARBON DIOXIDE 26 mmol/L (22-29); CHLORIDE 105 mmol/L (98-107); CREATININE, SERUM 1.19 mg/dL (0.72-1.25); EST GLOMERULAR FILTRATION RATE > 60 ML/MIN (60-); GLUCOSE 78 mg/dL (74-118); SODIUM 138 mmol/L (136-145)
[2019-12-07 22:02] LABS: AMYLASE 22 U/L (25-125); LIPASE 24 U/L (8-78)
[2019-12-07 22:52] LABS: CREATINE KINASE MB 0.4 ng/mL (0-5.0)
--- NOTE | 2019-12-07 23:00 | NUR ---
patient has urinated in urinal a total of 400cc since being here, denies pain. education was provided to patient from this nurse and dr alexandra, patient states he ocassionally self caths.
--- NOTE | 2019-12-07 23:00 | NUR ---
dr alexandra has cleared patient for discharge. bedside rounding made by this nurse and .
[2019-12-08 00:22] VITALS: BP 101/82
== END 2019-12-07 23:36 | disposition home or self-care (01) ==
LOC: ER 19:56
DX: R39.198 Other difficulties with micturition (principal); I10 Essential (primary) hypertension; I25.10 Atherosclerotic heart disease of native coronary artery without angina pectoris; I69.354 Hemiplegia and hemiparesis following cerebral infarction affecting left non-dominant side
CPT/HCPCS: 36415; 80053; 80307; 81001; 82150; 82550; 82553; 83690; 84484; 85025; 87086; 99283